=== PATIENT | female | born 1955 | race Caucasian/White ===

== ENCOUNTER 2018-05-30 07:00 | Outpatient (CLI) | payer BC, SELFPAY ==
--- NOTE | 2018-05-30 08:00 | DI.RAD_ITS ---
SYMPTOM/DIAGNOSIS: RT KNEE PAIN, M25.561 RIGHT KNEE: Three views. No priors. No acute fracture or dislocation is seen. The articular surfaces are well maintained. There are calcifications seen within the medullary portion of the distal right femoral metaphysis. Its appearance and location is most suggestive of a benign lesion such as an enchondroma or bone infarct. The soft tissues are unremarkable. IMPRESSION: No acute abnormality.
== END 2018-05-30 07:20 ==
PROVIDERS: PCP Physician Assistant Medical; Visit Provider Physician Assistant Medical
DX: M25.561 Pain in right knee (principal)
CPT/HCPCS: 73562

== ENCOUNTER 2019-09-08 18:48 | Emergency (ER) | payer BC, SELFPAY ==
[2019-09-08 18:54] VITALS: BP 120/78; PULSE 65; RESP 14; TEMP 36.6; O2SAT 96
[2019-09-08] MEDS: Lidocaine 5% Patch 1 PATCH TP (19:28)
[2019-09-08] MEDS: diazePAM 5 MG TAB PO (19:28)
--- NOTE | 2019-09-08 19:28 | ED.GENADUL_ITS ---
Discharge Plan Disposition Patient Disposition: HOME Condition: Improving Discharge Details Chief Complaint: Nk/Back Pain Clinical Impression: Spasm of back muscles Primary Care Provider: Leslie Puri ED Provider: Sergei Freeman Home Meds and New Rx's Prescriptions: New diazepam [Valium] 2 mg tablet 2 mg PO BID PRN (Reason: muscle spasm) Qty: 10 RF: 0 Continued calcium carbonate [Calcium 500] 500 MG tablet 500 mg PO DAILY RF: 0 ascorbic acid (vitamin C) [Vitamin C] 500 MG capsule, extended release 500 mg PO DAILY RF: 0 Estring 1 EACH ring 1 ea VG DIRECTED RF: 0 Complete B 1 tab DAILY RF: 0 Max antioxidant 1 tab DAILY RF: 0 Vitamin D 1 cap PO DAILY RF: 0 magnesium amino acid chelate 100 MG tablet 100 mg PO DAILY RF: 0 melatonin-pyridoxine (vit B6) 1 TAB tablet 1 tab PO HS RF: 0 Discharge Instructions Instructions: Muscle Spasm (ED) Additional Instructions: Please take ibuprofen over the counter. Take 600mg by mouth every 6 hours as needed for pain. Use of the counter lidocaine patches -dose according to label. Please contact your primary care physician to arrange follow-up. Return to the ER immediately for any worsening or new concerning symptoms. Referrals: Leslie Puri [Primary Care Provider] - Discharge Data Discharge Date/Time-TO BE ENTERED AT DEPARTURE: 09/08/19 20:17 Medical Decision Making 19:30 --63-year-old female here with left thoracolumbar paraspinal muscle spasm. Neurologically intact. No trauma. Patient took ibuprofen 600 mg just prior to arrival. Plan to treat with Valium 5 mg orally as well as lidocaine patch. Plan to reassess. -- Patient reassessed and pain improved. Plan for outpatient follow-up with PCP. Usual an customary discharge instructions were provided. HPI General Mode of arrival: ambulatory . Date/Time Provider Initiated Documentation: 09/08/19 19:00 . Limitations to Documentation: no limitations . Information obtained by: patient . HPI Narrative: 63-year-old female presents with chief complaint of back spasm. Patient notes that for the past 1 week she has had intermittent left-sided mid to low back spasm. Spasm is worse with bending and twisting. She has no associated bowel or bladder dysfunction. No numbness or tingling. She does note similar on the right side of her back approximately 2 weeks ago that is now resolved and also prior to this some sciatic pain in her back. She currently does not have any sciatic pain. Patient denies associated fever. Denies abdominal pain. No recent trauma. Patient was recently seen at urgent care and started on methocarbamol which initially was helping but then she developed loose stool and stopped taking this. Related Data Home Medications Medication Instructions Recorded Confirmed Complete B 1 tab DAILY 12/26/14 09/08/19 Estring 1 ea VG DIRECTED script 12/26/14 09/08/19 Max Antioxidant 1 tab DAILY 12/26/14 09/08/19 Vitamin D 1 cap PO DAILY 12/26/14 09/08/19 ascorbic acid (vitamin C) [Vitamin 500 mg PO DAILY 12/26/14 09/08/19 C] calcium carbonate [Calcium 500] 500 mg PO DAILY 12/26/14 09/08/19 melatonin-pyridoxine (vit B6) 1 tab PO HS 04/08/15 09/08/19 magnesium amino acid chelate 100 mg PO DAILY 02/11/17 09/08/19 diazepam [Valium] 2 mg PO BID PRN #10 tab 09/08/19 Previous Rx's Medication Instructions Recorded diazepam [Valium] 2 mg PO BID PRN #10 tab 09/08/19 Allergies Allergy/AdvReac Type Severity Reaction Status Date / Time latex Allergy Intermediate rash Unverified 09/08/19 19:00 codeine AdvReac Nausea Unverified 09/08/19 19:00 lactose AdvReac bloating, Unverified 09/08/19 19:00 diarrhea tetracycline AdvReac migraine Unverified 09/08/19 19:00 if on and out in sunlight dermabond AdvReac Intermediate severe rash Uncoded 09/08/19 19:00 surgical drapes AdvReac Intermediate severe rash Uncoded 09/08/19 19:00 surgical tape AdvReac Intermediate severe rash Uncoded 09/08/19 19:00 General Stated Complaint: Nk/Back Pain CHARITO: 3 Review of Systems Constitutional Constitutional: Denies fever(s) Gastrointestinal Gastrointestinal: Denies abdominal pain Musculoskeletal Musculoskeletal: Reports as per HPI Integumentary/Breasts Skin/Breast: Denies rash Neurologic Neurologic: Reports as per HPI [facility] Medical History AK (actinic keratosis) Elevated triglycerides with high cholesterol Low serum triiodothyronine (T3) Medina neuroma Postmenopausal atrophic vaginitis Surgical History Cholecystectomy (04/09/15) Dr. Nidhi Bowman Colonoscopy - IV Sedation (03/04/17) Excision, Neuroma Bilateral Medina's Neuroma Family History Mother No problems noted. Father Neoplasm Social History Smoking/Tobacco Use Status: Never Alcohol Intake: current Alcohol Intake frequency: holidays/special occasions only Alcohol type: wine Drug use: Never Substance use type: marijuana Do you feel safe at home: Yes Do you feel safe in your relationship?: Yes Exam Const General: cooperative and no acute distress HENMT Mouth: moist mucous membranes Eyes Conjunctivae: normal conjunctivae Sclera: normal sclerae Resp Auscultation: clear to auscultation bilaterally, no rales, no rhonchi and no wheezes Cardio Jugular venous pressure: no JVD Rate: regular rate and not tachycardic Rhythm: regular rhythm Back/Spine/Pelvis Thoracic/Lumbar Spine: paraspinal tenderness (Lower thoracic and upper lumbar left with spasm), No thoracic spinal tenderness and No lumbar spinal tenderness Neuro General: alert, awake and tone normal Motor: muscle tone normal throughout and other (Motor intact bilateral lower extremities) Sensory Exam: no sensory deficits noted (Bilateral lower extremities including no saddle anesthesia) DTR's: Rt Patellar: 1+ and Lt Patellar: 1+ Extrem General: no edema Psych Appearance: grossly normal Mental Status: mental status grossly normal Course Vital Signs Vital signs: Vital Signs Temperature 36.6 C 09/08/19 18:54 Pulse 65 09/08/19 18:54 Respiratory Rate 14 09/08/19 18:54 Blood Pressure 120/78 09/08/19 18:54 Pulse Oximetry 96 09/08/19 18:54 Temperature 36.6 C 09/08/19 18:54 Temperature Source Tympanic 09/08/19 18:54 Pulse 65 09/08/19 18:54 Respiratory Rate 14 09/08/19 18:54 Respiratory Effort Non-Labored 02/15/20 18:58 Blood Pressure 120/78 02/15/20 18:54 Blood Pressure Position Sitting 09/08/19 18:54 Pulse Oximetry 96 09/08/19 18:54 Pain Level 10 09/08/19 18:54 Comment 09/08/19 18:54
== END 2019-09-08 20:17 | disposition home or self-care (01) ==
PROVIDERS: Emergency Provider Student in an Organized Health Care Education/Training Program; PCP Physician Assistant Medical
DX: M62.830 Muscle spasm of back (principal)
CPT/HCPCS: 99283

== ENCOUNTER 2019-09-27 10:49 | Outpatient (CLI) | payer BC, SELFPAY ==
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
== END 2019-09-27 11:09 ==
PROVIDERS: PCP Physician Assistant Medical; Visit Provider Physician Assistant Medical
DX: R07.81 Pleurodynia (principal); R91.8 Other nonspecific abnormal finding of lung field; M85.88 Other specified disorders of bone density and structure, other site; M85.811 Other specified disorders of bone density and structure, right shoulder; M54.32 Sciatica, left side; M84.88 Other disorders of continuity of bone, other site; M53.84 Other specified dorsopathies, thoracic region; S32.040A Wedge compression fracture of fourth lumbar vertebra, initial encounter for closed fracture; Z91.81 History of falling
CPT/HCPCS: 71046; 71100; 72110

== ENCOUNTER 2019-09-28 06:51 | Outpatient (CLI) | payer BC, SELFPAY ==
--- NOTE | 2019-09-28 | DI.RAD_ITS ---
EXAM: XR BONE SURVEY INDICATION: LYTIC LESION BACK AND RIBS,M84.88, ?METASTATIC VS MULTIPLE MYELOMA. COMPARISON: ABD PELVIS WITH CONTRAST from 09/12/2015 XR LUMBAR SPINE COMPLETE from 09/27/2019 TECHNIQUE: 2D digital imaging was performed. FINDINGS: There is a moderate T8 compression fracture. There is a question of a lucency on the left side of th e vertebral body. The technical quality is not optimal. Lucencies of the T12 and L4 vertebral yimi s are again noted. There are innumerable small low-density lesions in the skull. Heart size is norm al. The lungs appear clear. There is deformity of the of the left 3rd rib which could represent an old fracture. There is a suggestion of multiple lucencies throughout the cervical spine. Numerous l ucencies are noted in the right humerus, greatest in the midportion of the humerus. The scapula also shows abnormal lucencies. The left humerus shows numerous small lytic lesions. There is a question of lytic lesions in the proximal portion of both femurs. IMPRESSION: Lytic lesions are seen throughout the axial and appendicular skeleton. The appearance favors multip le myeloma. DATA REPOSITORY: RADIATION DOSE DELIVERED:
== END 2019-09-28 07:11 ==
PROVIDERS: PCP Physician Assistant Medical; Visit Provider Physician Assistant Medical
DX: M84.88 Other disorders of continuity of bone, other site (principal); M48.54XA Collapsed vertebra, not elsewhere classified, thoracic region, initial encounter for fracture
CPT/HCPCS: 77075

== ENCOUNTER 2019-09-30 16:17 | Outpatient (REF) | payer BC, SELFPAY ==
[2019-10-02 15:29] LABS: Albumin, Urine % 2.1 % ((See Note)); Globulins, Urine % 97.9 %; Total Protein Urine 55 mg/dL (See Note); Total Protein, Urine 24hrs 1306 mg/24hrs (<150); Urine Volume 2375 mL
[2019-10-03 09:28] LABS: Immunotyping, Urine (See Note)
== END 2019-09-30 16:37 ==
LOC: LBN 16:17
PROVIDERS: PCP Physician Assistant Medical; Referring Provider Internal Medicine; Visit Provider Physician Assistant Medical
DX: R93.7 Abnormal findings on diagnostic imaging of other parts of musculoskeletal system (principal)
CPT/HCPCS: 84156; 84166; 86335; 81050

== ENCOUNTER 2019-10-21 09:31 | Outpatient (CLI) | payer BC, SELFPAY ==
[2019-10-21 09:45] LABS: Abs Immature Grans 0.02 k/cumm (0.0-0.09); Absolute Basophil Count 0.02 k/cumm (0.0-0.2); Absolute Eosinophil Count 0.01 k/cumm (0.0-0.7); Basophils % 0.2; Eosinophils % 0.1; HCT 34.2 % (36.0-46.0); HGB 11.5 g/dL (12.0-15.5); Immature Grans % 0.2 %; Lymphocytes % 42.7; Mean Corp. HGB Concentration 33.6 g/dL (32.0-36.0); Mean Corpuscular Hemoglobin 31.9 pg (27.0-33.0); Mean Platelet Volume 10.3 fL (8.0-11.0); Monocytes % 5.4; Neutrophils % 51.4; RBC Distribution Width 12.3 % (11.7-14.6); White Blood Cell Count 12.33 k/cumm (4.4-10.8)
[2019-10-21 09:58] LABS: ALT 103 U/L (14-59); AST 100 U/L (15-37); Albumin 3.1 g/dL (3.4-5.0); Alkaline Phosphatase 87 U/L (46-116); Anion Gap 9.8 mmol/L (3-11); BUN 21 mg/dL (7-18); Bilirubin, Total 0.4 mg/dL (0.2-1.0); CO2 24.2 mmol/L (21.0-32.0); Calcium 8.9 mg/dL (8.5-10.1); Chloride 102 mmol/L (98-107); Glucose 102 mg/dL (74-106); Potassium 3.6 mmol/L (3.5-5.1); Sodium 136 mmol/L (136-145); Total Protein 8.5 g/dL (6.4-8.2)
[2019-10-21 10:08] LABS: Absolute Lymphocyte Count 5.26 k/cumm (1.2-3.4); Absolute Monocyte Count 0.67 k/cumm (0.11-0.7); Absolute Neutrophil Count 6.34 k/cumm (1.2-6.7); Diff Comment Agrees w/ Instrument
[2019-10-21 10:09] LABS: Platelet Count 336 x1000/uL (130-400); Polychromasia Present
[2019-10-23 11:52] LABS: IgA 86 mg/dL (85-499); IgG 2643 mg/dL (610-1,616); IgM 43 mg/dL (35-242); Kappa Free Light Chain 54.91 mg/dL (0.33-1.94); Lambda Free Light Chain <0.44 mg/dL (0.57-2.63)
[2019-10-24 13:02] LABS: Albumin 47.6 % (55.8-66.1); Comment (See Note); Total Protein 7.9 g/dL (6.3-8.2)
[2019-10-24 15:20] LABS: Immunotyping, Serum (See Note)
== END 2019-10-21 09:51 ==
PROVIDERS: PCP Physician Assistant Medical; Visit Provider Internal Medicine Hematology & Oncology
DX: C90.00 Multiple myeloma not having achieved remission (principal)
CPT/HCPCS: 36415; 80053; 82784; 83883; 84165; 85025; 86320

== ENCOUNTER 2019-10-29 02:18 | Outpatient (CLI) | payer BC, SELFPAY ==
[2019-10-29 13:01] LABS: Abs Immature Grans 0.07 k/cumm (0.0-0.09); Absolute Basophil Count 0.04 k/cumm (0.0-0.2); Absolute Eosinophil Count 0.17 k/cumm (0.0-0.7); Absolute Lymphocyte Count 3.37 k/cumm (1.2-3.4); Absolute Monocyte Count 0.53 k/cumm (0.11-0.7); Absolute Neutrophil Count 4.19 k/cumm (1.2-6.7); Basophils % 0.5; HCT 34.7 % (36.0-46.0); HGB 11.7 g/dL (12.0-15.5); Immature Grans % 0.8 %; Lymphocytes % 40.3; Mean Corp. HGB Concentration 33.7 g/dL (32.0-36.0); Mean Corpuscular Hemoglobin 32.2 pg (27.0-33.0); Mean Corpuscular Volume 95.6 fL (80-95); Mean Platelet Volume 10.4 fL (8.0-11.0); Monocytes % 6.3; Neutrophils % 50.1; Platelet Count 301 x1000/uL (130-400); RBC 3.63 m/cumm (4.00-5.20); RBC Distribution Width 12.8 % (11.7-14.6); White Blood Cell Count 8.37 k/cumm (4.4-10.8)
[2019-10-29 13:15] LABS: ALT 295 U/L (14-59); AST 132 U/L (15-37); Albumin 3.1 g/dL (3.4-5.0); Alkaline Phosphatase 153 U/L (46-116); Anion Gap 7.2 mmol/L (3-11); BUN 9 mg/dL (7-18); Bilirubin, Total 0.2 mg/dL (0.2-1.0); CO2 27.8 mmol/L (21.0-32.0); CREATININE 0.72 mg/dL (0.55-1.02); Calcium 7.7 mg/dL (8.5-10.1); Chloride 103 mmol/L (98-107); Glucose 99 mg/dL (74-106); Potassium 3.6 mmol/L (3.5-5.1); Sodium 138 mmol/L (136-145); Total Protein 7.7 g/dL (6.4-8.2)
[2019-10-30 10:45] LABS: IgA 72 mg/dL (85-499); IgG 1830 mg/dL (610-1,616); IgM 41 mg/dL (35-242); Kappa Free Light Chain 41.13 mg/dL (0.33-1.94); Lambda Free Light Chain 0.72 mg/dL (0.57-2.63)
[2019-10-30 15:27] LABS: Beta-2-Microglobulin 2.22 mcg/mL
[2019-10-31 16:00] LABS: Comment (See Note); Monoclonal Spike 23.6 % (None Seen); Total Protein 7.2 g/dL (6.3-8.2)
[2019-10-31 22:29] LABS: Viscosity, S 1.1 cpoise (<=1.5)
== END 2019-10-29 02:38 ==
PROVIDERS: PCP Physician Assistant Medical; Visit Provider Internal Medicine Hematology & Oncology
DX: C90.00 Multiple myeloma not having achieved remission (principal)
CPT/HCPCS: 36415; 80053; 82784; 82232; 83883; 84165; 85025; 85810

== ENCOUNTER 2019-11-02 09:22 | Outpatient (CLI) | payer BC, SELFPAY ==
[2019-11-02 09:35] LABS: Abs Immature Grans 0.05 k/cumm (0.0-0.09); Absolute Basophil Count 0.04 k/cumm (0.0-0.2); Absolute Eosinophil Count 0.16 k/cumm (0.0-0.7); Absolute Lymphocyte Count 2.41 k/cumm (1.2-3.4); Absolute Neutrophil Count 4.71 k/cumm (1.2-6.7); Basophils % 0.5; HCT 33.1 % (36.0-46.0); HGB 11.2 g/dL (12.0-15.5); Immature Grans % 0.6 %; Lymphocytes % 29.5; Mean Corp. HGB Concentration 33.8 g/dL (32.0-36.0); Mean Corpuscular Hemoglobin 32.2 pg (27.0-33.0); Mean Corpuscular Volume 95.1 fL (80-95); Mean Platelet Volume 10.5 fL (8.0-11.0); Monocytes % 9.8; Neutrophils % 57.6; Platelet Count 321 x1000/uL (130-400); RBC 3.48 m/cumm (4.00-5.20); RBC Distribution Width 12.7 % (11.7-14.6); White Blood Cell Count 8.17 k/cumm (4.4-10.8)
[2019-11-02 09:50] LABS: ALT 191 U/L (14-59); AST 120 U/L (15-37); Albumin 2.9 g/dL (3.4-5.0); Alkaline Phosphatase 139 U/L (46-116); Anion Gap 10.1 mmol/L (3-11); BUN 12 mg/dL (7-18); Bilirubin, Total 0.4 mg/dL (0.2-1.0); CO2 23.9 mmol/L (21.0-32.0); Calcium 8.5 mg/dL (8.5-10.1); Chloride 106 mmol/L (98-107); Glucose 90 mg/dL (74-106); Potassium 3.9 mmol/L (3.5-5.1); Sodium 140 mmol/L (136-145); Total Protein 7.4 g/dL (6.4-8.2)
== END 2019-11-02 09:42 ==
PROVIDERS: PCP Physician Assistant Medical; Visit Provider Internal Medicine Hematology & Oncology
DX: C90.00 Multiple myeloma not having achieved remission (principal)
CPT/HCPCS: 36415; 80053; 85025

== ENCOUNTER 2019-11-06 01:53 | Outpatient (CLI) | payer BC, SELFPAY ==
[2019-11-06 10:24] LABS: Abs Immature Grans 0.02 k/cumm (0.0-0.09); Absolute Basophil Count 0.02 k/cumm (0.0-0.2); Absolute Eosinophil Count 0.11 k/cumm (0.0-0.7); Absolute Lymphocyte Count 0.99 k/cumm (1.2-3.4); Absolute Monocyte Count 0.25 k/cumm (0.11-0.7); Absolute Neutrophil Count 5.33 k/cumm (1.2-6.7); Basophils % 0.3; Eosinophils % 1.6; HCT 35.2 % (36.0-46.0); HGB 11.7 g/dL (12.0-15.5); Immature Grans % 0.3 %; Lymphocytes % 14.7; Mean Corp. HGB Concentration 33.2 g/dL (32.0-36.0); Mean Corpuscular Hemoglobin 31.9 pg (27.0-33.0); Mean Corpuscular Volume 95.9 fL (80-95); Mean Platelet Volume 10.7 fL (8.0-11.0); Monocytes % 3.7; Neutrophils % 79.4; Platelet Count 312 x1000/uL (130-400); RBC 3.67 m/cumm (4.00-5.20); RBC Distribution Width 12.9 % (11.7-14.6); White Blood Cell Count 6.72 k/cumm (4.4-10.8)
[2019-11-06 11:20] LABS: ALT 122 U/L (14-59); AST 89 U/L (15-37); Albumin 3.1 g/dL (3.4-5.0); Alkaline Phosphatase 137 U/L (46-116); Anion Gap 8.6 mmol/L (3-11); BUN 9 mg/dL (7-18); Bilirubin, Total 0.3 mg/dL (0.2-1.0); CO2 27.4 mmol/L (21.0-32.0); CREATININE 0.73 mg/dL (0.55-1.02); Calcium 7.9 mg/dL (8.5-10.1); Chloride 105 mmol/L (98-107); Glucose 90 mg/dL (74-106); Sodium 141 mmol/L (136-145); Total Protein 6.4 g/dL (6.4-8.2)
[2019-11-08 11:20] LABS: IgA 94 mg/dL (85-499); IgG 2409 mg/dL (610-1,616); IgM 30 mg/dL (35-242); Lambda Free Light Chain 1.91 mg/dL (0.57-2.63)
== END 2019-11-06 02:13 ==
PROVIDERS: PCP Physician Assistant Medical; Visit Provider Internal Medicine Hematology & Oncology
DX: C90.00 Multiple myeloma not having achieved remission (principal)
CPT/HCPCS: 36415; 80053; 82784; 83883; 85025

== ENCOUNTER 2019-11-16 14:44 | Outpatient (RCR) | payer BC, SELFPAY ==
[2019-11-16 14:57] LABS: Abs Immature Grans 0.02 k/cumm (0.0-0.09); Absolute Basophil Count 0.16 k/cumm (0.0-0.2); Absolute Eosinophil Count 0.18 k/cumm (0.0-0.7); Absolute Lymphocyte Count 2.59 k/cumm (1.2-3.4); Basophils % 2.6; Eosinophils % 2.9; HCT 37.5 % (36.0-46.0); HGB 12.5 g/dL (12.0-15.5); Immature Grans % 0.3 %; Lymphocytes % 42.1; Mean Corp. HGB Concentration 33.3 g/dL (32.0-36.0); Mean Corpuscular Hemoglobin 31.8 pg (27.0-33.0); Mean Corpuscular Volume 95.4 fL (80-95); Mean Platelet Volume 10.9 fL (8.0-11.0); Monocytes % 11.4; Neutrophils % 40.7; Platelet Count 312 x1000/uL (130-400); RBC 3.93 m/cumm (4.00-5.20); RBC Distribution Width 12.9 % (11.7-14.6); White Blood Cell Count 6.15 k/cumm (4.4-10.8)
[2019-11-16 15:12] LABS: ALT 93 U/L (14-59); AST 60 U/L (15-37); Albumin 3.5 g/dL (3.4-5.0); Alkaline Phosphatase 203 U/L (46-116); Anion Gap 6.6 mmol/L (3-11); BUN 11 mg/dL (7-18); Bilirubin, Total 0.4 mg/dL (0.2-1.0); CO2 28.4 mmol/L (21.0-32.0); CREATININE 0.68 mg/dL (0.55-1.02); Calcium 8.4 mg/dL (8.5-10.1); Chloride 104 mmol/L (98-107); Glucose 81 mg/dL (74-106); Potassium 3.3 mmol/L (3.5-5.1); Sodium 139 mmol/L (136-145); Total Protein 7.1 g/dL (6.4-8.2)
== END 2019-11-22 23:59 | disposition home or self-care (01) ==
LOC: INF 14:44
PROVIDERS: PCP Physician Assistant Medical; Visit Provider Internal Medicine Hematology & Oncology
DX: C90.00 Multiple myeloma not having achieved remission (principal)
CPT/HCPCS: 36415; 80053; 85025

== ENCOUNTER 2019-12-03 01:40 | Outpatient (CLI) | payer BC, SELFPAY ==
--- NOTE | 2019-12-03 | DI.RAD_ITS ---
EXAM: XR HUMERUS RT CLINICAL HISTORY: F/U RT HUMERUS LESION, M69.9, H/O MULTIPLE MYELOMA, ASSESS FOR CHANGE TECHNIQUE: COMPARISON: CR XR BONE SURVEY from 09/28/2019 FINDINGS: Two views of the humerus were obtained to re-evaluate multiple lytic lesions identified in the humeru s on prior films of 09/28/2019 on the skeletal survey series. Comparison of the current examination with the prior examination shows increasing number of visible l ytic lesions in the humeral shaft. There appears to be increasing confluence of the largest group of lytic lesions which lie in the mid humerus. Subtle lytic lesions of the scapula appear to be presen t as well. IMPRESSION: Interval worsening of multiple humeral lytic lesions as described above since examination of September 27.
== END 2019-12-03 02:00 ==
PROVIDERS: PCP Physician Assistant Medical; Visit Provider Orthopaedic Surgery
DX: C90.00 Multiple myeloma not having achieved remission (principal); M85.811 Other specified disorders of bone density and structure, right shoulder
CPT/HCPCS: 73060

== ENCOUNTER 2019-12-18 01:16 | Outpatient (RCR) | payer BC, SELFPAY ==
[2019-11-23] MEDS: Normal Saline Flush 10 ML SYR IVP (13:52)
[2019-11-23 13:56] LABS: Abs Immature Grans 0.05 k/cumm (0.0-0.09); Absolute Basophil Count 0.06 k/cumm (0.0-0.2); Absolute Eosinophil Count 0.25 k/cumm (0.0-0.7); Absolute Lymphocyte Count 2.29 k/cumm (1.2-3.4); Absolute Monocyte Count 0.48 k/cumm (0.11-0.7); Absolute Neutrophil Count 6.16 k/cumm (1.2-6.7); Basophils % 0.6; Eosinophils % 2.7; HCT 40.1 % (36.0-46.0); HGB 13.4 g/dL (12.0-15.5); Immature Grans % 0.5 %; Lymphocytes % 24.7; Mean Corp. HGB Concentration 33.4 g/dL (32.0-36.0); Mean Corpuscular Hemoglobin 31.6 pg (27.0-33.0); Mean Corpuscular Volume 94.6 fL (80-95); Mean Platelet Volume 12.9 fL (8.0-11.0); Monocytes % 5.2; Neutrophils % 66.3; Platelet Count 254 x1000/uL (130-400); RBC 4.24 m/cumm (4.00-5.20); RBC Distribution Width 13.1 % (11.7-14.6); White Blood Cell Count 9.29 k/cumm (4.4-10.8)
[2019-11-23 14:10] LABS: ALT 63 U/L (14-59); Albumin 3.6 g/dL (3.4-5.0); Alkaline Phosphatase 176 U/L (46-116); Anion Gap 7.4 mmol/L (3-11); BUN 10 mg/dL (7-18); Bilirubin, Total 0.7 mg/dL (0.2-1.0); CO2 27.6 mmol/L (21.0-32.0); CREATININE 0.66 mg/dL (0.55-1.02); Calcium 8.3 mg/dL (8.5-10.1); Chloride 102 mmol/L (98-107); Glucose 88 mg/dL (74-106); Potassium 4.5 mmol/L (3.5-5.1); Sodium 137 mmol/L (136-145); Total Protein 7.4 g/dL (6.4-8.2)
[2019-11-23 14:33] LABS: AST 66 U/L (15-37)
[2019-11-26 12:49] LABS: IgA 75 mg/dL (85-499); IgG 603 mg/dL (610-1,616); IgM 51 mg/dL (35-242); Kappa Free Light Chain 1.31 mg/dL (0.33-1.94); Lambda Free Light Chain 0.76 mg/dL (0.57-2.63)
[2019-11-26 14:49] LABS: Albumin 60.6 % (55.8-66.1); Comment (See Note); Total Protein 6.7 g/dL (6.3-8.2)
[2019-11-26 15:15] LABS: Immunotyping, Serum (See Note)
[2019-12-04] MEDS: Normal Saline Flush 10 ML SYR IVP (14:39)
[2019-12-04 14:49] LABS: Abs Immature Grans 0.01 k/cumm (0.0-0.09); Absolute Basophil Count 0.03 k/cumm (0.0-0.2); Absolute Lymphocyte Count 0.49 k/cumm (1.2-3.4); Absolute Monocyte Count 0.03 k/cumm (0.11-0.7); Absolute Neutrophil Count 4.68 k/cumm (1.2-6.7); Basophils % 0.6; HCT 36.8 % (36.0-46.0); HGB 12.3 g/dL (12.0-15.5); Immature Grans % 0.2 %; Lymphocytes % 9.4; Mean Corp. HGB Concentration 33.4 g/dL (32.0-36.0); Mean Corpuscular Hemoglobin 31.7 pg (27.0-33.0); Mean Corpuscular Volume 94.8 fL (80-95); Mean Platelet Volume 10.7 fL (8.0-11.0); Monocytes % 0.6; Neutrophils % 89.2; Platelet Count 273 x1000/uL (130-400); RBC 3.88 m/cumm (4.00-5.20); RBC Distribution Width 13.4 % (11.7-14.6); White Blood Cell Count 5.24 k/cumm (4.4-10.8)
[2019-12-04 14:58] LABS: ALT 44 U/L (14-59); AST 32 U/L (15-37); Albumin 3.7 g/dL (3.4-5.0); Alkaline Phosphatase 147 U/L (46-116); Anion Gap 12.8 mmol/L (3-11); BUN 11 mg/dL (7-18); Bilirubin, Total 0.4 mg/dL (0.2-1.0); CO2 22.2 mmol/L (21.0-32.0); CREATININE 0.86 mg/dL (0.55-1.02); Calcium 8.3 mg/dL (8.5-10.1); Chloride 105 mmol/L (98-107); Glucose 216 mg/dL (74-106); Potassium 3.9 mmol/L (3.5-5.1); Sodium 140 mmol/L (136-145); Total Protein 6.9 g/dL (6.4-8.2)
[2019-12-18 10:25] LABS: Abs Immature Grans 0.03 k/cumm (0.0-0.09); Absolute Basophil Count 0.03 k/cumm (0.0-0.2); Absolute Eosinophil Count 0.17 k/cumm (0.0-0.7); Absolute Lymphocyte Count 1.44 k/cumm (1.2-3.4); Absolute Neutrophil Count 6.73 k/cumm (1.2-6.7); Basophils % 0.3; Eosinophils % 1.8; HGB 11.8 g/dL (12.0-15.5); Immature Grans % 0.3 %; Lymphocytes % 15.7; Mean Corp. HGB Concentration 32.8 g/dL (32.0-36.0); Mean Corpuscular Hemoglobin 30.9 pg (27.0-33.0); Mean Corpuscular Volume 94.2 fL (80-95); Mean Platelet Volume 12.9 fL (8.0-11.0); Monocytes % 8.7; Neutrophils % 73.2; Platelet Count 220 x1000/uL (130-400); RBC 3.82 m/cumm (4.00-5.20); RBC Distribution Width 13.6 % (11.7-14.6)
[2019-12-18 10:43] LABS: ALT 55 U/L (14-59); AST 37 U/L (15-37); Albumin 3.3 g/dL (3.4-5.0); Alkaline Phosphatase 88 U/L (46-116); Anion Gap 7.2 mmol/L (3-11); BUN 15 mg/dL (7-18); Bilirubin, Total 0.6 mg/dL (0.2-1.0); CO2 24.8 mmol/L (21.0-32.0); CREATININE 0.59 mg/dL (0.55-1.02); Calcium 8.1 mg/dL (8.5-10.1); Chloride 103 mmol/L (98-107); Glucose 93 mg/dL (74-106); Potassium 4.4 mmol/L (3.5-5.1); Sodium 135 mmol/L (136-145); Total Protein 6.4 g/dL (6.4-8.2)
[2019-12-19 10:30] LABS: IgA 49 mg/dL (85-499); IgG 454 mg/dL (610-1,616); IgM 40 mg/dL (35-242); Kappa Free Light Chain 1.43 mg/dL (0.33-1.94); Lambda Free Light Chain 0.65 mg/dL (0.57-2.63)
[2019-12-19 12:58] LABS: Comment (See Note); Total Protein 5.8 g/dL (6.3-8.2)
[2019-12-19 16:22] LABS: Immunotyping, Serum (See Note)
== END 2019-12-23 23:59 | disposition home or self-care (01) ==
LOC: INF 01:16
PROVIDERS: Internal Medicine Hematology & Oncology; PCP Physician Assistant Medical; Visit Provider Internal Medicine Hematology & Oncology
DX: C90.00 Multiple myeloma not having achieved remission (principal)
CPT/HCPCS: 36415; 80053; 82784; 83883; 84165; 85025; 86320

== ENCOUNTER 2020-01-08 00:42 | Outpatient (RCR) | payer BC, SELFPAY ==
[2020-01-08 13:28] LABS: Abs Immature Grans 0.03 k/cumm (0.0-0.09); Absolute Basophil Count 0.03 k/cumm (0.0-0.2); Absolute Eosinophil Count 0.03 k/cumm (0.0-0.7); Absolute Lymphocyte Count 0.73 k/cumm (1.2-3.4); Absolute Monocyte Count 0.09 k/cumm (0.11-0.7); Basophils % 0.3; Eosinophils % 0.3; HCT 39.6 % (36.0-46.0); HGB 13.5 g/dL (12.0-15.5); Immature Grans % 0.3 %; Lymphocytes % 7.7; Mean Corp. HGB Concentration 34.1 g/dL (32.0-36.0); Mean Corpuscular Hemoglobin 31.1 pg (27.0-33.0); Mean Corpuscular Volume 91.2 fL (80-95); Mean Platelet Volume 10.9 fL (8.0-11.0); Monocytes % 0.9; Neutrophils % 90.5; Platelet Count 326 x1000/uL (130-400); RBC 4.34 m/cumm (4.00-5.20); RBC Distribution Width 12.9 % (11.7-14.6); White Blood Cell Count 9.51 k/cumm (4.4-10.8)
[2020-01-08 13:38] LABS: ALT 64 U/L (14-59); AST 28 U/L (15-37); Albumin 3.7 g/dL (3.4-5.0); Alkaline Phosphatase 83 U/L (46-116); Anion Gap 10.6 mmol/L (3-11); BUN 13 mg/dL (7-18); Bilirubin, Total 0.5 mg/dL (0.2-1.0); CO2 25.4 mmol/L (21.0-32.0); CREATININE 0.75 mg/dL (0.55-1.02); Calcium 8.5 mg/dL (8.5-10.1); Chloride 103 mmol/L (98-107); Glucose 125 mg/dL (74-106); Potassium 3.6 mmol/L (3.5-5.1); Sodium 139 mmol/L (136-145)
[2020-01-09 10:33] LABS: IgA 64 mg/dL (85-499); IgG 501 mg/dL (610-1,616); IgM 47 mg/dL (35-242); Kappa Free Light Chain 1.19 mg/dL (0.33-1.94); Lambda Free Light Chain 0.69 mg/dL (0.57-2.63)
[2020-01-09 13:53] LABS: Albumin 63.5 % (55.8-66.1); Comment (See Note); Total Protein 6.3 g/dL (6.3-8.2)
[2020-01-18 12:10] LABS: Immunotyping, Serum (See Note)
== END 2020-01-22 23:59 | disposition home or self-care (01) ==
LOC: INF 00:42
PROVIDERS: PCP Physician Assistant Medical; Visit Provider Internal Medicine Hematology & Oncology
DX: C90.00 Multiple myeloma not having achieved remission (principal)
CPT/HCPCS: 36415; 80053; 82784; 83883; 84165; 85025; 86320

== ENCOUNTER 2020-02-06 00:58 | Outpatient (RCR) | payer BC, SELFPAY ==
[2020-02-06 08:08] LABS: Abs Immature Grans 0.01 k/cumm (0.0-0.09); Absolute Basophil Count 0.12 k/cumm (0.0-0.2); Absolute Eosinophil Count 0.21 k/cumm (0.0-0.7); Absolute Lymphocyte Count 3.09 k/cumm (1.2-3.4); Absolute Monocyte Count 0.33 k/cumm (0.11-0.7); Absolute Neutrophil Count 2.43 k/cumm (1.2-6.7); Basophils % 1.9; Eosinophils % 3.4; HGB 13.5 g/dL (12.0-15.5); Immature Grans % 0.2 %; Lymphocytes % 49.9; Mean Corp. HGB Concentration 33.8 g/dL (32.0-36.0); Mean Corpuscular Hemoglobin 30.7 pg (27.0-33.0); Mean Corpuscular Volume 90.9 fL (80-95); Mean Platelet Volume 11.1 fL (8.0-11.0); Monocytes % 5.3; Neutrophils % 39.3; Platelet Count 250 x1000/uL (130-400); RBC Distribution Width 13.1 % (11.7-14.6); White Blood Cell Count 6.19 k/cumm (4.4-10.8)
[2020-02-06 08:11] LABS: ALT 55 U/L (14-59); AST 38 U/L (15-37); Albumin 3.7 g/dL (3.4-5.0); Alkaline Phosphatase 69 U/L (46-116); Anion Gap 9.8 mmol/L (3-11); BUN 12 mg/dL (7-18); Bilirubin, Total 0.5 mg/dL (0.2-1.0); CO2 25.2 mmol/L (21.0-32.0); CREATININE 0.74 mg/dL (0.55-1.02); Calcium 8.6 mg/dL (8.5-10.1); Chloride 105 mmol/L (98-107); Glucose 93 mg/dL (74-106); Potassium 4.2 mmol/L (3.5-5.1); Sodium 140 mmol/L (136-145); Total Protein 6.5 g/dL (6.4-8.2)
[2020-02-07 10:23] LABS: IgA 63 mg/dL (85-499); IgG 454 mg/dL (610-1,616); IgM 40 mg/dL (35-242); Kappa Free Light Chain 1.09 mg/dL (0.33-1.94); Lambda Free Light Chain <0.44 mg/dL (0.57-2.63)
[2020-02-07 15:11] LABS: Albumin 65.4 % (55.8-66.1); Comment (See Note); Total Protein 5.9 g/dL (6.3-8.2)
[2020-02-07 15:42] LABS: Immunotyping, Serum (See Note)
== END 2020-02-22 23:59 | disposition home or self-care (01) ==
LOC: INF 00:58
PROVIDERS: Internal Medicine Hematology & Oncology; PCP Physician Assistant Medical; Visit Provider Internal Medicine Hematology & Oncology
DX: C90.00 Multiple myeloma not having achieved remission (principal); Z45.2 Encounter for adjustment and management of vascular access device
CPT/HCPCS: 36415; 80053; 82784; 83883; 84165; 85025; 86320

== ENCOUNTER 2020-03-03 01:55 | Outpatient (CLI) | payer BC, SELFPAY ==
--- NOTE | 2020-03-03 08:30 | DI.RAD_ITS ---
EXAM: XR HUMERUS RT CLINICAL HISTORY: BONE LESION,M89.9,H/O MULTIPLE MYELOMA,ASSESS RESPONSE TO TREATMENT AND FOR. TECHNIQUE: 2D digital imaging was performed. COMPARISON: CR XR HUMERUS RT from 12/03/2019 FINDINGS: BONES: No acute fracture or dislocation. There are stable lytic lesions involving the right humerus in the visualized scapula and right ribs. These appears stable. Visualized portion of elbow and milton ulder joints are unremarkable. SOFT TISSUE: Normal. IMPRESSION: Stable osseous lytic lesions. No acute fracture or dislocation. DATA REPOSITORY: RADIATION DOSE DELIVERED:
== END 2020-03-03 02:15 ==
PROVIDERS: PCP Physician Assistant Medical; Visit Provider Orthopaedic Surgery
DX: C90.00 Multiple myeloma not having achieved remission (principal); M89.9 Disorder of bone, unspecified
CPT/HCPCS: 73060

== ENCOUNTER 2020-04-23 12:00 | Outpatient (RCR) | payer BC, SELFPAY ==
[2020-04-23] MEDS: Normal Saline Flush 10 ML SYR IVP (12:05)
[2020-04-23 12:11] LABS: Abs Immature Grans 0.02 10^3/uL (0.0-0.06); Absolute Basophil Count 0.02 10^3/uL (0.0-0.2); Absolute Eosinophil Count 0.02 10^3/uL (0.0-0.7); Absolute Lymphocyte Count 0.42 10^3/uL (1.2-3.4); Absolute Monocyte Count 0.04 10^3/uL (0.1-0.8); Absolute Neutrophil Count 6.15 10^3/uL (1.2-6.7); Basophils % 0.3; Eosinophils % 0.3; HGB 11.5 g/dL (11.2-15.7); Immature Grans % 0.3; Lymphocytes % 6.3; MCH 32.4 pg (27.0-33.0); MCHC 33.8 % (32.0-36.0); MCV 95.8 fL (80-95); MPV 10.7 fL (8.0-11.0); Monocytes % 0.6; Neutrophils % 92.2; Nucleated RBC 0 %; Platelet Count 283 10^3/uL (130-400); RBC 3.55 10^6/uL (3.93-5.22); RDW 13.2 % (11.7-14.6); RDW-SD 47.1 fL; WBC 6.67 10^3/uL (4.4-10.8)
[2020-04-23 12:42] LABS: ALT 57 U/L (14-59); AST 32 U/L (15-37); Albumin 3.7 g/dL (3.4-5.0); Alkaline Phosphatase 70 U/L (46-116); Anion Gap 10.1 mmol/L (3-11); BUN 14 mg/dL (7-18); Bilirubin, Total 0.8 mg/dL (0.2-1.0); CO2 24.9 mmol/L (21.0-32.0); CREATININE 0.68 mg/dL (0.55-1.02); Calcium 8.4 mg/dL (8.5-10.1); Chloride 103 mmol/L (98-107); Glucose 122 mg/dL (74-106); Potassium 3.8 mmol/L (3.5-5.1); Sodium 138 mmol/L (136-145); Total Protein 6.5 g/dL (6.4-8.2)
== END 2020-04-23 23:59 | disposition home or self-care (01) ==
LOC: INF 12:00
PROVIDERS: PCP Physician Assistant Medical; Visit Provider Internal Medicine Hematology & Oncology
DX: C90.00 Multiple myeloma not having achieved remission (principal); Z45.2 Encounter for adjustment and management of vascular access device
CPT/HCPCS: 36591; 80053; 85025

== ENCOUNTER 2020-05-06 12:18 | Emergency (ER) | payer BC, SELFPAY ==
[2020-05-06] VITALS (31 sets, daily range): BP systolic 95–116; BP diastolic 45–64; PULSE 54–69; RESP 8–21; TEMP 36.5–36.9; O2SAT 95–100
--- NOTE | 2020-05-06 12:30 | RT.EKG_ITS ---
APPROVED REPORT Exam: Resting ECG Patient Location: E HR:59 bpm ECG Measurements Heart Rate 59 AXIS AK 191 P 71 QRSd 80 QRS 58 QT 459 T 45 QTc 456 Conclusion Sinus bradycardia...rate< 60 Probable left atrial enlargement...P >50mS, <-0.10mV V1. I have reviewed and interpreted ECG and agree with software generated interpretation.
[2020-05-06] MEDS: Normal Saline 1,000 ML 1000 ML IV (12:56)
--- NOTE | 2020-05-06 13:03 | ED.GENADUL_ITS ---
Discharge Plan Disposition Patient Disposition: HOME Condition: Stable Discharge Details Clinical Impression: Nausea vomiting and diarrhea Primary Care Provider: Leslie Puri ED Provider: Mercedes Chew Home Meds and New Rx's Prescriptions: Continued calcium carbonate [Calcium 500] 500 MG tablet 500 mg PO DAILY RF: 0 ascorbic acid (vitamin C) [Vitamin C] 500 MG capsule, extended release 500 mg PO DAILY RF: 0 Estring 1 EACH ring 1 ea VG DIRECTED RF: 0 Complete B 1 tab DAILY RF: 0 Max antioxidant 1 tab DAILY RF: 0 Vitamin D 1 cap PO DAILY RF: 0 magnesium amino acid chelate 100 MG tablet 100 mg PO DAILY RF: 0 melatonin-pyridoxine (vit B6) 1 TAB tablet 1 tab PO HS RF: 0 loperamide 2 mg capsule 2 mg PO QID RF: 0 aspirin 325 mg Tablet 325 mg PO DAILY RF: 0 ondansetron HCl 4 mg tablet 4 mg PO Q6H PRN PRNRF: 0 acyclovir 400 mg Tablet 400 mg PO BID RF: 0 cephalexin 500 mg capsule 500 mg PO QID RF: 0 erythromycin 5 mg/gram (0.5 %) ointment 1 applic ophthalmic (eye) Q8H RF: 0 dexamethasone 4 mg tablet 4 mg PO .DAILY X 4 DAYS RF: 0 Revlimid 25 mg capsule 25 mg PO .DAILY X 21 DAYS RF: 0 Zarxio 300 mcg/0.5 mL syringe RF: 0 diazepam [Valium] 2 mg tablet 2 mg PO BID PRN (Reason: muscle spasm) Qty: 10 RF: 0 Discharge Instructions Instructions: Acute Nausea and Vomiting (ED) Additional Instructions: Follow up with primary care provider in 3-5 days. Return to ED sooner if any worsening or concerns. Increase oral fluids. Please take Tylenol or Ibuprofen with food every 4-6 hours as needed for pain and swelling. Please collect the stool sample as directed at home and bring to the lab at your convenience. We were able to add on your multiple myeloma markers to your lab work collected here today. You do not need to come in tomorrow to have your blood drawn. Referrals: Leslie Puri [Primary Care Provider] - Discharge Data Discharge Date/Time-TO BE ENTERED AT DEPARTURE: 05/06/20 15:45 Medical Decision Making Work-up ordered including CBC, CMP, troponin, urinalysis, stool PCR, ova and parasites and C. difficile. CBC shows no leukocytosis, white blood cell count of 6.54, hemoglobin 12.9, hematocrit 39.2, sodium 138, potassium 3.5, BUN 14, creatinine 0.70 with a GFR greater than 60. Calcium is 8.4, AST is 41 and ALT is 185. Discussed lab results with patient she is requesting to have some multiple myeloma markers added onto her lab work which she was due to have drawn tomorrow. Lab called and they verify that they are able to add on the pending tests to her already drawn blood. No imaging was ordered at this time due to patient not having any pain. At the time of this dictation Covid is negative, C. difficile stool is negative, no ova or parasites seen. Patient discharged home with follow-up with PCP. HPI General Mode of arrival: ambulatory . Date/Time Provider Initiated Documentation: 05/06/20 12:38 . Limitations to Documentation: no limitations . Information obtained by: patient . HPI Narrative: 64-year-old female presents to the ED with chief complaint of nausea and vomiting x3 days. Diarrhea began 1 week ago. Patient is currently on cephalexin for a cellulitis covering her Port -A-Cath. Patient does have a history of multiple myeloma which she is currently undergoing treatment for. She reports nausea vomiting, which causes her to cough after the episodes. She has 2 out of 10 chest pain on arrival. She denies any abdominal pain or any other concerns at this time. No fever. Related Data Home Medications Medication Instructions Recorded Confirmed Complete B 1 tab DAILY 12/26/14 05/06/20 Estring 1 ea VG DIRECTED script 12/26/14 05/06/20 Max Antioxidant 1 tab DAILY 12/26/14 05/06/20 Vitamin D 1 cap PO DAILY 12/26/14 05/06/20 ascorbic acid (vitamin C) [Vitamin 500 mg PO DAILY 12/26/14 05/06/20 C] calcium carbonate [Calcium 500] 500 mg PO DAILY 12/26/14 05/06/20 melatonin-pyridoxine (vit B6) 1 tab PO HS 04/08/15 05/06/20 magnesium amino acid chelate 100 mg PO DAILY 02/11/17 05/06/20 diazepam [Valium] 2 mg PO BID PRN #10 tab 09/08/19 05/06/20 Revlimid 25 mg PO .DAILY X 21 DAYS 05/06/20 05/06/20 Zarxio 05/06/20 05/06/20 acyclovir 400 mg PO BID 05/06/20 05/06/20 aspirin 325 mg PO DAILY 05/06/20 05/06/20 cephalexin 500 mg PO QID 05/06/20 05/06/20 dexamethasone 4 mg PO .DAILY X 4 DAYS 05/06/20 05/06/20 erythromycin 1 applic OPHTHALMIC (EYE) Q8H 05/06/20 05/06/20 loperamide 2 mg PO QID 05/06/20 05/06/20 ondansetron HCl 4 mg PO Q6H PRN PRN 05/06/20 05/06/20 Previous Rx's Medication Instructions Recorded diazepam [Valium] 2 mg PO BID PRN #10 tab 09/08/19 Allergies Allergy/AdvReac Type Severity Reaction Status Date / Time latex Allergy Intermediate rash Unverified 05/06/20 12:39 codeine AdvReac Nausea Unverified 05/06/20 12:39 lactose AdvReac bloating, Unverified 05/06/20 12:39 diarrhea tetracycline AdvReac migraine Unverified 05/06/20 12:39 if on and out in sunlight dermabond AdvReac Intermediate severe rash Uncoded 05/06/20 12:39 surgical drapes AdvReac Intermediate severe rash Uncoded 05/06/20 12:39 surgical tape AdvReac Intermediate severe rash Uncoded 05/06/20 12:39 General Stated Complaint: Nausea/Vomit/Diar CHARITO: 3 Review of Systems Narrative: Constitutional: Negative for weight loss, alert and oriented, well groomed, normal body habitus, appears comfortable. Has a Port-A-Cath in place and history of multiple myeloma. HEENT: Denies trauma, headaches, blurry vision, nasal discharge, tickle in my throat trouble swallowing. Chest: Denies palpitations, irregular rhythm, hypertension. Mild chest pain. She describes as tightness. Respiratory: Denies Shortness of breath, cough, hemoptysis. GI: Denies abdominal pain, constipation. Positive nausea vomiting diarrhea. : Denies dysuria, hematuria, flank pain, rectal bleeding. Neuro: Denies dizziness, blurry vision, weakness, syncope, headache or facial numbness. Hematologic: Denies easy bruising, intolerance to heat or cold, hair loss. [facility] Medical History (Updated 05/06/20 @ 15:08 by Mercedes Chew) [place] (actinic keratosis) Elevated triglycerides with high cholesterol Low serum triiodothyronine (T3) Medina neuroma Postmenopausal atrophic vaginitis Surgical History Cholecystectomy (04/09/15) Dr. Nidhi Bowman Colonoscopy - IV Sedation (03/04/17) Excision, Neuroma Bilateral Medina's Neuroma Family History Mother No problems noted. Father Neoplasm Social History Smoking/Tobacco Use Status: Never Alcohol Intake: current Alcohol Intake frequency: holidays/special occasions only Alcohol type: wine Drug use: Never Substance use type: marijuana Do you feel safe at home: Yes Do you feel safe in your relationship?: Yes Exam Narrative Exam Narrative: Constitutional: Alert and oriented x3. Appears stated age. Normal body habitus. Head: Normocephalic, no trauma. Eyes: Pupils PERRLA, Red reflex noted, EOM's intact. Eyelids symmetrical without lesions, discharge, or swelling. ENT: Bilateral TM's WNL, External ear normal to inspection, no mastoid TTP, swelling, or erythema, Nasal turbinates WNL, no nasal discharge. Normal dentition, Posterior pharynx WNL, no exudate. Chest: RRR, Normal S1, S2, distal pulses intact. She does have a Port-A-Cath noted over the right anterior chest, there is slight erythema noted over the site non-indurated non-warm. Resp: Lungs clear to auscultation bilaterally, no wheezes, rales, or rhonchi. Musculoskeletal: Normal gait, 5/5 strength to all four extremities. Skin: No suspicious rashes or lesions. Capillary refill less than 2 sec. Neurologic: Cranial nerves II-XII intact. Alert and oriented x 3. DTR's intact. Hematologic/Lymphatic: No ecchymosis, no lymphadenopathy. Course Vital Signs Vital signs: Vital Signs Temperature 36.9 C 05/06/20 12:30 Pulse 69 05/06/20 12:30 Respiratory Rate 20 05/06/20 12:30 Blood Pressure 116/53 L 05/06/20 12:30 Pulse Oximetry 99 05/06/20 12:30 Temperature 36.9 C 05/06/20 12:30 Temperature Source Skin 05/06/20 12:30 Pulse 69 05/06/20 12:30 Respiratory Rate 20 05/06/20 12:30 Respiratory Effort Non-Labored 05/06/20 12:38 Blood Pressure 116/53 L 05/06/20 12:30 Blood Pressure Position Supine 05/06/20 12:30 Pulse Oximetry 99 05/06/20 12:30 Oxygen Delivery Method Room Air 05/06/20 12:30 Oxygen Flow Rate 0 05/06/20 12:30 Pain Level 0 05/06/20 12:30
[2020-05-06 13:05] LABS: Abs Immature Grans 0.04 10^3/uL (0.0-0.06); Absolute Basophil Count 0.02 10^3/uL (0.0-0.2); Absolute Eosinophil Count 0.15 10^3/uL (0.0-0.7); Absolute Lymphocyte Count 0.76 10^3/uL (1.2-3.4); Absolute Monocyte Count 0.48 10^3/uL (0.1-0.8); Absolute Neutrophil Count 5.09 10^3/uL (1.2-6.7); Basophils % 0.3; Eosinophils % 2.3; HCT 39.2 % (36.0-46.0); HGB 12.9 g/dL (11.2-15.7); Immature Grans % 0.6; Lymphocytes % 11.6; MCH 31.5 pg (27.0-33.0); MCHC 32.9 % (32.0-36.0); MCV 95.8 fL (80-95); MPV 11.3 fL (8.0-11.0); Monocytes % 7.3; Neutrophils % 77.9; Nucleated RBC 0 %; Platelet Count 200 10^3/uL (130-400); RBC 4.09 10^6/uL (3.93-5.22); RDW 12.8 % (11.7-14.6); RDW-SD 44.5 fL; WBC 6.54 10^3/uL (4.4-10.8)
[2020-05-06] MEDS: Ondansetron 4 MG/2 ML VIAL IVP (13:20)
[2020-05-06 13:22] LABS: ALT 185 U/L (14-59); AST 41 U/L (15-37); Albumin 3.6 g/dL (3.4-5.0); Alkaline Phosphatase 110 U/L (46-116); Anion Gap 9.3 mmol/L (3-11); BUN 14 mg/dL (7-18); Bilirubin, Total 0.8 mg/dL (0.2-1.0); CO2 26.7 mmol/L (21.0-32.0); Calcium 8.4 mg/dL (8.5-10.1); Chloride 102 mmol/L (98-107); Glucose 97 mg/dL (74-106); Magnesium 2.4 mg/dL (1.8-2.4); Potassium 3.5 mmol/L (3.5-5.1); Sodium 138 mmol/L (136-145); Total Protein 6.7 g/dL (6.4-8.2); Troponin I < 0.05 ng/mL (<0.06)
[2020-05-08 03:32] LABS: Patient Race White; SARS-CoV-2 RNA Undetected (Undetected); SARS-CoV-2 Specimen Source Nasopharynx
== END 2020-05-06 15:45 | disposition home or self-care (01) ==
PROVIDERS: Emergency Provider Registered Nurse Emergency; PCP Physician Assistant Medical
DX: R11.2 Nausea with vomiting, unspecified (principal); R19.7 Diarrhea, unspecified; T80.212A Local infection due to central venous catheter, initial encounter; Z95.828 Presence of other vascular implants and grafts; Z03.818 Encounter for observation for suspected exposure to other biological agents ruled out; C90.00 Multiple myeloma not having achieved remission
CPT/HCPCS: 36415; 80053; 93005; 96361; 96374; 99284; U0003; 83735; 84484; 85025; 93010; J2405

== ENCOUNTER 2020-05-06 14:37 | Outpatient (CLI) | payer BC, SELFPAY ==
[2020-05-07 10:20] LABS: IgA 47 mg/dL (85-499); IgG 454 mg/dL (610-1,616); IgM 46 mg/dL (35-242); Kappa Free Light Chain 0.61 mg/dL (0.33-1.94); Lambda Free Light Chain <0.44 mg/dL (0.57-2.63)
== END 2020-05-06 14:57 ==
PROVIDERS: PCP Physician Assistant Medical; Visit Provider Internal Medicine Hematology & Oncology
DX: C90.00 Multiple myeloma not having achieved remission (principal)
CPT/HCPCS: 36415; 82784; 83883

== ENCOUNTER 2020-05-07 10:03 | Outpatient (REF) | payer BC, SELFPAY ==
[2020-05-07 11:51] LABS: C Diff PCR Negative (Negative)
[2020-05-12 11:07] LABS: Misc Referral (VDH) See Comments
== END 2020-05-07 10:23 ==
LOC: LBN 10:03
PROVIDERS: PCP Physician Assistant Medical; Visit Provider Registered Nurse Emergency
DX: R19.7 Diarrhea, unspecified (principal)
CPT/HCPCS: 87493; 83630; 87177

== ENCOUNTER 2020-05-21 02:58 | Outpatient (RCR) | payer BC, SELFPAY ==
[2020-04-30] MEDS: Normal Saline Flush 10 ML SYR IVP (12:37)
[2020-04-30 12:53] LABS: Abs Immature Grans 0.04 10^3/uL (0.0-0.06); Absolute Basophil Count 0.01 10^3/uL (0.0-0.2); Absolute Eosinophil Count 0.02 10^3/uL (0.0-0.7); Absolute Lymphocyte Count 0.36 10^3/uL (1.2-3.4); Absolute Monocyte Count 0.08 10^3/uL (0.1-0.8); Absolute Neutrophil Count 7.74 10^3/uL (1.2-6.7); Basophils % 0.1; Eosinophils % 0.2; Immature Grans % 0.5; Lymphocytes % 4.4; MCH 31.9 pg (27.0-33.0); MCHC 33.3 % (32.0-36.0); MCV 95.7 fL (80-95); MPV 11.4 fL (8.0-11.0); Neutrophils % 93.8; Nucleated RBC 0 %; Platelet Count 208 10^3/uL (130-400); RBC 3.76 10^6/uL (3.93-5.22); RDW 12.9 % (11.7-14.6); RDW-SD 45.1 fL; WBC 8.25 10^3/uL (4.4-10.8)
[2020-04-30 13:09] LABS: ALT 135 U/L (14-59); AST 56 U/L (15-37); Albumin 3.7 g/dL (3.4-5.0); Alkaline Phosphatase 98 U/L (46-116); Anion Gap 9.6 mmol/L (3-11); BUN 14 mg/dL (7-18); Bilirubin, Total 0.5 mg/dL (0.2-1.0); CO2 23.4 mmol/L (21.0-32.0); CREATININE 0.79 mg/dL (0.55-1.02); Calcium 8.3 mg/dL (8.5-10.1); Chloride 107 mmol/L (98-107); Glucose 134 mg/dL (74-106); Sodium 140 mmol/L (136-145); Total Protein 6.7 g/dL (6.4-8.2)
[2020-05-14] MEDS: Normal Saline Flush 10 ML SYR IVP (07:52)
[2020-05-14 08:00] LABS: Abs Immature Grans 0.01 10^3/uL (0.0-0.06); Absolute Basophil Count 0.18 10^3/uL (0.0-0.2); Absolute Eosinophil Count 0.06 10^3/uL (0.0-0.7); Absolute Lymphocyte Count 1.57 10^3/uL (1.2-3.4); Absolute Neutrophil Count 1.94 10^3/uL (1.2-6.7); Basophils % 4.3; Eosinophils % 1.4; Immature Grans % 0.2; Lymphocytes % 37.8; MCH 32.6 pg (27.0-33.0); MCHC 33.3 % (32.0-36.0); MCV 97.8 fL (80-95); MPV 10.3 fL (8.0-11.0); Monocytes % 9.6; Neutrophils % 46.7; Nucleated RBC 0 %; Platelet Count 408 10^3/uL (130-400); RBC 3.68 10^6/uL (3.93-5.22); RDW-SD 46.4 fL; WBC 4.15 10^3/uL (4.4-10.8)
[2020-05-14 08:16] LABS: ALT 51 U/L (14-59); AST 15 U/L (15-37); Albumin 3.5 g/dL (3.4-5.0); Alkaline Phosphatase 70 U/L (46-116); Anion Gap 5.4 mmol/L (3-11); BUN 12 mg/dL (7-18); Bilirubin, Total 0.5 mg/dL (0.2-1.0); CO2 26.6 mmol/L (21.0-32.0); CREATININE 0.64 mg/dL (0.55-1.02); Calcium 8.2 mg/dL (8.5-10.1); Chloride 107 mmol/L (98-107); Glucose 101 mg/dL (74-106); Potassium 4.3 mmol/L (3.5-5.1); Sodium 139 mmol/L (136-145); Total Protein 6.1 g/dL (6.4-8.2)
[2020-05-16 07:43] LABS: Viscosity, S 0.8 cpoise (<=1.5)
[2020-05-19 12:43] LABS: Albumin 65.9 % (55.8-66.1); Comment (See Note); Total Protein 5.8 g/dL (6.3-8.2)
[2020-05-19 13:02] LABS: Immunotyping, Serum (See Note)
[2020-05-21] MEDS: Normal Saline Flush 10 ML SYR IVP (11:41)
[2020-05-21 11:42] LABS: Abs Immature Grans 0.07 10^3/uL (0.0-0.06); Absolute Basophil Count 0.03 10^3/uL (0.0-0.2); Absolute Eosinophil Count 0.08 10^3/uL (0.0-0.7); Absolute Lymphocyte Count 0.58 10^3/uL (1.2-3.4); Absolute Neutrophil Count 7.22 10^3/uL (1.2-6.7); Basophils % 0.4; HCT 36.2 % (36.0-46.0); HGB 12.3 g/dL (11.2-15.7); Immature Grans % 0.9; Lymphocytes % 7.2; MCH 32.6 pg (27.0-33.0); MPV 11.3 fL (8.0-11.0); Monocytes % 1.2; Neutrophils % 89.3; Nucleated RBC 0 %; Platelet Count 155 10^3/uL (130-400); RBC 3.77 10^6/uL (3.93-5.22); RDW 12.5 % (11.7-14.6); RDW-SD 43.8 fL; WBC 8.08 10^3/uL (4.4-10.8)
[2020-05-21 11:56] LABS: ALT 48 U/L (14-59); AST 24 U/L (15-37); Albumin 3.6 g/dL (3.4-5.0); Alkaline Phosphatase 66 U/L (46-116); Anion Gap 6.8 mmol/L (3-11); BUN 13 mg/dL (7-18); Bilirubin, Total 0.7 mg/dL (0.2-1.0); CO2 26.2 mmol/L (21.0-32.0); CREATININE 0.65 mg/dL (0.55-1.02); Calcium 8.7 mg/dL (8.5-10.1); Chloride 103 mmol/L (98-107); Glucose 101 mg/dL (74-106); Potassium 3.8 mmol/L (3.5-5.1); Sodium 136 mmol/L (136-145); Total Protein 6.5 g/dL (6.4-8.2)
== END 2020-05-24 23:59 | disposition home or self-care (01) ==
LOC: INF 02:58
PROVIDERS: Internal Medicine Hematology & Oncology; PCP Physician Assistant Medical; Visit Provider Internal Medicine Hematology & Oncology
DX: C90.00 Multiple myeloma not having achieved remission (principal)
CPT/HCPCS: 36415; 36591; 80053; 84165; 85025; 85810; 86320

== ENCOUNTER 2020-06-04 10:12 | Outpatient (CLI) | payer BC, SELFPAY ==
[2020-06-04 11:09] LABS: ALT 111 U/L (14-59); AST 27 U/L (15-37); Albumin 3.8 g/dL (3.4-5.0); Alkaline Phosphatase 79 U/L (46-116); Anion Gap 9.3 mmol/L (3-11); BUN 11 mg/dL (7-18); Bilirubin, Total 0.7 mg/dL (0.2-1.0); CO2 25.7 mmol/L (21.0-32.0); CREATININE 0.81 mg/dL (0.55-1.02); Calcium 8.7 mg/dL (8.5-10.1); Chloride 105 mmol/L (98-107); Glucose 89 mg/dL (74-106); Potassium 3.8 mmol/L (3.5-5.1); Sodium 140 mmol/L (136-145); Total Protein 6.9 g/dL (6.4-8.2)
[2020-06-04 11:18] LABS: Abs Immature Grans 0.05 10^3/uL (0.0-0.06); Absolute Basophil Count 0.04 10^3/uL (0.0-0.2); Absolute Eosinophil Count 0.12 10^3/uL (0.0-0.7); Absolute Lymphocyte Count 0.64 10^3/uL (1.2-3.4); Absolute Monocyte Count 0.16 10^3/uL (0.1-0.8); Absolute Neutrophil Count 4.43 10^3/uL (1.2-6.7); Basophils % 0.7; Eosinophils % 2.2; HCT 38.5 % (36.0-46.0); HGB 13.1 g/dL (11.2-15.7); Immature Grans % 0.9; Lymphocytes % 11.8; MCH 32.5 pg (27.0-33.0); MCV 95.5 fL (80-95); MPV 11.3 fL (8.0-11.0); Monocytes % 2.9; Neutrophils % 81.5; Nucleated RBC 0 %; Platelet Count 229 10^3/uL (130-400); RBC 4.03 10^6/uL (3.93-5.22); RDW 12.4 % (11.7-14.6); WBC 5.44 10^3/uL (4.4-10.8)
[2020-06-13 17:36] LABS: IgA 34 mg/dL (61-356); IgG 399 mg/dL (767-1590)
[2020-06-13 17:37] LABS: Albumin 3.4 g/dL (3.4-4.7); IgM 33 mg/dL (37-286); Total Protein 6.1 g/dL (6.3-7.9)
[2020-06-13 17:40] LABS: Comment See Comments
== END 2020-06-04 10:32 ==
PROVIDERS: PCP Physician Assistant Medical; Visit Provider Internal Medicine Hematology & Oncology
DX: C90.00 Multiple myeloma not having achieved remission (principal)
CPT/HCPCS: 36415; 80053; 82784; 83883; 84165; 85025; 85810

== ENCOUNTER 2020-06-06 04:20 | Outpatient (CLI) | payer BC, SELFPAY ==
[2020-06-10 15:21] LABS: Patient Race White; SARS-CoV-2 RNA Undetected (Undetected); SARS-CoV-2 Specimen Source Nasal
== END 2020-06-06 04:40 ==
PROVIDERS: PCP Physician Assistant Medical; Visit Provider Physician Assistant Medical
DX: Z11.59 Encounter for screening for other viral diseases (principal)
CPT/HCPCS: U0003

== ENCOUNTER 2020-07-09 11:17 | Outpatient (REF) | payer BC, SELFPAY ==
[2020-07-09 11:30] LABS: Abs Immature Grans 0.03 10^3/uL (0.0-0.06); Absolute Basophil Count 0.13 10^3/uL (0.0-0.2); Absolute Eosinophil Count 0.04 10^3/uL (0.0-0.7); Absolute Lymphocyte Count 0.63 10^3/uL (1.2-3.4); Absolute Monocyte Count 0.13 10^3/uL (0.1-0.8); Absolute Neutrophil Count 5.72 10^3/uL (1.2-6.7); Basophils % 1.9; Eosinophils % 0.6; HCT 34.5 % (36.0-46.0); HGB 11.1 g/dL (11.2-15.7); Immature Grans % 0.4; Lymphocytes % 9.4; MCH 32.6 pg (27.0-33.0); MCHC 32.2 % (32.0-36.0); MCV 101.2 fL (80-95); MPV 10.2 fL (8.0-11.0); Monocytes % 1.9; Neutrophils % 85.8; Nucleated RBC 0 %; Platelet Count 280 10^3/uL (130-400); RBC 3.41 10^6/uL (3.93-5.22); RDW 13.3 % (11.7-14.6); RDW-SD 49.9 fL; WBC 6.68 10^3/uL (4.4-10.8)
== END 2020-07-09 11:37 ==
LOC: LBN 11:17
PROVIDERS: PCP Physician Assistant Medical; Visit Provider Internal Medicine Hematology & Oncology
DX: C90.00 Multiple myeloma not having achieved remission (principal)
CPT/HCPCS: 85025

== ENCOUNTER 2020-07-24 02:28 | Outpatient (RCR) | payer BC, SELFPAY ==
[2020-07-02] MEDS: Normal Saline Flush 10 ML SYR IVP (07:39)
[2020-07-02] MEDS: Heparin 500 UNITS/5 ML SYRINGE IV (07:40)
[2020-07-02 07:49] LABS: Abs Immature Grans 0.03 10^3/uL (0.0-0.06); Absolute Basophil Count 0.04 10^3/uL (0.0-0.2); Absolute Eosinophil Count 0.41 10^3/uL (0.0-0.7); Absolute Lymphocyte Count 1.07 10^3/uL (1.2-3.4); Absolute Monocyte Count 0.55 10^3/uL (0.1-0.8); Absolute Neutrophil Count 2.06 10^3/uL (1.2-6.7); Eosinophils % 9.9; HGB 10.8 g/dL (11.2-15.7); Immature Grans % 0.7; Lymphocytes % 25.7; MCH 32.5 pg (27.0-33.0); MCHC 32.7 % (32.0-36.0); MCV 99.4 fL (80-95); Monocytes % 13.2; Neutrophils % 49.5; Nucleated RBC 0 %; Platelet Count 147 10^3/uL (130-400); RBC 3.32 10^6/uL (3.93-5.22); RDW 13.1 % (11.7-14.6); RDW-SD 46.5 fL; WBC 4.16 10^3/uL (4.4-10.8)
[2020-07-02 08:02] LABS: ALT 56 U/L (14-59); AST 16 U/L (15-37); Albumin 3.2 g/dL (3.4-5.0); Alkaline Phosphatase 67 U/L (46-116); Anion Gap 6.8 mmol/L (3-11); BUN 10 mg/dL (7-18); Bilirubin, Total 0.9 mg/dL (0.2-1.0); CO2 26.2 mmol/L (21.0-32.0); CREATININE 0.75 mg/dL (0.55-1.02); Calcium 7.7 mg/dL (8.5-10.1); Chloride 105 mmol/L (98-107); Glucose 93 mg/dL (74-106); Sodium 138 mmol/L (136-145); Total Protein 5.8 g/dL (6.4-8.2)
[2020-07-03 11:04] LABS: IgA 31 mg/dL (85-499); IgG 257 mg/dL (610-1,616); IgM 22 mg/dL (35-242); Kappa Free Light Chain 0.59 mg/dL (0.33-1.94); Lambda Free Light Chain <0.44 mg/dL (0.57-2.63)
[2020-07-03 13:21] LABS: Albumin 64.2 % (55.8-66.1); Comment (See Note); Total Protein 5.4 g/dL (6.3-8.2)
[2020-07-03 21:57] LABS: Viscosity, S 0.9 cpoise (<=1.5)
[2020-07-04 14:03] LABS: Immunotyping, Serum (See Note)
[2020-07-24] MEDS: Normal Saline Flush 10 ML SYR IVP (09:12)
[2020-07-24] MEDS: Heparin 500 UNITS/5 ML SYRINGE IV (09:12)
[2020-07-24 09:27] LABS: Abs Immature Grans 0.04 10^3/uL (0.0-0.06); Absolute Basophil Count 0.11 10^3/uL (0.0-0.2); Absolute Eosinophil Count 0.02 10^3/uL (0.0-0.7); Absolute Lymphocyte Count 1.46 10^3/uL (1.2-3.4); Absolute Monocyte Count 1.13 10^3/uL (0.1-0.8); Absolute Neutrophil Count 6.67 10^3/uL (1.2-6.7); Basophils % 1.2; Eosinophils % 0.2; HCT 32.1 % (36.0-46.0); HGB 10.7 g/dL (11.2-15.7); Immature Grans % 0.4; Lymphocytes % 15.5; MCH 33.9 pg (27.0-33.0); MCHC 33.3 % (32.0-36.0); MCV 101.6 fL (80-95); MPV 10.1 fL (8.0-11.0); Neutrophils % 70.7; Nucleated RBC 0 %; Platelet Count 309 10^3/uL (130-400); RBC 3.16 10^6/uL (3.93-5.22); RDW 13.5 % (11.7-14.6); RDW-SD 50.9 fL; WBC 9.43 10^3/uL (4.4-10.8)
[2020-07-24 09:42] LABS: ALT 39 U/L (14-59); AST 20 U/L (15-37); Albumin 3.5 g/dL (3.4-5.0); Alkaline Phosphatase 53 U/L (46-116); Anion Gap 6.5 mmol/L (3-11); BUN 17 mg/dL (7-18); Bilirubin, Total 0.7 mg/dL (0.2-1.0); CO2 26.5 mmol/L (21.0-32.0); CREATININE 0.73 mg/dL (0.55-1.02); Calcium 8.5 mg/dL (8.5-10.1); Chloride 106 mmol/L (98-107); Glucose 81 mg/dL (74-106); Potassium 3.9 mmol/L (3.5-5.1); Sodium 139 mmol/L (136-145); Total Protein 6.1 g/dL (6.4-8.2)
[2020-07-25 09:19] LABS: IgA 25 mg/dL (85-499); IgG 252 mg/dL (610-1,616); IgM 17 mg/dL (35-242); Lambda Free Light Chain <0.44 mg/dL (0.57-2.63)
[2020-07-28 13:16] LABS: Albumin 67.1 % (55.8-66.1); Total Protein 5.9 g/dL (6.3-8.2)
== END 2020-07-24 23:59 | disposition home or self-care (01) ==
LOC: INF 02:28
PROVIDERS: PCP Physician Assistant Medical; Visit Provider Internal Medicine Hematology & Oncology
DX: C90.00 Multiple myeloma not having achieved remission (principal); Z45.2 Encounter for adjustment and management of vascular access device
CPT/HCPCS: 36591; 80053; 82784; 83883; 84165; 85025; 85810; 86320

== ENCOUNTER 2020-07-28 02:05 | Outpatient (CLI) | payer BC, SELFPAY ==
--- NOTE | 2020-07-28 | DI.MAMMO_ITS ---
EXAM: MG MAMMO SCREENING CLINICAL HISTORY: SCREENING,Z12.31. TECHNIQUE: Bilateral full field digital CC and MLO mammographic images were obtained with 3D tomosyn thesis and utilizing computer aided detection (CAD). COMPARISON: None. FINDINGS: There are no spiculated masses nor malignant appearing microcalcification groups. There is no signif icant architectural distortion nor skin thickening-retraction. IMPRESSION: No radiographic evidence of malignancy. BI-RADS Category 1 - Negative Breast Density - Category C - Heterogeneously dense Breast density Category C or D implies that the patient has dense breast tissue. Dense breast tissue can make it harder to find cancer on a mammogram. Dense breast tissue is also associated with an incr eased risk of breast cancer. This information about the result of the mammogram report was provided to the patient to raise their awareness. Use this report when you speak with the patient about their risks for breast cancer, which includes their family history. At that time, you may recommend additional screening tests (Ultrasoun d or MRI) as these tests may add significant information. A negative radiographic report should not delay biopsy if a dominant or clinically suspicious mass is present. Up to ten percent of cancers are not identified on mammography. A negative report may reinforce clinical impression. Adenosis and dense breasts may obscure an underlying neoplasm. False positive reports average 6 to 10%. Patient will receive a letter notifying them of these results.
== END 2020-07-28 02:25 ==
PROVIDERS: PCP Physician Assistant Medical; Visit Provider Physician Assistant Medical
DX: Z12.31 Encounter for screening mammogram for malignant neoplasm of breast (principal)
CPT/HCPCS: 77063; 77067

== ENCOUNTER 2020-08-22 04:51 | Outpatient (RCR) | payer BC, SELFPAY ==
[2020-08-22] MEDS: Heparin 500 UNITS/5 ML SYRINGE IV (10:07)
[2020-08-22] MEDS: Normal Saline Flush 10 ML SYR IVP (10:07)
[2020-08-22 10:10] LABS: Abs Immature Grans 0.06 10^3/uL (0.0-0.06); Absolute Basophil Count 0.07 10^3/uL (0.0-0.2); Absolute Eosinophil Count 0.02 10^3/uL (0.0-0.7); Absolute Lymphocyte Count 2.06 10^3/uL (1.2-3.4); Absolute Monocyte Count 0.94 10^3/uL (0.1-0.8); Absolute Neutrophil Count 4.02 10^3/uL (1.2-6.7); Eosinophils % 0.3; HCT 33.3 % (36.0-46.0); HGB 11.2 g/dL (11.2-15.7); Immature Grans % 0.8; Lymphocytes % 28.7; MCH 34.3 pg (27.0-33.0); MCHC 33.6 % (32.0-36.0); MCV 101.8 fL (80-95); MPV 10.5 fL (8.0-11.0); Monocytes % 13.1; Neutrophils % 56.1; Nucleated RBC 0 %; Platelet Count 267 10^3/uL (130-400); RBC 3.27 10^6/uL (3.93-5.22); RDW 12.9 % (11.7-14.6); RDW-SD 47.8 fL; WBC 7.17 10^3/uL (4.4-10.8)
[2020-08-22 10:27] LABS: ALT 54 U/L (14-59); AST 23 U/L (15-37); Albumin 3.7 g/dL (3.4-5.0); Alkaline Phosphatase 65 U/L (46-116); Anion Gap 6.2 mmol/L (3-11); BUN 21 mg/dL (7-18); Bilirubin, Total 0.5 mg/dL (0.2-1.0); CO2 27.8 mmol/L (21.0-32.0); CREATININE 0.9 mg/dL (0.55-1.02); Calcium 8.9 mg/dL (8.5-10.1); Chloride 104 mmol/L (98-107); Glucose 88 mg/dL (74-106); Potassium 3.6 mmol/L (3.5-5.1); Sodium 138 mmol/L (136-145); Total Protein 6.4 g/dL (6.4-8.2)
[2020-08-25 10:47] LABS: Kappa Free Light Chain 0.43 mg/dL (0.33-1.94); Lambda Free Light Chain <0.44 mg/dL (0.57-2.63)
[2020-08-25 13:27] LABS: Albumin 66.2 % (55.8-66.1); Total Protein 6.1 g/dL (6.3-8.2)
== END 2020-08-24 23:59 | disposition home or self-care (01) ==
LOC: INF 04:51
PROVIDERS: PCP Physician Assistant Medical; Visit Provider Internal Medicine Hematology & Oncology
DX: C90.00 Multiple myeloma not having achieved remission (principal)
CPT/HCPCS: 36591; 80053; 83883; 84165; 85025

== ENCOUNTER 2020-11-13 03:16 | Outpatient (RCR) | payer BC, SELFPAY ==
[2020-11-13] MEDS: Normal Saline Flush 10 ML SYR IVP (10:10)
[2020-11-13] MEDS: Heparin 500 UNITS/5 ML SYRINGE IV (10:10)
[2020-11-13 10:18] LABS: Abs Immature Grans 0.01 10^3/uL (0.0-0.06); Absolute Basophil Count 0.19 10^3/uL (0.0-0.2); Absolute Eosinophil Count 0.54 10^3/uL (0.0-0.7); Absolute Lymphocyte Count 1.24 10^3/uL (1.2-3.4); Absolute Monocyte Count 0.45 10^3/uL (0.1-0.8); Absolute Neutrophil Count 2.96 10^3/uL (1.2-6.7); Basophils % 3.5; HCT 39.8 % (36.0-46.0); HGB 13.3 g/dL (11.2-15.7); Immature Grans % 0.2; MCHC 33.4 % (32.0-36.0); MCV 95.7 fL (80-95); MPV 11.1 fL (8.0-11.0); Monocytes % 8.3; Nucleated RBC 0 %; Platelet Count 192 10^3/uL (130-400); RBC 4.16 10^6/uL (3.93-5.22); RDW 11.1 % (11.7-14.6); RDW-SD 39.2 fL; WBC 5.39 10^3/uL (4.4-10.8)
[2020-11-13 11:02] LABS: ALT 50 U/L (14-59); AST 40 U/L (15-37); Albumin 3.6 g/dL (3.4-5.0); Alkaline Phosphatase 72 U/L (46-116); Anion Gap 9.6 mmol/L (3-11); BUN 12 mg/dL (7-18); Bilirubin, Total 0.5 mg/dL (0.2-1.0); CO2 26.4 mmol/L (21.0-32.0); CREATININE 0.9 mg/dL (0.55-1.02); Calcium 8.6 mg/dL (8.5-10.1); Chloride 107 mmol/L (98-107); Glucose 105 mg/dL (74-106); Potassium 3.9 mmol/L (3.5-5.1); Sodium 143 mmol/L (136-145); Total Protein 6.4 g/dL (6.4-8.2)
[2020-11-14 11:00] LABS: IgA 50 mg/dL (85-499); IgG 366 mg/dL (610-1,616); IgM 28 mg/dL (35-242); Kappa Free Light Chain 0.79 mg/dL (0.33-1.94); Lambda Free Light Chain 0.63 mg/dL (0.57-2.63)
[2020-11-14 11:29] LABS: Albumin 68.3 % (55.8-66.1)
== END 2020-11-21 23:59 | disposition home or self-care (01) ==
LOC: INF 03:16
PROVIDERS: PCP Physician Assistant Medical; Visit Provider Internal Medicine Hematology & Oncology
DX: C90.00 Multiple myeloma not having achieved remission (principal); Z45.2 Encounter for adjustment and management of vascular access device
CPT/HCPCS: 36591; 80053; 82784; 83883; 84165; 85025

== ENCOUNTER 2021-01-15 03:27 | Outpatient (RCR) | payer BC, SELFPAY ==
[2021-01-15] MEDS: Heparin 500 UNITS/5 ML SYRINGE IV (10:20)
[2021-01-15] MEDS: Normal Saline Flush 10 ML SYR IVP (10:20)
[2021-01-15 10:35] LABS: Abs Immature Grans 0.04 10^3/uL (0.0-0.06); Absolute Basophil Count 0.05 10^3/uL (0.0-0.2); Absolute Eosinophil Count 0.17 10^3/uL (0.0-0.7); Absolute Lymphocyte Count 1.37 10^3/uL (1.2-3.4); Absolute Monocyte Count 0.57 10^3/uL (0.1-0.8); Absolute Neutrophil Count 2.02 10^3/uL (1.2-6.7); Basophils % 1.2; HCT 36.9 % (36.0-46.0); HGB 12.1 g/dL (11.2-15.7); Immature Grans % 0.9; Lymphocytes % 32.5; MCH 30.6 pg (27.0-33.0); MCHC 32.8 % (32.0-36.0); MCV 93.4 fL (80-95); MPV 11.3 fL (8.0-11.0); Monocytes % 13.5; Neutrophils % 47.9; Nucleated RBC 0 %; Platelet Count 183 10^3/uL (130-400); RBC 3.95 10^6/uL (3.93-5.22); RDW-SD 47.6 fL; WBC 4.22 10^3/uL (4.4-10.8)
[2021-01-15 10:43] LABS: ALT 64 U/L (14-59); AST 32 U/L (15-37); Albumin 3.4 g/dL (3.4-5.0); Alkaline Phosphatase 90 U/L (46-116); Anion Gap 7.8 mmol/L (3-11); BUN 12 mg/dL (7-18); Bilirubin, Total 0.6 mg/dL (0.2-1.0); CO2 26.2 mmol/L (21.0-32.0); CREATININE 0.8 mg/dL (0.55-1.02); Calcium 8.8 mg/dL (8.5-10.1); Chloride 106 mmol/L (98-107); Glucose 95 mg/dL (74-106); Potassium 4.8 mmol/L (3.5-5.1); Sodium 140 mmol/L (136-145); Total Protein 6.3 g/dL (6.4-8.2)
[2021-01-16 10:35] LABS: IgA 37 mg/dL (85-499); IgG 390 mg/dL (610-1,616); IgM 35 mg/dL (35-242); Kappa Free Light Chain 0.51 mg/dL (0.33-1.94); Lambda Free Light Chain <0.44 mg/dL (0.57-2.63)
[2021-01-16 12:38] LABS: Albumin 65.7 % (55.8-66.1); Total Protein 5.7 g/dL (6.3-8.2)
[2021-01-19 14:25] LABS: IgA 39 mg/dL (85-499); Interpretation (See Note); Tissue Transglutaminase IgA <1.2 U/mL (<4.0)
== END 2021-01-21 23:59 | disposition home or self-care (01) ==
LOC: INF 03:27
PROVIDERS: PCP Physician Assistant Medical; Visit Provider Internal Medicine Hematology & Oncology
DX: C90.00 Multiple myeloma not having achieved remission (principal); Z45.2 Encounter for adjustment and management of vascular access device; R19.7 Diarrhea, unspecified
CPT/HCPCS: 36591; 80053; 82784; 83516; 83883; 84165; 85025

== ENCOUNTER 2021-02-12 03:03 | Outpatient (RCR) | payer BC, SELFPAY ==
[2021-02-12] MEDS: Normal Saline Flush 10 ML SYR IVP (10:19)
[2021-02-12] MEDS: Heparin 500 UNITS/5 ML SYRINGE IV (10:19)
[2021-02-12 10:27] LABS: ALT 71 U/L (14-59); AST 23 U/L (15-37); Abs Immature Grans 0.02 10^3/uL (0.0-0.06); Absolute Basophil Count 0.08 10^3/uL (0.0-0.2); Absolute Eosinophil Count 0.31 10^3/uL (0.0-0.7); Absolute Lymphocyte Count 1.12 10^3/uL (1.2-3.4); Absolute Monocyte Count 0.65 10^3/uL (0.1-0.8); Absolute Neutrophil Count 2.67 10^3/uL (1.2-6.7); Albumin 3.6 g/dL (3.4-5.0); Alkaline Phosphatase 106 U/L (46-116); Anion Gap 8.5 mmol/L (3-11); BUN 12 mg/dL (7-18); Basophils % 1.6; Bilirubin, Total 0.8 mg/dL (0.2-1.0); CO2 26.5 mmol/L (21.0-32.0); CREATININE 0.8 mg/dL (0.55-1.02); Calcium 8.6 mg/dL (8.5-10.1); Chloride 108 mmol/L (98-107); Eosinophils % 6.4; Glucose 99 mg/dL (74-106); HCT 36.5 % (36.0-46.0); HGB 12.1 g/dL (11.2-15.7); Immature Grans % 0.4; Lymphocytes % 23.1; MCH 31.6 pg (27.0-33.0); MCHC 33.2 % (32.0-36.0); MCV 95.3 fL (80-95); MPV 11.3 fL (8.0-11.0); Monocytes % 13.4; Neutrophils % 55.1; Nucleated RBC 0 %; Platelet Count 193 10^3/uL (130-400); Potassium 4.2 mmol/L (3.5-5.1); RBC 3.83 10^6/uL (3.93-5.22); RDW 15.9 % (11.7-14.6); RDW-SD 54.7 fL; Sodium 143 mmol/L (136-145); Total Protein 6.4 g/dL (6.4-8.2); WBC 4.85 10^3/uL (4.4-10.8)
[2021-02-13 09:22] LABS: IgA 36 mg/dL (85-499); IgG 382 mg/dL (610-1,616); IgM 20 mg/dL (35-242); Lambda Free Light Chain <0.44 mg/dL (0.57-2.63)
[2021-02-13 14:16] LABS: Albumin 65.9 % (55.8-66.1); Total Protein 6.2 g/dL (6.3-8.2)
== END 2021-02-21 23:59 | disposition home or self-care (01) ==
LOC: INF 03:03
PROVIDERS: PCP Physician Assistant Medical; Visit Provider Internal Medicine Hematology & Oncology
DX: C90.00 Multiple myeloma not having achieved remission (principal); Z45.2 Encounter for adjustment and management of vascular access device
CPT/HCPCS: 36591; 80053; 82784; 83883; 84165; 85025

== ENCOUNTER 2021-04-10 04:18 | Outpatient (RCR) | payer MEDICARE, BC, SELFPAY ==
--- OUTSIDE RECORDS SUMMARY | 2021-03-26 10:01 | XMS_ITS | Continuity of Care Document ---
:1955 Author Organization [facility] Address [address] [place] [address]- Care Team Providers Name Role Phone Non-Staff, Physician Primary Care Physician Unavailable Encounter [facility] [id number] Date(s): 10/22/20 - 10/22/[address] [place], [place] [address] Discharge Disposition: Home Attending Physician: MAKI BLACK Admitting Physician: MAKI BLACK Results Most recent to oldest [Reference Range]: 1 Creatinine 0.7 mg/dL (10/22/20 12:00 PM) Vital Signs Most recent to oldest [Reference Range]: 1 Temperature Temporal [36.3-37.8 DegC] 36.7 DegC (10/22/20 2:17 PM) Peripheral Pulse Rate [60-100 bpm] 57 bpm *LOW* (10/22/20 2:17 PM) Respiratory Rate [14-20 br/min] 18 br/min (10/22/20 2:17 PM) Blood Pressure [90-140/60-90 mmHg] 114/62 mmHg (10/22/20 2:17 PM) SpO2 [92-100 %] 100 % (10/22/20 2:17 PM) Height/Length Dosing 172.72 cm (10/22/20 12:00 PM) Weight Dosing 64.545 kg (10/22/20 12:00 PM)
[2021-03-26 10:21] LABS: Abs Immature Grans 0.03 10^3/uL (0.0-0.06); HCT 28.8 % (36.0-46.0); HGB 9.3 g/dL (11.2-15.7); MCH 31.2 pg (27.0-33.0); MCHC 32.3 % (32.0-36.0); MCV 96.6 fL (80-95); Nucleated RBC 0 %; Platelet Count 106 10^3/uL (130-400); RBC 2.98 10^6/uL (3.93-5.22); RDW 13.7 % (11.7-14.6); RDW-SD 47.9 fL; WBC 4.57 10^3/uL (4.4-10.8)
[2021-03-26 10:39] LABS: ALT 42 U/L (14-59); AST 33 U/L (15-37); Albumin 2.5 g/dL (3.4-5.0); Alkaline Phosphatase 227 U/L (46-116); Anion Gap 9.8 mmol/L (3-11); BUN 9 mg/dL (7-18); Bilirubin, Total 0.5 mg/dL (0.2-1.0); CO2 27.2 mmol/L (21.0-32.0); CREATININE 0.9 mg/dL (0.55-1.02); Calcium 8.5 mg/dL (8.5-10.1); Chloride 107 mmol/L (98-107); Glucose 128 mg/dL (74-106); Potassium 3.4 mmol/L (3.5-5.1); Sodium 144 mmol/L (136-145)
[2021-03-26 10:41] LABS: Absolute Lymphocyte Count 1.28 10^3/uL (1.2-3.4); Absolute Monocyte Count 0.32 10^3/uL (0.1-0.8); Absolute Neutrophil Count 2.97 10^3/uL (1.2-6.7); Atypical Lymphocytes % 8; Bands % 0
[2021-03-26 10:42] LABS: Diff Comment Manual Differential; Polychromasia Present
[2021-03-26] MEDS: Heparin 500 UNITS/5 ML SYRINGE (12:16)
[2021-03-26] MEDS: Normal Saline Flush 10 ML SYR IVP (12:17)
[2021-03-27 09:08] LABS: IgA 160 mg/dL (85-499); IgG 648 mg/dL (610-1,616); IgM 248 mg/dL (35-242); Kappa Free Light Chain 2.02 mg/dL (0.33-1.94); Lambda Free Light Chain 3.03 mg/dL (0.57-2.63)
[2021-04-01 15:36] LABS: Albumin 50.4 % (55.8-66.1); Comment (See Note); Total Protein 5.3 g/dL (6.3-8.2)
[2021-04-10] MEDS: Normal Saline Flush 10 ML SYR IVP (10:13)
[2021-04-10] MEDS: Heparin 500 UNITS/5 ML SYRINGE IV (10:14)
[2021-04-10 10:23] LABS: Abs Immature Grans 0.01 10^3/uL (0.0-0.06); Absolute Basophil Count 0.09 10^3/uL (0.0-0.2); Absolute Eosinophil Count 0.12 10^3/uL (0.0-0.7); Absolute Lymphocyte Count 1.92 10^3/uL (1.2-3.4); Absolute Monocyte Count 0.31 10^3/uL (0.1-0.8); Absolute Neutrophil Count 2.44 10^3/uL (1.2-6.7); Basophils % 1.8; Eosinophils % 2.5; HCT 32.9 % (36.0-46.0); HGB 10.5 g/dL (11.2-15.7); Immature Grans % 0.2; Lymphocytes % 39.3; MCH 31.4 pg (27.0-33.0); MCHC 31.9 % (32.0-36.0); MCV 98.5 fL (80-95); MPV 10.2 fL (8.0-11.0); Monocytes % 6.3; Neutrophils % 49.9; Nucleated RBC 0 %; Platelet Count 241 10^3/uL (130-400); RBC 3.34 10^6/uL (3.93-5.22); RDW 15.2 % (11.7-14.6); RDW-SD 54.1 fL; WBC 4.89 10^3/uL (4.4-10.8)
[2021-04-10 10:48] LABS: ALT 23 U/L (14-59); AST 23 U/L (15-37); Albumin 3.1 g/dL (3.4-5.0); Alkaline Phosphatase 92 U/L (46-116); Anion Gap 4.4 mmol/L (3-11); BUN 13 mg/dL (7-18); Bilirubin, Total 0.5 mg/dL (0.2-1.0); CO2 28.6 mmol/L (21.0-32.0); CREATININE 0.7 mg/dL (0.55-1.02); Calcium 8.4 mg/dL (8.5-10.1); Chloride 108 mmol/L (98-107); Glucose 96 mg/dL (74-106); Potassium 3.9 mmol/L (3.5-5.1); Sodium 141 mmol/L (136-145); Total Protein 6.8 g/dL (6.4-8.2)
[2021-04-13 10:06] LABS: IgA 163 mg/dL (85-499); IgG 784 mg/dL (610-1,616); IgM 166 mg/dL (35-242); Kappa Free Light Chain 1.08 mg/dL (0.33-1.94); Lambda Free Light Chain 1.25 mg/dL (0.57-2.63)
[2021-04-14 15:49] LABS: Albumin 57.6 % (55.8-66.1); Comment (See Note); Total Protein 6.3 g/dL (6.3-8.2)
[2021-04-14 16:53] LABS: Immunotyping, Serum (See Note)
[2021-06-10 11:54] LABS: Immunotyping, Serum (See Note)
== END 2021-04-23 23:59 | disposition home or self-care (01) ==
LOC: INF 04:18
PROVIDERS: PCP Physician Assistant Medical; Visit Provider Internal Medicine Hematology & Oncology
DX: C90.00 Multiple myeloma not having achieved remission (principal); Z45.2 Encounter for adjustment and management of vascular access device
CPT/HCPCS: 36591; 80053; 82784; 83883; 84165; 85025; 86320

== ENCOUNTER 2021-05-07 02:17 | Outpatient (RCR) | payer MEDICARE, BC, SELFPAY ==
[2021-05-07] MEDS: Normal Saline Flush 10 ML SYR IVP (09:22)
[2021-05-07 09:35] LABS: Abs Immature Grans 0.02 10^3/uL (0.0-0.06); Absolute Basophil Count 0.06 10^3/uL (0.0-0.2); Absolute Monocyte Count 0.64 10^3/uL (0.1-0.8); Absolute Neutrophil Count 2.22 10^3/uL (1.2-6.7); Basophils % 1.3; Eosinophils % 6.5; HCT 33.8 % (36.0-46.0); Immature Grans % 0.4; Lymphocytes % 30.2; MCH 31.2 pg (27.0-33.0); MCHC 32.5 % (32.0-36.0); MCV 95.8 fL (80-95); MPV 11.5 fL (8.0-11.0); Monocytes % 13.8; Neutrophils % 47.8; Nucleated RBC 0 %; Platelet Count 192 10^3/uL (130-400); RBC 3.53 10^6/uL (3.93-5.22); RDW 14.8 % (11.7-14.6); RDW-SD 51.4 fL; WBC 4.64 10^3/uL (4.4-10.8)
[2021-05-07 09:48] LABS: ALT 56 U/L (14-59); AST 32 U/L (15-37); Albumin 3.1 g/dL (3.4-5.0); Alkaline Phosphatase 127 U/L (46-116); Anion Gap 7.3 mmol/L (3-11); BUN 13 mg/dL (7-18); Bilirubin, Total 0.4 mg/dL (0.2-1.0); CO2 27.7 mmol/L (21.0-32.0); CREATININE 0.8 mg/dL (0.55-1.02); Calcium 8.4 mg/dL (8.5-10.1); Chloride 107 mmol/L (98-107); Glucose 82 mg/dL (74-106); Potassium 4.1 mmol/L (3.5-5.1); Sodium 142 mmol/L (136-145); Total Protein 6.2 g/dL (6.4-8.2)
[2021-05-08 09:45] LABS: IgA 58 mg/dL (85-499); IgG 511 mg/dL (610-1,616); IgM 61 mg/dL (35-242); Kappa Free Light Chain 0.76 mg/dL (0.33-1.94); Lambda Free Light Chain 0.52 mg/dL (0.57-2.63)
[2021-05-11 15:02] LABS: Albumin 62.7 % (55.8-66.1); Comment (See Note)
[2021-06-12 14:44] LABS: Immunotyping, Serum (See Note)
== END 2021-05-24 23:59 | disposition home or self-care (01) ==
LOC: INF 02:17
PROVIDERS: PCP Physician Assistant Medical; Visit Provider Internal Medicine Hematology & Oncology
DX: C90.00 Multiple myeloma not having achieved remission (principal); Z45.2 Encounter for adjustment and management of vascular access device
CPT/HCPCS: 36591; 80053; 82784; 83883; 84165; 85025; 86320

== ENCOUNTER 2021-06-17 02:13 | Outpatient (RCR) | payer MEDICARE, BC, SELFPAY ==
[2021-06-17] MEDS: Normal Saline Flush 10 ML SYR IVP (09:11)
[2021-06-17] MEDS: Heparin 500 UNITS/5 ML SYRINGE IV (09:11)
[2021-06-17 09:13] LABS: Abs Immature Grans 0.02 10^3/uL (0.0-0.06); Absolute Basophil Count 0.12 10^3/uL (0.0-0.2); Absolute Eosinophil Count 0.23 10^3/uL (0.0-0.7); Absolute Lymphocyte Count 1.33 10^3/uL (1.2-3.4); Absolute Monocyte Count 0.48 10^3/uL (0.1-0.8); Absolute Neutrophil Count 2.65 10^3/uL (1.2-6.7); Basophils % 2.5; Eosinophils % 4.8; HCT 37.2 % (36.0-46.0); HGB 12.2 g/dL (11.2-15.7); Immature Grans % 0.4; Lymphocytes % 27.5; MCH 30.5 pg (27.0-33.0); MCHC 32.8 % (32.0-36.0); MPV 10.5 fL (8.0-11.0); Monocytes % 9.9; Neutrophils % 54.9; Nucleated RBC 0 %; Platelet Count 253 10^3/uL (130-400); RDW 14.4 % (11.7-14.6); RDW-SD 47.8 fL; WBC 4.83 10^3/uL (4.4-10.8)
[2021-06-17 09:29] LABS: ALT 70 U/L (14-59); AST 48 U/L (15-37); Albumin 3.5 g/dL (3.4-5.0); Alkaline Phosphatase 113 U/L (46-116); Anion Gap 8.7 mmol/L (3-11); BUN 12 mg/dL (7-18); Bilirubin, Total 0.7 mg/dL (0.2-1.0); CO2 28.3 mmol/L (21.0-32.0); CREATININE 0.8 mg/dL (0.55-1.02); Calcium 8.7 mg/dL (8.5-10.1); Chloride 102 mmol/L (98-107); Glucose 120 mg/dL (74-106); Potassium 3.6 mmol/L (3.5-5.1); Sodium 139 mmol/L (136-145); Total Protein 6.7 g/dL (6.4-8.2)
[2021-06-19 10:08] LABS: IgA 87 mg/dL (85-499); IgG 551 mg/dL (610-1,616); IgM 39 mg/dL (35-242); Kappa Free Light Chain 1.34 mg/dL (0.33-1.94); Lambda Free Light Chain 1.14 mg/dL (0.57-2.63)
[2021-06-19 10:52] LABS: Albumin 64.6 % (55.8-66.1); Total Protein 6.4 g/dL (6.3-8.2)
== END 2021-06-23 23:59 | disposition home or self-care (01) ==
LOC: INF 02:13
PROVIDERS: PCP Physician Assistant Medical; Visit Provider Internal Medicine Hematology & Oncology
DX: C90.00 Multiple myeloma not having achieved remission (principal); Z45.2 Encounter for adjustment and management of vascular access device
CPT/HCPCS: 36591; 80053; 82784; 83883; 84165; 85025

== ENCOUNTER 2021-06-23 16:26 | Outpatient (REF) | payer MEDICARE, BC, SELFPAY ==
[2021-06-23 16:56] LABS: C Diff PCR Negative (Negative)
[2021-06-24 10:35] LABS: Campylobacter PCR Negative (Negative); Salmonella PCR Negative (Negative); Shiga Toxin PCR Negative (Negative); Shigella/Enteroinvasive Ecoli Negative (Negative)
[2021-06-25 18:26] LABS: Pancreatic Elastase, F >500 mcg/g
== END 2021-06-23 16:27 | disposition home or self-care (01) ==
LOC: LBN 16:26
PROVIDERS: PCP Physician Assistant Medical; Visit Provider Nurse Practitioner
DX: R63.4 Abnormal weight loss (principal); D64.9 Anemia, unspecified; R74.8 Abnormal levels of other serum enzymes; R19.7 Diarrhea, unspecified; R15.2 Fecal urgency
CPT/HCPCS: 87329; 87493; 87505; 82656

== ENCOUNTER 2021-06-26 11:00 | Outpatient (REF) | payer MEDICARE, BC, SELFPAY | END 2021-06-26 11:01 | disposition home or self-care (01) | LOC: LBN 11:00 | PROVIDERS: PCP Physician Assistant Medical; Visit Provider Nurse Practitioner | DX: R63.4 Abnormal weight loss (principal); D64.9 Anemia, unspecified; R74.8 Abnormal levels of other serum enzymes; R15.2 Fecal urgency | CPT/HCPCS: 87329 ==

== ENCOUNTER 2021-07-16 02:59 | Outpatient (RCR) | payer MEDICARE, BC, SELFPAY ==
[2021-07-16] MEDS: Heparin 500 UNITS/5 ML SYRINGE IV (10:24)
[2021-07-16] MEDS: Normal Saline Flush 10 ML SYR IVP (10:24)
[2021-07-16 10:34] LABS: Abs Immature Grans 0.02 10^3/uL (0.0-0.06); Absolute Eosinophil Count 0.34 10^3/uL (0.0-0.7); Absolute Lymphocyte Count 1.46 10^3/uL (1.2-3.4); Absolute Monocyte Count 0.52 10^3/uL (0.1-0.8); Absolute Neutrophil Count 2.11 10^3/uL (1.2-6.7); Basophils % 2.2; Eosinophils % 7.5; HCT 35.4 % (36.0-46.0); HGB 11.6 g/dL (11.2-15.7); Immature Grans % 0.4; Lymphocytes % 32.1; MCH 31.2 pg (27.0-33.0); MCHC 32.8 % (32.0-36.0); MCV 95.2 fL (80-95); MPV 11.1 fL (8.0-11.0); Monocytes % 11.4; Neutrophils % 46.4; Nucleated RBC 0 %; Platelet Count 197 10^3/uL (130-400); RBC 3.72 10^6/uL (3.93-5.22); RDW 13.1 % (11.7-14.6); RDW-SD 46.1 fL; WBC 4.55 10^3/uL (4.4-10.8)
[2021-07-16 10:50] LABS: ALT 54 U/L (14-59); AST 30 U/L (15-37); Albumin 3.4 g/dL (3.4-5.0); Alkaline Phosphatase 105 U/L (46-116); Anion Gap 7.1 mmol/L (3-11); BUN 14 mg/dL (7-18); Bilirubin, Total 0.8 mg/dL (0.2-1.0); CO2 26.9 mmol/L (21.0-32.0); CREATININE 0.7 mg/dL (0.55-1.02); Calcium 8.4 mg/dL (8.5-10.1); Chloride 107 mmol/L (98-107); Glucose 88 mg/dL (74-106); Potassium 3.9 mmol/L (3.5-5.1); Sodium 141 mmol/L (136-145); Total Protein 6.4 g/dL (6.4-8.2)
[2021-07-17 09:35] LABS: IgA 60 mg/dL (85-499); IgG 465 mg/dL (610-1,616); IgM 28 mg/dL (35-242); Kappa Free Light Chain 0.92 mg/dL (0.33-1.94); Lambda Free Light Chain 0.64 mg/dL (0.57-2.63)
[2021-07-20 11:10] LABS: Albumin 66.9 % (55.8-66.1); Total Protein 6.3 g/dL (6.3-8.2)
== END 2021-07-24 23:59 | disposition home or self-care (01) ==
LOC: INF 02:59
PROVIDERS: PCP Physician Assistant Medical; Visit Provider Internal Medicine Hematology & Oncology
DX: C90.00 Multiple myeloma not having achieved remission (principal); Z45.2 Encounter for adjustment and management of vascular access device
CPT/HCPCS: 36591; 80053; 82784; 83883; 84165; 85025

== ENCOUNTER 2021-08-13 10:00 | Outpatient (RCR) | payer MEDICARE, BC, SELFPAY ==
[2021-08-13] MEDS: Heparin 500 UNITS/5 ML SYRINGE IV (10:05)
[2021-08-13] MEDS: Normal Saline Flush 10 ML SYR IVP (10:05)
[2021-08-13 10:16] LABS: Abs Immature Grans 0.01 10^3/uL (0.0-0.06); Absolute Basophil Count 0.06 10^3/uL (0.0-0.2); Absolute Eosinophil Count 0.28 10^3/uL (0.0-0.7); Absolute Lymphocyte Count 1.35 10^3/uL (1.2-3.4); Absolute Monocyte Count 0.61 10^3/uL (0.1-0.8); Absolute Neutrophil Count 2.09 10^3/uL (1.2-6.7); Basophils % 1.4; Eosinophils % 6.4; HCT 37.9 % (36.0-46.0); HGB 12.4 g/dL (11.2-15.7); Immature Grans % 0.2; Lymphocytes % 30.7; MCH 31.5 pg (27.0-33.0); MCHC 32.7 % (32.0-36.0); MCV 96.2 fL (80-95); MPV 10.7 fL (8.0-11.0); Monocytes % 13.9; Neutrophils % 47.4; Nucleated RBC 0 %; Platelet Count 204 10^3/uL (130-400); RBC 3.94 10^6/uL (3.93-5.22); RDW 12.7 % (11.7-14.6); RDW-SD 45.4 fL
[2021-08-13 10:28] LABS: ALT 54 U/L (14-59); AST 21 U/L (15-37); Albumin 3.5 g/dL (3.4-5.0); Alkaline Phosphatase 81 U/L (46-116); BUN 15 mg/dL (7-18); Bilirubin, Total 0.7 mg/dL (0.2-1.0); CREATININE 0.8 mg/dL (0.55-1.02); Calcium 8.7 mg/dL (8.5-10.1); Chloride 105 mmol/L (98-107); Glucose 84 mg/dL (74-106); Potassium 4.1 mmol/L (3.5-5.1); Sodium 138 mmol/L (136-145); Total Protein 6.7 g/dL (6.4-8.2)
[2021-08-14 11:52] LABS: IgA 56 mg/dL (85-499); IgG 473 mg/dL (610-1,616); IgM 23 mg/dL (35-242); Kappa Free Light Chain 0.85 mg/dL (0.33-1.94); Lambda Free Light Chain 0.44 mg/dL (0.57-2.63)
[2021-08-14 12:47] LABS: Albumin 66.5 % (55.8-66.1); Total Protein 6.3 g/dL (6.3-8.2)
== END 2021-08-24 23:59 | disposition home or self-care (01) ==
LOC: INF 10:00
PROVIDERS: PCP Physician Assistant Medical; Visit Provider Internal Medicine Hematology & Oncology
DX: C90.00 Multiple myeloma not having achieved remission (principal); Z45.2 Encounter for adjustment and management of vascular access device
CPT/HCPCS: 36591; 80053; 82784; 83883; 84165; 85025

== ENCOUNTER 2021-09-09 02:09 | Outpatient (RCR) | payer MEDICARE, BC, SELFPAY ==
[2021-09-09] MEDS: Normal Saline Flush 10 ML SYR IVP (10:11)
[2021-09-09] MEDS: Heparin 500 UNITS/5 ML SYRINGE IV (10:11)
[2021-09-09 10:23] LABS: Abs Immature Grans 0.01 10^3/uL (0.0-0.06); Absolute Basophil Count 0.08 10^3/uL (0.0-0.2); Absolute Eosinophil Count 0.29 10^3/uL (0.0-0.7); Absolute Lymphocyte Count 1.32 10^3/uL (1.2-3.4); Absolute Monocyte Count 0.57 10^3/uL (0.1-0.8); Absolute Neutrophil Count 2.01 10^3/uL (1.2-6.7); Basophils % 1.9; Eosinophils % 6.8; HCT 37.5 % (36.0-46.0); HGB 12.3 g/dL (11.2-15.7); Immature Grans % 0.2; Lymphocytes % 30.8; MCH 31.2 pg (27.0-33.0); MCHC 32.8 % (32.0-36.0); MCV 95.2 fL (80-95); MPV 11.1 fL (8.0-11.0); Monocytes % 13.3; Nucleated RBC 0 %; Platelet Count 193 10^3/uL (130-400); RBC 3.94 10^6/uL (3.93-5.22); RDW 12.6 % (11.7-14.6); RDW-SD 43.7 fL; WBC 4.28 10^3/uL (4.4-10.8)
[2021-09-09 10:47] LABS: ALT 71 U/L (14-59); AST 18 U/L (15-37); Albumin 3.6 g/dL (3.4-5.0); Alkaline Phosphatase 84 U/L (46-116); BUN 14 mg/dL (7-18); Bilirubin, Total 0.7 mg/dL (0.2-1.0); CREATININE 0.8 mg/dL (0.55-1.02); Calcium 8.8 mg/dL (8.5-10.1); Chloride 104 mmol/L (98-107); Glucose 118 mg/dL (74-106); Potassium 4.2 mmol/L (3.5-5.1); Sodium 139 mmol/L (136-145); Total Protein 6.5 g/dL (6.4-8.2)
[2021-09-10 10:40] LABS: IgA 47 mg/dL (85-499); IgG 454 mg/dL (610-1,616); IgM 20 mg/dL (35-242); Kappa Free Light Chain 0.75 mg/dL (0.33-1.94); Lambda Free Light Chain <0.44 mg/dL (0.57-2.63)
[2021-09-10 14:46] LABS: Albumin 63.7 % (55.8-66.1); Total Protein 6.1 g/dL (6.3-8.2)
== END 2021-09-21 23:59 | disposition home or self-care (01) ==
LOC: INF 02:09
PROVIDERS: PCP Physician Assistant Medical; Visit Provider Internal Medicine Hematology & Oncology
DX: C90.00 Multiple myeloma not having achieved remission (principal); Z45.2 Encounter for adjustment and management of vascular access device
CPT/HCPCS: 36591; 80053; 82784; 83883; 84165; 85025

== ENCOUNTER 2021-11-11 02:03 | Outpatient (RCR) | payer MEDICARE, BC, SELFPAY ==
[2021-11-11] MEDS: Normal Saline Flush 10 ML SYR IVP (09:57)
[2021-11-11 10:02] LABS: Abs Immature Grans 0.01 10^3/uL (0.0-0.06); Absolute Basophil Count 0.22 10^3/uL (0.0-0.2); Absolute Eosinophil Count 0.11 10^3/uL (0.0-0.7); Absolute Monocyte Count 0.47 10^3/uL (0.1-0.8); Absolute Neutrophil Count 3.07 10^3/uL (1.2-6.7); Basophils % 3.9; HCT 38.8 % (36.0-46.0); HGB 12.8 g/dL (11.2-15.7); Immature Grans % 0.2; Lymphocytes % 30.5; MCH 31.3 pg (27.0-33.0); MCV 94.9 fL (80-95); MPV 10.7 fL (8.0-11.0); Monocytes % 8.4; Platelet Count 249 10^3/uL (130-400); RBC 4.09 10^6/uL (3.93-5.22); RDW 13.1 % (11.7-14.6); RDW-SD 45.1 fL; WBC 5.58 10^3/uL (4.4-10.8)
[2021-11-11 10:13] LABS: ALT 33 U/L (14-59); AST 22 U/L (15-37); Albumin 3.6 g/dL (3.4-5.0); Alkaline Phosphatase 76 U/L (46-116); BUN 10 mg/dL (7-18); Bilirubin, Total 0.7 mg/dL (0.2-1.0); CREATININE 0.9 mg/dL (0.55-1.02); Calcium 8.4 mg/dL (8.5-10.1); Chloride 106 mmol/L (98-107); Glucose 142 mg/dL (74-106); Potassium 3.8 mmol/L (3.5-5.1); Sodium 138 mmol/L (136-145); Total Protein 6.5 g/dL (6.4-8.2)
[2021-11-12 09:28] LABS: IgA 53 mg/dL (85-499); IgG 486 mg/dL (610-1,616); IgM 21 mg/dL (35-242); Kappa Free Light Chain 0.77 mg/dL (0.33-1.94); Lambda Free Light Chain 0.59 mg/dL (0.57-2.63)
[2021-11-12 14:20] LABS: Albumin 65.3 % (55.8-66.1); Total Protein 6.2 g/dL (6.3-8.2)
== END 2021-11-21 23:59 | disposition home or self-care (01) ==
LOC: INF 02:03
PROVIDERS: PCP Physician Assistant Medical; Visit Provider Internal Medicine Hematology & Oncology
DX: C90.00 Multiple myeloma not having achieved remission (principal); Z45.2 Encounter for adjustment and management of vascular access device
CPT/HCPCS: 36591; 80053; 82784; 83883; 84165; 85025

== ENCOUNTER 2022-01-01 01:03 | Outpatient (RCR) | payer MEDICARE, BC, SELFPAY ==
[2022-01-01 11:13] LABS: Abs Immature Grans 0.01 10^3/uL (0.0-0.06); Absolute Basophil Count 0.07 10^3/uL (0.0-0.2); Absolute Eosinophil Count 0.09 10^3/uL (0.0-0.7); Absolute Lymphocyte Count 1.98 10^3/uL (1.2-3.4); Absolute Monocyte Count 0.33 10^3/uL (0.1-0.8); Absolute Neutrophil Count 3.27 10^3/uL (1.2-6.7); Basophils % 1.2; Eosinophils % 1.6; HCT 37.2 % (36.0-46.0); HGB 12.5 g/dL (11.2-15.7); Immature Grans % 0.2; Lymphocytes % 34.4; MCH 31.4 pg (27.0-33.0); MCHC 33.6 % (32.0-36.0); MCV 94 fL (80-95); MPV 10.3 fL (8.0-11.0); Monocytes % 5.7; Neutrophils % 56.9; Platelet Count 231 10^3/uL (130-400); RBC 3.98 10^6/uL (3.93-5.22); RDW-SD 44.8 fL; WBC 5.75 10^3/uL (4.4-10.8)
[2022-01-01] MEDS: Heparin 500 UNITS/5 ML SYRINGE IV (11:15)
[2022-01-01] MEDS: Normal Saline Flush 10 ML SYR IVP (11:16)
[2022-01-01 11:48] LABS: ALT 41 U/L (14-59); AST 27 U/L (15-37); Albumin 3.8 g/dL (3.4-5.0); Alkaline Phosphatase 67 U/L (46-116); Anion Gap 11.1 mmol/L (3-11); BUN 16 mg/dL (7-18); Bilirubin, Total 0.6 mg/dL (0.2-1.0); CO2 24.9 mmol/L (21.0-32.0); CREATININE 0.8 mg/dL (0.55-1.02); Calcium 8.5 mg/dL (8.5-10.1); Chloride 104 mmol/L (98-107); Glucose 96 mg/dL (74-106); Potassium 3.9 mmol/L (3.5-5.1); Sodium 140 mmol/L (136-145); Total Protein 6.7 g/dL (6.4-8.2)
[2022-01-04 09:34] LABS: IgA 66 mg/dL (85-499); IgG 509 mg/dL (610-1,616); IgM 20 mg/dL (35-242); Kappa Free Light Chain 0.63 mg/dL (0.33-1.94); Lambda Free Light Chain <0.44 mg/dL (0.57-2.63)
[2022-01-04 12:40] LABS: Albumin g/dL 4.2 g/dL (3.6-5.2); Total Protein 6.4 g/dL (6.3-8.2)
== END 2022-01-21 23:59 | disposition home or self-care (01) ==
LOC: INF 01:03
PROVIDERS: PCP Physician Assistant Medical; Visit Provider Internal Medicine Hematology & Oncology
DX: C90.00 Multiple myeloma not having achieved remission (principal); Z45.2 Encounter for adjustment and management of vascular access device
CPT/HCPCS: 36591; 80053; 82784; 83883; 84165; 85025

== ENCOUNTER → 2022-01-20 07:57 | Outpatient (CLI) | payer MEDICARE, BC, SELFPAY ==
--- NOTE | 2022-01-20 | DI.RAD_ITS ---
Exam(s) XR THORACIC SPINE COMPLETE EXAM: XR THORACIC SPINE COMPLETE CLINICAL HISTORY: BACK PAIN, MULTIPLE MYELOMA, M54.9,C90.00 TECHNIQUE: COMPARISON: CR XR BONE SURVEY from 09/28/2019 FINDINGS: Three views were obtained. The patient reportedly has a diagnosis of multiple myeloma. The bones ap pear somewhat demineralized. There is a slight biconvex thoracolumbar scoliosis. There is mildly in creased loss of height of T8 vertebral body in comparison with prior examination of September 28, 2019. N ote is also made of a chronic vertebral compression fracture at T12, grossly unchanged from prior exa mination. No new lesions identified. IMPRESSION: Old compression fractures as described above, slight increase in degree of compression of T8 vertebra l body since 2020. RADIATION DOSE DELIVERED: Total DLP
--- NOTE | 2022-01-20 | DI.RAD_ITS ---
Exam(s) XR CERVICAL SPINE COMP 4-5V EXAM: XR CERVICAL SPINE COMP 4-5V CLINICAL HISTORY: PAIN, MULTIPLE MYELOMA, C90.00, TECHNIQUE: COMPARISON: CR XR BONE SURVEY from 09/28/2019 FINDINGS: Five views were obtained. There is a mild cervical kyphosis. There is disc space loss of height at the C5-6 and C6-7 levels. Mild endplate and facet hypertrophic changes are noted throughout the cerv ical region. Neural foramina appear well maintained on oblique views. No gross erosive or destructi ve lesion. IMPRESSION: Moderate degenerative changes of the cervical spine. RADIATION DOSE DELIVERED: Total DLP
--- NOTE | 2022-01-20 | DI.RAD_ITS ---
Exam(s) XR LUMBAR SPINE COMPLETE EXAM: XR LUMBAR SPINE COMPLETE CLINICAL HISTORY: BACK PAIN, M54.9,MULTIPLE MYELOMA,C90.00 TECHNIQUE: COMPARISON: CR XR BONE SURVEY from 09/28/2019 FINDINGS: Five views were obtained. The patient reportedly has a history of multiple myeloma. Bones appear mildly demineralized. Comparison with prior examination of September 2019 again shows verte bral compression fractures of T12 and L4. There appears to be mildly increased degree of compression of the L4 vertebral body. No other new lesion identified. IMPRESSION: Mildly increased degree of vertebral compression of L4 vertebral body since September 2019. no other sign ificant new lesion. RADIATION DOSE DELIVERED: Total DLP
== END ==
PROVIDERS: PCP Physician Assistant Medical; Visit Provider Physician Assistant Medical
DX: M47.812 Spondylosis without myelopathy or radiculopathy, cervical region (principal); C90.00 Multiple myeloma not having achieved remission; M84.48XA Pathological fracture, other site, initial encounter for fracture
CPT/HCPCS: 72050; 72072; 72110

== ENCOUNTER 2022-02-05 12:30 | Outpatient (RCR) | payer MEDICARE, BC, SELFPAY ==
[2022-02-05] MEDS: Normal Saline Flush 10 ML SYR IVP (12:41)
[2022-02-05] MEDS: Heparin 500 UNITS/5 ML SYRINGE (12:41)
[2022-02-05 12:53] LABS: Abs Immature Grans 0.01 10^3/uL (0.0-0.06); Absolute Basophil Count 0.21 10^3/uL (0.0-0.2); Absolute Eosinophil Count 0.05 10^3/uL (0.0-0.7); Absolute Lymphocyte Count 2.28 10^3/uL (1.2-3.4); Absolute Monocyte Count 0.48 10^3/uL (0.1-0.8); Basophils % 3.5; Eosinophils % 0.8; HCT 37.2 % (36.0-46.0); HGB 12.8 g/dL (11.2-15.7); Immature Grans % 0.2; Lymphocytes % 38.4; MCH 32.6 pg (27.0-33.0); MCHC 34.4 % (32.0-36.0); MCV 95 fL (80-95); MPV 10.5 fL (8.0-11.0); Monocytes % 8.1; Platelet Count 293 10^3/uL (130-400); RBC 3.93 10^6/uL (3.93-5.22); RDW 13.6 % (11.7-14.6); WBC 5.93 10^3/uL (4.4-10.8)
[2022-02-05 13:07] LABS: ALT 68 U/L (14-59); AST 33 U/L (15-37); Albumin 3.9 g/dL (3.4-5.0); Alkaline Phosphatase 91 U/L (46-116); Anion Gap 10.4 mmol/L (3-11); BUN 15 mg/dL (7-18); CO2 26.6 mmol/L (21.0-32.0); CREATININE 0.8 mg/dL (0.55-1.02); Calcium 9.3 mg/dL (8.5-10.1); Chloride 103 mmol/L (98-107); Glucose 90 mg/dL (74-106); Potassium 3.5 mmol/L (3.5-5.1); Sodium 140 mmol/L (136-145); Total Protein 6.9 g/dL (6.4-8.2)
[2022-02-08 10:12] LABS: IgA 73 mg/dL (85-499); IgG 531 mg/dL (610-1,616); IgM 22 mg/dL (35-242); Lambda Free Light Chain <0.44 mg/dL (0.57-2.63)
[2022-02-08 13:46] LABS: Albumin g/dL 4.2 g/dL (3.6-5.2); Total Protein 6.4 g/dL (6.3-8.2)
== END 2022-02-21 23:59 | disposition home or self-care (01) ==
LOC: INF 12:30
PROVIDERS: PCP Physician Assistant Medical; Visit Provider Internal Medicine Hematology & Oncology
DX: C90.00 Multiple myeloma not having achieved remission (principal); Z45.2 Encounter for adjustment and management of vascular access device
CPT/HCPCS: 36591; 80053; 82784; 83883; 84165; 85025

== ENCOUNTER 2022-03-10 02:07 | Outpatient (RCR) | payer MEDICARE, BC, SELFPAY ==
[2022-03-10] MEDS: Normal Saline Flush 10 ML SYR IVP (08:34)
[2022-03-10 09:08] LABS: Abs Immature Grans 0.01 10^3/uL (0.0-0.06); Absolute Eosinophil Count 0.08 10^3/uL (0.0-0.7); Absolute Lymphocyte Count 1.75 10^3/uL (1.2-3.4); Absolute Monocyte Count 0.45 10^3/uL (0.1-0.8); Absolute Neutrophil Count 2.59 10^3/uL (1.2-6.7); Basophils % 3.9; Eosinophils % 1.6; HCT 37.2 % (36.0-46.0); HGB 12.5 g/dL (11.2-15.7); Immature Grans % 0.2; Lymphocytes % 34.4; MCH 32.7 pg (27.0-33.0); MCHC 33.6 % (32.0-36.0); MCV 97 fL (80-95); MPV 10.4 fL (8.0-11.0); Monocytes % 8.9; Platelet Count 304 10^3/uL (130-400); RBC 3.82 10^6/uL (3.93-5.22); RDW 12.5 % (11.7-14.6); RDW-SD 44.4 fL; WBC 5.08 10^3/uL (4.4-10.8)
[2022-03-10 09:29] LABS: ALT 38 U/L (14-59); AST 24 U/L (15-37); Albumin 3.5 g/dL (3.4-5.0); Alkaline Phosphatase 74 U/L (46-116); Anion Gap 7.8 mmol/L (3-11); BUN 12 mg/dL (7-18); Bilirubin, Total 0.8 mg/dL (0.2-1.0); CO2 28.2 mmol/L (21.0-32.0); CREATININE 0.9 mg/dL (0.55-1.02); Calcium 8.4 mg/dL (8.5-10.1); Chloride 106 mmol/L (98-107); Glucose 126 mg/dL (74-106); Potassium 3.8 mmol/L (3.5-5.1); Sodium 142 mmol/L (136-145); Total Protein 6.7 g/dL (6.4-8.2)
[2022-03-11 10:11] LABS: IgA 75 mg/dL (85-499); IgG 491 mg/dL (610-1,616); IgM 24 mg/dL (35-242); Kappa Free Light Chain 0.78 mg/dL (0.33-1.94); Lambda Free Light Chain 0.45 mg/dL (0.57-2.63)
[2022-03-11 13:41] LABS: Albumin 63.9 % (55.8-66.1); Total Protein 6.2 g/dL (6.3-8.2)
== END 2022-03-24 23:59 | disposition home or self-care (01) ==
LOC: INF 02:07
PROVIDERS: PCP Physician Assistant Medical; Visit Provider Internal Medicine Hematology & Oncology
DX: C90.00 Multiple myeloma not having achieved remission (principal); Z45.2 Encounter for adjustment and management of vascular access device
CPT/HCPCS: 36591; 80053; 82784; 83883; 84165; 85025

== ENCOUNTER 2022-04-01 02:40 | Outpatient (RCR) | payer MEDICARE, BC, SELFPAY ==
[2022-04-01] MEDS: Heparin 500 UNITS/5 ML SYRINGE IV (09:39)
[2022-04-01] MEDS: Normal Saline Flush 10 ML SYR IVP (09:39)
[2022-04-01 10:01] LABS: Abs Immature Grans 0.02 10^3/uL (0.0-0.06); Absolute Basophil Count 0.08 10^3/uL (0.0-0.2); Absolute Eosinophil Count 0.19 10^3/uL (0.0-0.7); Absolute Lymphocyte Count 1.14 10^3/uL (1.2-3.4); Absolute Monocyte Count 0.83 10^3/uL (0.1-0.8); Absolute Neutrophil Count 1.89 10^3/uL (1.2-6.7); Basophils % 1.9; Eosinophils % 4.6; HCT 35.5 % (36.0-46.0); Immature Grans % 0.5; Lymphocytes % 27.5; MCH 32.9 pg (27.0-33.0); MCHC 33.8 % (32.0-36.0); MCV 97 fL (80-95); MPV 11.3 fL (8.0-11.0); Neutrophils % 45.5; Platelet Count 158 10^3/uL (130-400); RBC 3.65 10^6/uL (3.93-5.22); RDW-SD 42.6 fL; WBC 4.15 10^3/uL (4.4-10.8)
[2022-04-01 10:22] LABS: ALT 34 U/L (14-59); AST 21 U/L (15-37); Albumin 3.3 g/dL (3.4-5.0); Alkaline Phosphatase 68 U/L (46-116); BUN 12 mg/dL (7-18); Bilirubin, Total 0.8 mg/dL (0.2-1.0); CREATININE 0.8 mg/dL (0.55-1.02); Calcium 8.4 mg/dL (8.5-10.1); Chloride 106 mmol/L (98-107); Estimated GFR 80.71 (mL/min/1.73m2); Glucose 89 mg/dL (74-106); Potassium 3.8 mmol/L (3.5-5.1); Sodium 141 mmol/L (136-145); Total Protein 6.5 g/dL (6.4-8.2)
[2022-04-02 09:18] LABS: IgA 63 mg/dL (85-499); IgG 469 mg/dL (610-1,616); IgM 22 mg/dL (35-242); Kappa Free Light Chain 0.97 mg/dL (0.33-1.94)
[2022-04-02 13:12] LABS: Albumin 63.8 % (55.8-66.1); Albumin g/dL 3.8 g/dL (3.6-5.2); Total Protein 5.9 g/dL (6.3-8.2)
== END 2022-04-23 23:59 | disposition home or self-care (01) ==
LOC: INF 02:40
PROVIDERS: PCP Physician Assistant Medical; Visit Provider Internal Medicine Hematology & Oncology
DX: C90.00 Multiple myeloma not having achieved remission (principal); Z45.2 Encounter for adjustment and management of vascular access device
CPT/HCPCS: 36591; 80053; 82784; 83883; 84165; 85025

== ENCOUNTER 2022-04-30 01:05 | Outpatient (RCR) | payer MEDICARE, BC, SELFPAY ==
[2022-04-30] MEDS: Normal Saline Flush 10 ML SYR IVP (08:18)
[2022-04-30] MEDS: Heparin 500 UNITS/5 ML SYRINGE IV (08:18)
[2022-04-30 08:21] LABS: Abs Immature Grans 0.01 10^3/uL (0.0-0.06); Absolute Basophil Count 0.17 10^3/uL (0.0-0.2); Absolute Eosinophil Count 0.17 10^3/uL (0.0-0.7); Absolute Lymphocyte Count 1.75 10^3/uL (1.2-3.4); Absolute Neutrophil Count 2.14 10^3/uL (1.2-6.7); Basophils % 3.7; Eosinophils % 3.7; HCT 38.3 % (36.0-46.0); HGB 13.2 g/dL (11.2-15.7); Immature Grans % 0.2; Lymphocytes % 37.7; MCH 32.4 pg (27.0-33.0); MCHC 34.5 % (32.0-36.0); MCV 94 fL (80-95); MPV 10.7 fL (8.0-11.0); Monocytes % 8.6; Neutrophils % 46.1; Platelet Count 220 10^3/uL (130-400); RBC 4.08 10^6/uL (3.93-5.22); RDW-SD 41.9 fL; WBC 4.64 10^3/uL (4.4-10.8)
[2022-04-30 08:43] LABS: ALT 31 U/L (14-59); AST 23 U/L (15-37); Albumin 3.5 g/dL (3.4-5.0); Alkaline Phosphatase 68 U/L (46-116); Anion Gap 7.3 mmol/L (3-11); BUN 15 mg/dL (7-18); Bilirubin, Total 0.6 mg/dL (0.2-1.0); CO2 27.7 mmol/L (21.0-32.0); CREATININE 0.9 mg/dL (0.55-1.02); Calcium 8.3 mg/dL (8.5-10.1); Chloride 107 mmol/L (98-107); Estimated GFR 70.07 (mL/min/1.73m2); Glucose 130 mg/dL (74-106); Potassium 3.3 mmol/L (3.5-5.1); Sodium 142 mmol/L (136-145); Total Protein 6.5 g/dL (6.4-8.2)
[2022-05-03 09:50] LABS: IgA 90 mg/dL (85-499); IgG 516 mg/dL (610-1,616); IgM 28 mg/dL (35-242); Kappa Free Light Chain 1.03 mg/dL (0.33-1.94); Lambda Free Light Chain 0.83 mg/dL (0.57-2.63)
[2022-05-03 13:12] LABS: Albumin 63.6 % (55.8-66.1); Albumin g/dL 3.8 g/dL (3.6-5.2); Total Protein 5.9 g/dL (6.3-8.2)
== END 2022-05-24 23:59 | disposition home or self-care (01) ==
LOC: INF 01:05
PROVIDERS: PCP Physician Assistant Medical; Visit Provider Internal Medicine Hematology & Oncology
DX: C90.00 Multiple myeloma not having achieved remission (principal); Z45.2 Encounter for adjustment and management of vascular access device
CPT/HCPCS: 36591; 80053; 82784; 83883; 84165; 85025

== ENCOUNTER 2022-05-27 02:45 | Outpatient (RCR) | payer MEDICARE, BC, SELFPAY ==
[2022-05-27] MEDS: Normal Saline Flush 10 ML SYR IVP (08:57)
[2022-05-27 08:58] LABS: Abs Immature Grans 0.02 10^3/uL (0.0-0.06); Absolute Basophil Count 0.08 10^3/uL (0.0-0.2); Absolute Eosinophil Count 0.22 10^3/uL (0.0-0.7); Absolute Monocyte Count 0.53 10^3/uL (0.1-0.8); Absolute Neutrophil Count 2.02 10^3/uL (1.2-6.7); Basophils % 1.8; Eosinophils % 4.9; HGB 11.9 g/dL (11.2-15.7); Immature Grans % 0.4; Lymphocytes % 35.8; MCH 31.3 pg (27.0-33.0); MCHC 33.1 % (32.0-36.0); MCV 95 fL (80-95); Monocytes % 11.9; Neutrophils % 45.2; Platelet Count 162 10^3/uL (130-400); RDW 12.3 % (11.7-14.6); RDW-SD 42.4 fL; WBC 4.47 10^3/uL (4.4-10.8)
[2022-05-27] MEDS: Heparin 500 UNITS/5 ML SYRINGE (08:58)
[2022-05-27 10:00] LABS: ALT 44 U/L (14-59); AST 29 U/L (15-37); Albumin 3.4 g/dL (3.4-5.0); Alkaline Phosphatase 88 U/L (46-116); Anion Gap 7.5 mmol/L (3-11); BUN 13 mg/dL (7-18); Bilirubin, Total 0.8 mg/dL (0.2-1.0); CO2 27.5 mmol/L (21.0-32.0); CREATININE 0.7 mg/dL (0.55-1.02); Calcium 8.2 mg/dL (8.5-10.1); Chloride 107 mmol/L (98-107); Estimated GFR 94.73 (mL/min/1.73m2); Glucose 121 mg/dL (74-106); Potassium 4.1 mmol/L (3.5-5.1); Sodium 142 mmol/L (136-145); Total Protein 6.5 g/dL (6.4-8.2)
[2022-05-28 10:17] LABS: IgA 78 mg/dL (85-499); IgG 500 mg/dL (610-1,616); IgM 25 mg/dL (35-242); Kappa Free Light Chain 1.01 mg/dL (0.33-1.94); Lambda Free Light Chain 0.78 mg/dL (0.57-2.63)
[2022-05-28 13:52] LABS: Albumin 63.8 % (55.8-66.1); Albumin g/dL 3.8 g/dL (3.6-5.2); Total Protein 5.9 g/dL (6.3-8.2)
== END 2022-06-23 23:59 | disposition home or self-care (01) ==
LOC: INF 02:45
PROVIDERS: PCP Physician Assistant Medical; Visit Provider Internal Medicine Hematology & Oncology
DX: C90.00 Multiple myeloma not having achieved remission (principal); Z45.2 Encounter for adjustment and management of vascular access device
CPT/HCPCS: 36591; 80053; 82784; 83883; 84165; 85025

== ENCOUNTER 2022-07-22 01:53 | Outpatient (RCR) | payer MEDICARE, BC, SELFPAY ==
[2022-06-25] MEDS: Normal Saline Flush 10 ML SYR IVP (08:39)
[2022-06-25] MEDS: Heparin 500 UNITS/5 ML SYRINGE IV (08:40)
[2022-06-25 08:49] LABS: Abs Immature Grans 0.01 10^3/uL (0.0-0.06); Absolute Basophil Count 0.11 10^3/uL (0.0-0.2); Absolute Eosinophil Count 0.24 10^3/uL (0.0-0.7); Absolute Lymphocyte Count 1.77 10^3/uL (1.2-3.4); Absolute Monocyte Count 0.61 10^3/uL (0.1-0.8); Absolute Neutrophil Count 2.14 10^3/uL (1.2-6.7); Basophils % 2.3; Eosinophils % 4.9; HCT 37.7 % (36.0-46.0); HGB 12.7 g/dL (11.2-15.7); Immature Grans % 0.2; Lymphocytes % 36.3; MCHC 33.7 % (32.0-36.0); MCV 95 fL (80-95); MPV 10.7 fL (8.0-11.0); Monocytes % 12.5; Neutrophils % 43.8; Platelet Count 190 10^3/uL (130-400); RBC 3.97 10^6/uL (3.93-5.22); RDW-SD 45.8 fL; WBC 4.88 10^3/uL (4.4-10.8)
[2022-06-25 09:07] LABS: ALT 70 U/L (14-59); AST 59 U/L (15-37); Albumin 3.6 g/dL (3.4-5.0); Alkaline Phosphatase 99 U/L (46-116); Anion Gap 6.1 mmol/L (3-11); BUN 10 mg/dL (7-18); Bilirubin, Total 0.8 mg/dL (0.2-1.0); CO2 27.9 mmol/L (21.0-32.0); CREATININE 0.8 mg/dL (0.55-1.02); Calcium 8.2 mg/dL (8.5-10.1); Chloride 104 mmol/L (98-107); Estimated GFR 80.71 (mL/min/1.73m2); Glucose 99 mg/dL (74-106); Sodium 138 mmol/L (136-145); Total Protein 6.6 g/dL (6.4-8.2)
[2022-06-28 11:03] LABS: IgA 70 mg/dL (85-499); IgG 471 mg/dL (610-1616); IgM 26 mg/dL (35-242); Kappa Free Light Chain 1.04 mg/dL (0.33-1.94); Lambda Free Light Chain 0.73 mg/dL (0.57-2.63)
[2022-06-28 14:41] LABS: Albumin 65.2 % (55.8-66.1); Total Protein 6.2 g/dL (6.3-8.2)
[2022-07-22] MEDS: Heparin 500 UNITS/5 ML SYRINGE IV (10:03)
[2022-07-22] MEDS: Normal Saline Flush 10 ML SYR IVP (10:03)
[2022-07-22 10:16] LABS: Abs Immature Grans 0.02 10^3/uL (0.0-0.06); Absolute Basophil Count 0.11 10^3/uL (0.0-0.2); Absolute Eosinophil Count 0.21 10^3/uL (0.0-0.7); Absolute Lymphocyte Count 1.77 10^3/uL (1.2-3.4); Absolute Monocyte Count 0.41 10^3/uL (0.1-0.8); Absolute Neutrophil Count 2.57 10^3/uL (1.2-6.7); Basophils % 2.2; Eosinophils % 4.1; HCT 38.6 % (36.0-46.0); HGB 12.9 g/dL (11.2-15.7); Immature Grans % 0.4; Lymphocytes % 34.8; MCHC 33.4 % (32.0-36.0); MCV 96 fL (80-95); MPV 10.9 fL (8.0-11.0); Monocytes % 8.1; Neutrophils % 50.4; Platelet Count 200 10^3/uL (130-400); RBC 4.03 10^6/uL (3.93-5.22); RDW 12.9 % (11.7-14.6); RDW-SD 46.4 fL; WBC 5.09 10^3/uL (4.4-10.8)
[2022-07-22 10:28] LABS: ALT 51 U/L (14-59); AST 33 U/L (15-37); Albumin 3.6 g/dL (3.4-5.0); Alkaline Phosphatase 91 U/L (46-116); Anion Gap 5.9 mmol/L (3-11); BUN 12 mg/dL (7-18); Bilirubin, Total 0.9 mg/dL (0.2-1.0); CO2 29.1 mmol/L (21.0-32.0); CREATININE 0.8 mg/dL (0.55-1.02); Calcium 8.6 mg/dL (8.5-10.1); Chloride 104 mmol/L (98-107); Estimated GFR 80.71 (mL/min/1.73m2); Glucose 138 mg/dL (74-106); Potassium 3.5 mmol/L (3.5-5.1); Sodium 139 mmol/L (136-145); Total Protein 6.9 g/dL (6.4-8.2)
[2022-07-23 09:14] LABS: IgA 115 mg/dL (85-499); IgG 576 mg/dL (610-1616); IgM 30 mg/dL (35-242); Kappa Free Light Chain 1.48 mg/dL (0.33-1.94); Lambda Free Light Chain 1.02 mg/dL (0.57-2.63)
[2022-07-23 13:13] LABS: Albumin 61.6 % (55.8-66.1); Albumin g/dL 3.8 g/dL (3.6-5.2); Total Protein 6.2 g/dL (6.3-8.2)
== END 2022-07-24 23:59 | disposition home or self-care (01) ==
LOC: INF 01:53
PROVIDERS: PCP Physician Assistant Medical; Visit Provider Internal Medicine Hematology & Oncology
DX: C90.00 Multiple myeloma not having achieved remission (principal); Z45.2 Encounter for adjustment and management of vascular access device
CPT/HCPCS: 36591; 80053; 82784; 83883; 84165; 85025

== ENCOUNTER 2022-08-19 02:12 | Outpatient (RCR) | payer MEDICARE, BC, SELFPAY ==
[2022-08-19] MEDS: Heparin 500 UNITS/5 ML SYRINGE IV (08:03)
[2022-08-19] MEDS: Normal Saline Flush 10 ML SYR IVP (08:03)
[2022-08-19 08:12] LABS: Abs Immature Grans 0.01 10^3/uL (0.0-0.06); Absolute Basophil Count 0.14 10^3/uL (0.0-0.2); Absolute Eosinophil Count 0.26 10^3/uL (0.0-0.7); Absolute Lymphocyte Count 1.57 10^3/uL (1.2-3.4); Absolute Monocyte Count 0.41 10^3/uL (0.1-0.8); Absolute Neutrophil Count 1.44 10^3/uL (1.2-6.7); Basophils % 3.7; Eosinophils % 6.8; HCT 37.6 % (36.0-46.0); HGB 12.7 g/dL (11.2-15.7); Immature Grans % 0.3; MCH 31.9 pg (27.0-33.0); MCHC 33.8 % (32.0-36.0); MCV 95 fL (80-95); MPV 10.6 fL (8.0-11.0); Monocytes % 10.7; Neutrophils % 37.5; Platelet Count 182 10^3/uL (130-400); RBC 3.98 10^6/uL (3.93-5.22); RDW 12.4 % (11.7-14.6); RDW-SD 43.3 fL; WBC 3.83 10^3/uL (4.4-10.8)
[2022-08-19 08:35] LABS: ALT 59 U/L (14-59); AST 45 U/L (15-37); Albumin 3.7 g/dL (3.4-5.0); Alkaline Phosphatase 85 U/L (46-116); Anion Gap 6.3 mmol/L (3-11); BUN 13 mg/dL (7-18); Bilirubin, Total 0.9 mg/dL (0.2-1.0); CO2 29.7 mmol/L (21.0-32.0); CREATININE 0.9 mg/dL (0.55-1.02); Calcium 8.4 mg/dL (8.5-10.1); Chloride 105 mmol/L (98-107); Estimated GFR 70.07 (mL/min/1.73m2); Glucose 98 mg/dL (74-106); Potassium 3.8 mmol/L (3.5-5.1); Sodium 141 mmol/L (136-145); Total Protein 6.8 g/dL (6.4-8.2)
[2022-08-20 10:25] LABS: IgA 109 mg/dL (85-499); IgG 634 mg/dL (610-1616); IgM 39 mg/dL (35-242); Kappa Free Light Chain 1.23 mg/dL (0.33-1.94); Lambda Free Light Chain 0.89 mg/dL (0.57-2.63)
[2022-08-23 16:36] LABS: Albumin 63.9 % (55.8-66.1); Albumin g/dL 4.1 g/dL (3.6-5.2); Total Protein 6.4 g/dL (6.3-8.2)
== END 2022-08-24 23:59 | disposition home or self-care (01) ==
LOC: INF 02:12
PROVIDERS: PCP Physician Assistant Medical; Visit Provider Internal Medicine Hematology & Oncology
DX: C90.00 Multiple myeloma not having achieved remission (principal); Z45.2 Encounter for adjustment and management of vascular access device
CPT/HCPCS: 36591; 80053; 82784; 83883; 84165; 85025

== ENCOUNTER 2022-11-18 15:16 | Outpatient (CLI) | payer MEDICARE, BC, SELFPAY ==
[2022-11-18 14:51] LABS: Abs Immature Grans 0.02 10^3/uL (0.0-0.06); Absolute Eosinophil Count 0.15 10^3/uL (0.0-0.7); Absolute Lymphocyte Count 1.97 10^3/uL (1.2-3.4); Absolute Monocyte Count 0.59 10^3/uL (0.1-0.8); Absolute Neutrophil Count 2.86 10^3/uL (1.2-6.7); Basophils % 3.5; Eosinophils % 2.6; HCT 40.1 % (36.0-46.0); HGB 13.7 g/dL (11.2-15.7); Immature Grans % 0.3; MCH 30.9 pg (27.0-33.0); MCHC 34.2 % (32.0-36.0); MCV 91 fL (80-95); Monocytes % 10.2; Neutrophils % 49.4; Platelet Count 259 10^3/uL (130-400); RBC 4.43 10^6/uL (3.93-5.22); RDW 13.2 % (11.7-14.6); RDW-SD 43.2 fL; WBC 5.79 10^3/uL (4.4-10.8)
[2022-11-18 15:09] LABS: ALT 52 U/L (14-59); AST 32 U/L (15-37); Albumin 3.6 g/dL (3.4-5.0); Alkaline Phosphatase 80 U/L (46-116); BUN 17 mg/dL (7-18); Bilirubin, Total 0.5 mg/dL (0.2-1.0); CREATININE 1.1 mg/dL (0.55-1.02); Calcium 8.9 mg/dL (8.5-10.1); Chloride 105 mmol/L (98-107); Estimated GFR 54.73 (mL/min/1.73m2); Glucose 118 mg/dL (74-106); Potassium 3.5 mmol/L (3.5-5.1); Sodium 139 mmol/L (136-145); Total Protein 6.9 g/dL (6.4-8.2)
[2022-11-22 10:46] LABS: IgA 126 mg/dL (85-499); IgG 683 mg/dL (610-1616); IgM 40 mg/dL (35-242); Kappa Free Light Chain 1.06 mg/dL (0.33-1.94); Lambda Free Light Chain 0.77 mg/dL (0.57-2.63)
[2022-11-22 12:42] LABS: Albumin 62.4 % (55.8-66.1); Total Protein 6.4 g/dL (6.3-8.2)
== END 2022-11-18 15:17 | disposition home or self-care (01) ==
LOC: LBO 15:18
PROVIDERS: PCP Physician Assistant Medical; Visit Provider Nurse Practitioner Adult Health
DX: C90.00 Multiple myeloma not having achieved remission (principal)
CPT/HCPCS: 36415; 80053; 82784; 83883; 84165; 85025

== ENCOUNTER 2022-12-08 01:34 | Outpatient (CLI) | payer MEDICARE, BC, SELFPAY ==
--- NOTE | 2022-12-08 08:30 | DI.MAMMO_ITS ---
Exam(s) MAMMO SCREENING EXAM: MAMMO SCREENING CLINICAL HISTORY: SCREENING, Z12.31 TECHNIQUE: Mammograms were interpreted according to the usual protocol including computer analysis w [employer] CAD system, tomosynthesis and C-view imaging. COMPARISON: 2013 through 2020 FINDINGS: The breasts are composed of heterogeneously dense fibroglandular densities, Breast Density category C . No suspicious masses or suspicious microcalcifications are seen. No skin thickening or abnormal axillary lymph nodes are seen. There has been no significant change from prior exams. IMPRESSION: BI-RADS Category 1, Negative mammogram. Yearly screening mammography is recommended. Breast Density Category C, heterogeneously Dense. The mammogram demonstrates the patient's breast tissue is dense. Dense breast tissue is very common a nd is not abnormal but dense breast tissue can make it harder to find cancer on a mammogram. Also, de nse breast tissue may increase breast cancer risk. This information about the result of the mammogram report was provided to the patient to raise their awareness. Use this report when you speak with the patient about their risks for breast cancer, which includes their family history. At that time, you may recommend additional screening tests (Ultrasound or MRI) as they might be useful based on their r isk. A negative radiographic report should not delay biopsy if a dominant or clinically suspicious mass is present. Up to ten percent of cancers are not identified on mammography. A negative report may reinforce clinical impression. Adenosis and dense breasts may obscure an underlying neoplasm. False positive reports average 6 to 10%.
== END 2022-12-08 01:54 ==
LOC: DI 01:41
PROVIDERS: PCP Physician Assistant Medical; Visit Provider Physician Assistant Medical
DX: Z12.31 Encounter for screening mammogram for malignant neoplasm of breast (principal)
CPT/HCPCS: 77063; 77067

== ENCOUNTER 2022-12-10 02:27 | Outpatient (CLI) | payer MEDICARE, BC, SELFPAY ==
[2022-12-10 09:54] LABS: Abs Immature Grans 0.01 10^3/uL (0.0-0.06); Absolute Basophil Count 0.12 10^3/uL (0.0-0.2); Absolute Eosinophil Count 0.18 10^3/uL (0.0-0.7); Absolute Lymphocyte Count 1.61 10^3/uL (1.2-3.4); Absolute Monocyte Count 0.41 10^3/uL (0.1-0.8); Absolute Neutrophil Count 2.24 10^3/uL (1.2-6.7); Basophils % 2.6; Eosinophils % 3.9; HCT 40.2 % (36.0-46.0); HGB 13.6 g/dL (11.2-15.7); Immature Grans % 0.2; Lymphocytes % 35.2; MCH 31.2 pg (27.0-33.0); MCHC 33.8 % (32.0-36.0); MCV 92 fL (80-95); MPV 10.4 fL (8.0-11.0); Neutrophils % 49.1; Platelet Count 206 10^3/uL (130-400); RBC 4.36 10^6/uL (3.93-5.22); RDW 13.6 % (11.7-14.6); RDW-SD 46.5 fL; WBC 4.57 10^3/uL (4.4-10.8)
[2022-12-10 10:25] LABS: ALT 85 U/L (14-59); AST 53 U/L (15-37); Albumin 3.6 g/dL (3.4-5.0); Alkaline Phosphatase 100 U/L (46-116); BUN 18 mg/dL (7-18); Bilirubin, Total 0.8 mg/dL (0.2-1.0); CREATININE 0.9 mg/dL (0.55-1.02); Chloride 103 mmol/L (98-107); Estimated GFR 69.64 (mL/min/1.73m2); Glucose 98 mg/dL (74-106); Potassium 3.8 mmol/L (3.5-5.1); Sodium 142 mmol/L (136-145); Total Protein 7.2 g/dL (6.4-8.2)
[2022-12-13 11:18] LABS: IgA 136 mg/dL (85-499); IgG 683 mg/dL (610-1616); IgM 29 mg/dL (35-242); Kappa Free Light Chain 1.15 mg/dL (0.33-1.94); Lambda Free Light Chain 0.84 mg/dL (0.57-2.63)
[2022-12-13 12:58] LABS: Albumin 62.5 % (55.8-66.1); Albumin g/dL 4.1 g/dL (3.6-5.2); Total Protein 6.5 g/dL (6.3-8.2)
== END 2022-12-10 02:28 | disposition home or self-care (01) ==
LOC: LBO 02:27
PROVIDERS: PCP Physician Assistant Medical; Visit Provider Nurse Practitioner Adult Health
DX: C90.00 Multiple myeloma not having achieved remission (principal)
CPT/HCPCS: 36415; 80053; 82784; 83883; 84165; 85025

== ENCOUNTER 2023-01-06 01:32 | Outpatient (CLI) | payer MEDICARE, BC, SELFPAY ==
[2023-01-06 16:55] LABS: Abs Immature Grans 0.01 10^3/uL (0.0-0.06); Absolute Eosinophil Count 0.18 10^3/uL (0.0-0.7); Absolute Lymphocyte Count 1.85 10^3/uL (1.2-3.4); Absolute Monocyte Count 0.39 10^3/uL (0.1-0.8); Absolute Neutrophil Count 1.41 10^3/uL (1.2-6.7); Basophils % 2.5; Eosinophils % 4.6; HCT 36.5 % (36.0-46.0); HGB 12.4 g/dL (11.2-15.7); Immature Grans % 0.3; MCH 31.7 pg (27.0-33.0); MCV 93 fL (80-95); MPV 10.3 fL (8.0-11.0); Monocytes % 9.9; Neutrophils % 35.7; Platelet Count 164 10^3/uL (130-400); RBC 3.91 10^6/uL (3.93-5.22); RDW 13.3 % (11.7-14.6); RDW-SD 45.6 fL; WBC 3.94 10^3/uL (4.4-10.8)
[2023-01-06 17:28] LABS: ALT 66 U/L (14-59); AST 38 U/L (15-37); Albumin 3.3 g/dL (3.4-5.0); Alkaline Phosphatase 76 U/L (46-116); Anion Gap 7.7 mmol/L (3-11); BUN 9 mg/dL (7-18); Bilirubin, Total 0.5 mg/dL (0.2-1.0); CO2 30.3 mmol/L (21.0-32.0); CREATININE 0.8 mg/dL (0.55-1.02); Calcium 8.5 mg/dL (8.5-10.1); Chloride 106 mmol/L (98-107); Estimated GFR 80.21 (mL/min/1.73m2); Glucose 93 mg/dL (74-106); Potassium 3.4 mmol/L (3.5-5.1); Sodium 144 mmol/L (136-145); Total Protein 6.5 g/dL (6.4-8.2)
[2023-01-10 11:09] LABS: IgA 130 mg/dL (85-499); IgG 645 mg/dL (610-1616); IgM 29 mg/dL (35-242); Kappa Free Light Chain 1.15 mg/dL (0.33-1.94); Lambda Free Light Chain 0.75 mg/dL (0.57-2.63)
[2023-01-10 13:13] LABS: Albumin 62.9 % (55.8-66.1); Albumin g/dL 3.7 g/dL (3.6-5.2); Total Protein 5.9 g/dL (6.3-8.2)
== END 2023-01-06 01:33 | disposition home or self-care (01) ==
PROVIDERS: PCP Physician Assistant Medical; Visit Provider Nurse Practitioner Adult Health
DX: C90.00 Multiple myeloma not having achieved remission (principal)
CPT/HCPCS: 36415; 80053; 82784; 83883; 84165; 85025

== ENCOUNTER 2023-02-07 04:25 | Outpatient (CLI) | payer MEDICARE, BC, SELFPAY ==
[2023-02-07 12:12] LABS: Abs Immature Grans 0.01 10^3/uL (0.0-0.06); Absolute Basophil Count 0.12 10^3/uL (0.0-0.2); Absolute Eosinophil Count 0.08 10^3/uL (0.0-0.7); Absolute Lymphocyte Count 1.83 10^3/uL (1.2-3.4); Absolute Monocyte Count 0.43 10^3/uL (0.1-0.8); Absolute Neutrophil Count 2.53 10^3/uL (1.2-6.7); Basophils % 2.4; Eosinophils % 1.6; HCT 39.5 % (36.0-46.0); HGB 13.2 g/dL (11.2-15.7); Immature Grans % 0.2; Lymphocytes % 36.6; MCH 31.2 pg (27.0-33.0); MCHC 33.4 % (32.0-36.0); MCV 93 fL (80-95); MPV 10.5 fL (8.0-11.0); Monocytes % 8.6; Neutrophils % 50.6; Platelet Count 216 10^3/uL (130-400); RBC 4.23 10^6/uL (3.93-5.22); RDW 12.7 % (11.7-14.6); RDW-SD 43.7 fL
[2023-02-07 12:32] LABS: ALT 48 U/L (14-59); AST 36 U/L (15-37); Albumin 3.7 g/dL (3.4-5.0); Alkaline Phosphatase 81 U/L (46-116); Anion Gap 9.2 mmol/L (3-11); BUN 13 mg/dL (7-18); Bilirubin, Total 0.8 mg/dL (0.2-1.0); CO2 28.8 mmol/L (21.0-32.0); CREATININE 0.8 mg/dL (0.55-1.02); Calcium 8.9 mg/dL (8.5-10.1); Chloride 103 mmol/L (98-107); Estimated GFR 80.21 (mL/min/1.73m2); Glucose 91 mg/dL (74-106); Potassium 3.9 mmol/L (3.5-5.1); Sodium 141 mmol/L (136-145); Total Protein 6.9 g/dL (6.4-8.2)
[2023-02-08 09:32] LABS: IgA 152 mg/dL (85-499); IgG 672 mg/dL (610-1616); IgM 33 mg/dL (35-242); Kappa Free Light Chain 0.94 mg/dL (0.33-1.94); Lambda Free Light Chain 0.75 mg/dL (0.57-2.63)
[2023-02-08 14:35] LABS: Albumin 60.6 % (55.8-66.1); Albumin g/dL 3.9 g/dL (3.6-5.2); Alpha 1 g/dL 0.28 g/dL (0.15-0.40); Alpha 2 g/dL 0.63 g/dL (0.50-1.00); Beta g/dL 0.91 g/dL (0.60-1.20); Total Protein 6.4 g/dL (6.3-8.2)
== END 2023-02-07 04:26 | disposition home or self-care (01) ==
PROVIDERS: PCP Physician Assistant Medical; Visit Provider Nurse Practitioner Adult Health
DX: C90.00 Multiple myeloma not having achieved remission (principal)
CPT/HCPCS: 36415; 80053; 82784; 83883; 84165; 85025

== ENCOUNTER 2023-03-02 02:46 | Outpatient (CLI) | payer MEDICARE, BC, SELFPAY ==
[2023-03-02 08:39] LABS: Abs Immature Grans 0.01 10^3/uL (0.0-0.06); Absolute Basophil Count 0.08 10^3/uL (0.0-0.2); Absolute Eosinophil Count 0.27 10^3/uL (0.0-0.7); Absolute Lymphocyte Count 1.37 10^3/uL (1.2-3.4); Absolute Monocyte Count 0.41 10^3/uL (0.1-0.8); Absolute Neutrophil Count 2.04 10^3/uL (1.2-6.7); Basophils % 1.9; Eosinophils % 6.5; HCT 39.5 % (36.0-46.0); HGB 13.1 g/dL (11.2-15.7); Immature Grans % 0.2; Lymphocytes % 32.8; MCH 30.5 pg (27.0-33.0); MCHC 33.2 % (32.0-36.0); MCV 92 fL (80-95); MPV 10.4 fL (8.0-11.0); Monocytes % 9.8; Neutrophils % 48.8; Platelet Count 161 10^3/uL (130-400); RBC 4.29 10^6/uL (3.93-5.22); RDW 12.6 % (11.7-14.6); RDW-SD 42.9 fL; WBC 4.18 10^3/uL (4.4-10.8)
[2023-03-02 09:16] LABS: ALT 95 U/L (14-59); AST 83 U/L (15-37); Albumin 3.4 g/dL (3.4-5.0); Alkaline Phosphatase 90 U/L (46-116); Anion Gap 7.9 mmol/L (3-11); BUN 13 mg/dL (7-18); Bilirubin, Total 0.6 mg/dL (0.2-1.0); CO2 28.1 mmol/L (21.0-32.0); CREATININE 0.9 mg/dL (0.55-1.02); Calcium 8.5 mg/dL (8.5-10.1); Chloride 108 mmol/L (98-107); Estimated GFR 69.64 (mL/min/1.73m2); Glucose 100 mg/dL (74-106); Sodium 144 mmol/L (136-145); Total Protein 6.6 g/dL (6.4-8.2)
[2023-03-03 09:02] LABS: IgA 139 mg/dL (85-499); IgG 654 mg/dL (610-1616); IgM 34 mg/dL (35-242); Kappa Free Light Chain 1.52 mg/dL (0.33-1.94); Lambda Free Light Chain 1.01 mg/dL (0.57-2.63)
[2023-03-03 13:24] LABS: Albumin g/dL 3.8 g/dL (3.6-5.2); Total Protein 6.2 g/dL (6.3-8.2)
== END 2023-03-02 02:47 | disposition home or self-care (01) ==
PROVIDERS: Referring Provider Nurse Practitioner Adult Health; Visit Provider Nurse Practitioner Adult Health
DX: C90.00 Multiple myeloma not having achieved remission (principal)
CPT/HCPCS: 36415; 80053; 82784; 83883; 84165; 85025

== ENCOUNTER 2023-03-30 04:00 | Outpatient (CLI) | payer MEDICARE, BC, SELFPAY ==
[2023-03-30 08:16] LABS: Absolute Basophil Count 0.13 10^3/uL (0.0-0.2); Absolute Eosinophil Count 0.31 10^3/uL (0.0-0.7); Absolute Lymphocyte Count 1.58 10^3/uL (1.2-3.4); Absolute Monocyte Count 0.39 10^3/uL (0.1-0.8); Absolute Neutrophil Count 1.77 10^3/uL (1.2-6.7); Basophils % 3.1; Eosinophils % 7.4; HCT 39.4 % (36.0-46.0); HGB 13.3 g/dL (11.2-15.7); Lymphocytes % 37.8; MCH 31.1 pg (27.0-33.0); MCHC 33.8 % (32.0-36.0); MCV 92 fL (80-95); MPV 10.4 fL (8.0-11.0); Monocytes % 9.3; Neutrophils % 42.4; Platelet Count 167 10^3/uL (130-400); RBC 4.27 10^6/uL (3.93-5.22); RDW 12.8 % (11.7-14.6); RDW-SD 43.1 fL; WBC 4.18 10^3/uL (4.4-10.8)
[2023-03-30 08:30] LABS: ALT 48 U/L (14-59); AST 37 U/L (15-37); Albumin 3.4 g/dL (3.4-5.0); Alkaline Phosphatase 83 U/L (46-116); Anion Gap 8.3 mmol/L (3-11); BUN 12 mg/dL (7-18); Bilirubin, Total 0.7 mg/dL (0.2-1.0); CO2 27.7 mmol/L (21.0-32.0); CREATININE 0.9 mg/dL (0.55-1.02); Calcium 8.4 mg/dL (8.5-10.1); Chloride 103 mmol/L (98-107); Estimated GFR 69.64 (mL/min/1.73m2); Glucose 93 mg/dL (74-106); Potassium 4.2 mmol/L (3.5-5.1); Sodium 139 mmol/L (136-145); Total Protein 6.6 g/dL (6.4-8.2)
[2023-03-31 08:43] LABS: IgA 149 mg/dL (85-499); IgG 695 mg/dL (610-1616); IgM 30 mg/dL (35-242); Kappa Free Light Chain 1.52 mg/dL (0.33-1.94); Lambda Free Light Chain 1.01 mg/dL (0.57-2.63)
[2023-03-31 14:12] LABS: Total Protein 6.4 g/dL (6.3-8.2)
== END 2023-03-30 04:01 | disposition home or self-care (01) ==
PROVIDERS: Visit Provider Internal Medicine Hematology & Oncology
DX: C90.00 Multiple myeloma not having achieved remission (principal)
CPT/HCPCS: 80053; 82784; 83883; 84165; 85025

== ENCOUNTER 2023-06-22 03:06 | Outpatient (CLI) | payer MEDICARE, BC, SELFPAY ==
[2023-06-22 08:42] LABS: Abs Immature Grans 0.02 10^3/uL (0.0-0.06); Absolute Basophil Count 0.13 10^3/uL (0.0-0.2); Absolute Eosinophil Count 0.27 10^3/uL (0.0-0.7); Absolute Lymphocyte Count 1.76 10^3/uL (1.2-3.4); Absolute Monocyte Count 0.47 10^3/uL (0.1-0.8); Absolute Neutrophil Count 3.01 10^3/uL (1.2-6.7); Basophils % 2.3; Eosinophils % 4.8; HGB 13.6 g/dL (11.2-15.7); Immature Grans % 0.4; Lymphocytes % 31.1; MCH 30.4 pg (27.0-33.0); MCHC 33.2 % (32.0-36.0); MCV 92 fL (80-95); MPV 10.6 fL (8.0-11.0); Monocytes % 8.3; Neutrophils % 53.1; Platelet Count 183 10^3/uL (130-400); RBC 4.47 10^6/uL (3.93-5.22); RDW 13.2 % (11.7-14.6); WBC 5.66 10^3/uL (4.4-10.8)
[2023-06-22 09:17] LABS: ALT 51 U/L (14-59); AST 33 U/L (15-37); Albumin 3.6 g/dL (3.4-5.0); Alkaline Phosphatase 81 U/L (46-116); Anion Gap 8.3 mmol/L (3-11); BUN 10 mg/dL (7-18); Bilirubin, Total 0.8 mg/dL (0.2-1.0); CO2 29.7 mmol/L (21.0-32.0); CREATININE 0.8 mg/dL (0.55-1.02); Chloride 101 mmol/L (98-107); Estimated GFR 80.21 (mL/min/1.73m2); Glucose 93 mg/dL (74-106); Potassium 3.5 mmol/L (3.5-5.1); Sodium 139 mmol/L (136-145); Total Protein 7.2 g/dL (6.4-8.2)
[2023-06-23 13:30] LABS: Albumin g/dL 4.1 g/dL (3.6-5.2); Total Protein 6.8 g/dL (6.3-8.2)
[2023-06-24 09:07] LABS: IgA 169 mg/dL (85-499); IgG 796 mg/dL (610-1616); IgM 36 mg/dL (35-242); Kappa Free Light Chain 1.56 mg/dL (0.33-1.94); Lambda Free Light Chain 1.18 mg/dL (0.57-2.63)
== END 2023-06-22 03:07 | disposition home or self-care (01) ==
PROVIDERS: Visit Provider Nurse Practitioner Adult Health
DX: C90.00 Multiple myeloma not having achieved remission (principal)
CPT/HCPCS: 36415; 80053; 82784; 83883; 84165; 85025

== ENCOUNTER 2023-07-20 01:25 | Outpatient (CLI) | payer MEDICARE, BC, SELFPAY ==
[2023-07-20 08:14] LABS: Abs Immature Grans 0.01 10^3/uL (0.0-0.06); Absolute Basophil Count 0.12 10^3/uL (0.0-0.2); Absolute Eosinophil Count 0.27 10^3/uL (0.0-0.7); Absolute Lymphocyte Count 1.97 10^3/uL (1.2-3.4); Absolute Monocyte Count 0.52 10^3/uL (0.1-0.8); Basophils % 2.4; Eosinophils % 5.3; HCT 39.2 % (36.0-46.0); HGB 12.9 g/dL (11.2-15.7); Immature Grans % 0.2; Lymphocytes % 38.7; MCH 30.6 pg (27.0-33.0); MCHC 32.9 % (32.0-36.0); MCV 93 fL (80-95); MPV 10.3 fL (8.0-11.0); Monocytes % 10.2; Neutrophils % 43.2; Platelet Count 175 10^3/uL (130-400); RBC 4.22 10^6/uL (3.93-5.22); RDW 13.4 % (11.7-14.6); RDW-SD 45.4 fL; WBC 5.09 10^3/uL (4.4-10.8)
[2023-07-20 08:30] LABS: ALT 78 U/L (14-59); AST 42 U/L (15-37); Albumin 3.3 g/dL (3.4-5.0); Alkaline Phosphatase 75 U/L (46-116); Anion Gap 6.3 mmol/L (3-11); BUN 10 mg/dL (7-18); Bilirubin, Total 0.8 mg/dL (0.2-1.0); CO2 30.7 mmol/L (21.0-32.0); CREATININE 0.9 mg/dL (0.55-1.02); Calcium 8.6 mg/dL (8.5-10.1); Chloride 104 mmol/L (98-107); Estimated GFR 69.64 (mL/min/1.73m2); Glucose 93 mg/dL (74-106); Potassium 3.6 mmol/L (3.5-5.1); Sodium 141 mmol/L (136-145); Total Protein 6.7 g/dL (6.4-8.2)
[2023-07-21 08:30] LABS: IgA 151 mg/dL (85-499); IgG 696 mg/dL (610-1616); IgM 25 mg/dL (35-242); Kappa Free Light Chain 1.58 mg/dL (0.33-1.94); Lambda Free Light Chain 1.13 mg/dL (0.57-2.63)
[2023-07-21 14:05] LABS: Albumin 62.4 % (55.8-66.1); Albumin g/dL 3.9 g/dL (3.6-5.2); Total Protein 6.2 g/dL (6.3-8.2)
== END 2023-07-20 01:26 | disposition home or self-care (01) ==
PROVIDERS: Visit Provider Nurse Practitioner Adult Health
DX: C90.00 Multiple myeloma not having achieved remission (principal)
CPT/HCPCS: 36415; 80053; 82784; 83883; 84165; 85025

== ENCOUNTER 2023-08-17 02:47 | Outpatient (CLI) | payer MEDICARE, BC, SELFPAY ==
[2023-08-17 08:52] LABS: Abs Immature Grans 0.03 10^3/uL (0.0-0.06); Absolute Basophil Count 0.13 10^3/uL (0.0-0.2); Absolute Eosinophil Count 0.25 10^3/uL (0.0-0.7); Absolute Lymphocyte Count 1.88 10^3/uL (1.2-3.4); Absolute Monocyte Count 0.54 10^3/uL (0.1-0.8); Absolute Neutrophil Count 2.38 10^3/uL (1.2-6.7); Basophils % 2.5; Eosinophils % 4.8; HCT 38.5 % (36.0-46.0); HGB 12.8 g/dL (11.2-15.7); Immature Grans % 0.6; Lymphocytes % 36.1; MCH 30.1 pg (27.0-33.0); MCHC 33.2 % (32.0-36.0); MCV 91 fL (80-95); MPV 10.2 fL (8.0-11.0); Monocytes % 10.4; Neutrophils % 45.6; Platelet Count 214 10^3/uL (130-400); RBC 4.25 10^6/uL (3.93-5.22); RDW 12.9 % (11.7-14.6); RDW-SD 42.7 fL; WBC 5.21 10^3/uL (4.4-10.8)
[2023-08-17 09:49] LABS: ALT 48 U/L (14-59); AST 24 U/L (15-37); Albumin 3.2 g/dL (3.4-5.0); Alkaline Phosphatase 100 U/L (46-116); Anion Gap 8.7 mmol/L (3-11); BUN 12 mg/dL (7-18); Bilirubin, Total 0.6 mg/dL (0.2-1.0); CO2 28.3 mmol/L (21.0-32.0); CREATININE 0.8 mg/dL (0.55-1.02); Calcium 8.8 mg/dL (8.5-10.1); Chloride 104 mmol/L (98-107); Estimated GFR 80.21 (mL/min/1.73m2); Glucose 97 mg/dL (74-106); Potassium 3.7 mmol/L (3.5-5.1); Sodium 141 mmol/L (136-145); Total Protein 6.8 g/dL (6.4-8.2)
[2023-08-18 09:51] LABS: IgA 182 mg/dL (85-499); IgG 725 mg/dL (610-1616); IgM 37 mg/dL (35-242); Kappa Free Light Chain 1.78 mg/dL (0.33-1.94)
[2023-08-18 13:36] LABS: Albumin 57.3 % (55.8-66.1); Albumin g/dL 3.6 g/dL (3.6-5.2); Total Protein 6.3 g/dL (6.3-8.2)
== END 2023-08-17 02:48 | disposition home or self-care (01) ==
PROVIDERS: Visit Provider Nurse Practitioner Adult Health
DX: C90.00 Multiple myeloma not having achieved remission (principal)
CPT/HCPCS: 36415; 80053; 82784; 83883; 84165; 85025

== ENCOUNTER 2023-09-14 01:38 | Outpatient (CLI) | payer MEDICARE, BC, SELFPAY ==
[2023-09-14 08:38] LABS: Abs Immature Grans 0.02 10^3/uL (0.0-0.06); Absolute Basophil Count 0.18 10^3/uL (0.0-0.2); Absolute Eosinophil Count 0.29 10^3/uL (0.0-0.7); Absolute Lymphocyte Count 2.17 10^3/uL (1.2-3.4); Absolute Monocyte Count 0.52 10^3/uL (0.1-0.8); Absolute Neutrophil Count 2.04 10^3/uL (1.2-6.7); Basophils % 3.4; Eosinophils % 5.6; HCT 40.7 % (36.0-46.0); HGB 13.2 g/dL (11.2-15.7); Immature Grans % 0.4; Lymphocytes % 41.6; MCH 30.1 pg (27.0-33.0); MCHC 32.4 % (32.0-36.0); MCV 93 fL (80-95); MPV 10.7 fL (8.0-11.0); Platelet Count 209 10^3/uL (130-400); RBC 4.38 10^6/uL (3.93-5.22); RDW 13.6 % (11.7-14.6); RDW-SD 46.7 fL; WBC 5.22 10^3/uL (4.4-10.8)
[2023-09-14 09:22] LABS: ALT 54 U/L (14-59); AST 33 U/L (15-37); Albumin 3.7 g/dL (3.4-5.0); Alkaline Phosphatase 76 U/L (46-116); Anion Gap 9.2 mmol/L (3-11); BUN 13 mg/dL (7-18); Bilirubin, Total 1.1 mg/dL (0.2-1.0); CO2 28.8 mmol/L (21.0-32.0); Calcium 8.8 mg/dL (8.5-10.1); Chloride 102 mmol/L (98-107); Estimated GFR 61.36 (mL/min/1.73m2); Glucose 98 mg/dL (74-106); Potassium 3.2 mmol/L (3.5-5.1); Sodium 140 mmol/L (136-145); Total Protein 7.1 g/dL (6.4-8.2)
[2023-09-15 10:03] LABS: IgA 181 mg/dL (85-499); IgG 697 mg/dL (610-1616); IgM 29 mg/dL (35-242); Kappa Free Light Chain 1.65 mg/dL (0.33-1.94); Lambda Free Light Chain 1.66 mg/dL (0.57-2.63)
[2023-09-15 15:12] LABS: Albumin 61.5 % (55.8-66.1); Albumin g/dL 4.1 g/dL (3.6-5.2); Total Protein 6.7 g/dL (6.3-8.2)
== END 2023-09-14 01:39 | disposition home or self-care (01) ==
PROVIDERS: Visit Provider Nurse Practitioner Adult Health
DX: C90.00 Multiple myeloma not having achieved remission (principal)
CPT/HCPCS: 36415; 80053; 82784; 83883; 84165; 85025

== ENCOUNTER 2023-10-14 01:54 | Outpatient (CLI) | payer MEDICARE, BC, SELFPAY ==
[2023-10-14 07:59] LABS: Abs Immature Grans 0.01 10^3/uL (0.0-0.06); Absolute Basophil Count 0.09 10^3/uL (0.0-0.2); Absolute Eosinophil Count 0.18 10^3/uL (0.0-0.7); Absolute Lymphocyte Count 2.18 10^3/uL (1.2-3.4); Absolute Monocyte Count 0.49 10^3/uL (0.1-0.8); Absolute Neutrophil Count 1.97 10^3/uL (1.2-6.7); Basophils % 1.8; Eosinophils % 3.7; HCT 41.4 % (36.0-46.0); HGB 13.9 g/dL (11.2-15.7); Immature Grans % 0.2; Lymphocytes % 44.3; MCHC 33.6 % (32.0-36.0); MCV 92 fL (80-95); MPV 10.5 fL (8.0-11.0); Platelet Count 177 10^3/uL (130-400); RBC 4.49 10^6/uL (3.93-5.22); RDW 13.1 % (11.7-14.6); RDW-SD 44.6 fL; WBC 4.92 10^3/uL (4.4-10.8)
[2023-10-14 08:50] LABS: ALT 38 U/L (14-59); AST 27 U/L (15-37); Albumin 3.5 g/dL (3.4-5.0); Alkaline Phosphatase 61 U/L (46-116); Anion Gap 7.3 mmol/L (3-11); BUN 13 mg/dL (7-18); Bilirubin, Total 0.8 mg/dL (0.2-1.0); CO2 28.7 mmol/L (21.0-32.0); CREATININE 0.9 mg/dL (0.55-1.02); Chloride 106 mmol/L (98-107); Estimated GFR 69.64 (mL/min/1.73m2); Glucose 95 mg/dL (74-106); Sodium 142 mmol/L (136-145); Total Protein 6.9 g/dL (6.4-8.2)
[2023-10-17 09:56] LABS: IgA 169 mg/dL (85-499); IgG 738 mg/dL (610-1616); IgM 24 mg/dL (35-242); Kappa Free Light Chain 1.41 mg/dL (0.33-1.94); Lambda Free Light Chain 1.38 mg/dL (0.57-2.63)
[2023-10-17 13:19] LABS: Albumin 60.6 % (55.8-66.1); Albumin g/dL 3.9 g/dL (3.6-5.2); Total Protein 6.4 g/dL (6.3-8.2)
== END 2023-10-14 01:55 | disposition home or self-care (01) ==
PROVIDERS: Visit Provider Nurse Practitioner Adult Health
DX: C90.00 Multiple myeloma not having achieved remission (principal)
CPT/HCPCS: 36415; 80053; 82784; 83883; 84165; 85025

== ENCOUNTER 2023-12-14 05:21 | Outpatient (CLI) | payer MEDICARE, BC, SELFPAY ==
[2023-12-14 13:16] LABS: Abs Immature Grans 0.01 10^3/uL (0.0-0.06); Absolute Basophil Count 0.14 10^3/uL (0.0-0.2); Absolute Eosinophil Count 0.29 10^3/uL (0.0-0.7); Absolute Lymphocyte Count 1.69 10^3/uL (1.2-3.4); Absolute Monocyte Count 0.38 10^3/uL (0.1-0.8); Absolute Neutrophil Count 2.12 10^3/uL (1.2-6.7); Eosinophils % 6.3 %; HCT 38.7 % (36.0-46.0); HGB 13.1 g/dL (11.2-15.7); Immature Grans % 0.2 %; Lymphocytes % 36.5 %; MCHC 33.9 % (32.0-36.0); MCV 92 fL (80-95); MPV 11.1 fL (8.0-11.0); Monocytes % 8.2 %; Neutrophils % 45.8 %; Platelet Count 180 10^3/uL (130-400); RBC 4.22 10^6/uL (3.93-5.22); RDW 13.5 % (11.7-14.6); RDW-SD 45.3 fL; WBC 4.63 10^3/uL (4.4-10.8)
[2023-12-14 13:49] LABS: ALT 40 U/L (14-59); AST 24 U/L (15-37); Albumin 3.6 g/dL (3.4-5.0); Alkaline Phosphatase 60 U/L (46-116); Anion Gap 7.4 mmol/L (3-11); BUN 9 mg/dL (7-18); Bilirubin, Total 0.7 mg/dL (0.2-1.0); CO2 29.6 mmol/L (21.0-32.0); CREATININE 0.8 mg/dL (0.55-1.02); Calcium 8.8 mg/dL (8.5-10.1); Chloride 103 mmol/L (98-107); Estimated GFR 79.71 (mL/min/1.73m2); Glucose 74 mg/dL (74-106); Potassium 3.5 mmol/L (3.5-5.1); Sodium 140 mmol/L (136-145); Total Protein 6.9 g/dL (6.4-8.2)
[2023-12-15 09:29] LABS: IgA 179 mg/dL (85-499); IgG 724 mg/dL (610-1616); IgM 27 mg/dL (35-242); Kappa Free Light Chain 1.31 mg/dL (0.33-1.94); Lambda Free Light Chain 1.29 mg/dL (0.57-2.63)
[2023-12-15 14:01] LABS: Albumin 61.9 % (55.8-66.1); Total Protein 6.4 g/dL (6.3-8.2)
== END 2023-12-14 05:22 | disposition home or self-care (01) ==
PROVIDERS: Visit Provider Nurse Practitioner Adult Health
DX: C90.00 Multiple myeloma not having achieved remission (principal)
CPT/HCPCS: 36415; 80053; 82784; 83883; 84165; 85025

== ENCOUNTER 2024-01-13 01:45 | Outpatient (CLI) | payer MEDICARE, BC, SELFPAY ==
[2024-01-13 10:31] LABS: Abs Immature Grans 0.02 10^3/uL (0.0-0.06); Absolute Basophil Count 0.11 10^3/uL (0.0-0.2); Absolute Eosinophil Count 0.15 10^3/uL (0.0-0.7); Absolute Lymphocyte Count 1.73 10^3/uL (1.2-3.4); Absolute Monocyte Count 0.36 10^3/uL (0.1-0.8); Absolute Neutrophil Count 2.25 10^3/uL (1.2-6.7); Basophils % 2.4 %; Eosinophils % 3.2 %; HCT 39.6 % (36.0-46.0); HGB 13.2 g/dL (11.2-15.7); Immature Grans % 0.4 %; Lymphocytes % 37.4 %; MCH 31.2 pg (27.0-33.0); MCHC 33.3 % (32.0-36.0); MCV 94 fL (80-95); MPV 10.8 fL (8.0-11.0); Monocytes % 7.8 %; Neutrophils % 48.8 %; Platelet Count 178 10^3/uL (130-400); RBC 4.23 10^6/uL (3.93-5.22); RDW 13.2 % (11.7-14.6); RDW-SD 45.1 fL; WBC 4.62 10^3/uL (4.4-10.8)
[2024-01-13 11:23] LABS: ALT 37 U/L (14-59); AST 28 U/L (15-37); Albumin 3.5 g/dL (3.4-5.0); Alkaline Phosphatase 58 U/L (46-116); Anion Gap 10.4 mmol/L (3-11); BUN 15 mg/dL (7-18); Bilirubin, Total 0.78 mg/dL (0.2-1.0); CO2 24.6 mmol/L (21.0-32.0); CREATININE 0.9 mg/dL (0.55-1.02); Calcium 8.7 mg/dL (8.5-10.1); Chloride 107 mmol/L (98-107); Glucose 100 mg/dL (74-106); Potassium 3.7 mmol/L (3.5-5.1); Sodium 142 mmol/L (136-145); Total Protein 6.8 g/dL (6.4-8.2)
[2024-01-16 10:55] LABS: IgA 175 mg/dL (85-499); IgG 682 mg/dL (610-1616); IgM 27 mg/dL (35-242); Kappa Free Light Chain 1.33 mg/dL (0.33-1.94); Lambda Free Light Chain 1.23 mg/dL (0.57-2.63)
[2024-01-16 12:29] LABS: Albumin 61.6 % (55.8-66.1); Albumin g/dL 3.9 g/dL (3.6-5.2); Total Protein 6.4 g/dL (6.3-8.2)
== END 2024-01-13 01:46 | disposition home or self-care (01) ==
LOC: LBO 01:46
PROVIDERS: Visit Provider Nurse Practitioner Adult Health
DX: C90.00 Multiple myeloma not having achieved remission (principal)
CPT/HCPCS: 36415; 80053; 82784; 83883; 84165; 85025

== ENCOUNTER 2024-02-08 03:16 | Outpatient (CLI) | payer MEDICARE, BC, SELFPAY ==
[2024-02-08 10:34] LABS: Abs Immature Grans 0.02 10^3/uL (0.0-0.06); Absolute Basophil Count 0.12 10^3/uL (0.0-0.2); Absolute Eosinophil Count 0.36 10^3/uL (0.0-0.7); Absolute Lymphocyte Count 1.49 10^3/uL (1.2-3.4); Absolute Monocyte Count 0.43 10^3/uL (0.1-0.8); Absolute Neutrophil Count 2.36 10^3/uL (1.2-6.7); Basophils % 2.5 %; Eosinophils % 7.5 %; HCT 39.4 % (36.0-46.0); HGB 13.4 g/dL (11.2-15.7); Immature Grans % 0.4 %; Lymphocytes % 31.2 %; MCH 31.5 pg (27.0-33.0); MCV 93 fL (80-95); Neutrophils % 49.4 %; Platelet Count 178 10^3/uL (130-400); RBC 4.25 10^6/uL (3.93-5.22); RDW 13.1 % (11.7-14.6); RDW-SD 44.6 fL; WBC 4.78 10^3/uL (4.4-10.8)
[2024-02-08 10:56] LABS: ALT 34 U/L (14-59); AST 26 U/L (15-37); Albumin 3.7 g/dL (3.4-5.0); Alkaline Phosphatase 61 U/L (46-116); Anion Gap 12.7 mmol/L (3-11); BUN 10 mg/dL (7-18); Bilirubin, Total 0.98 mg/dL (0.2-1.0); CO2 24.3 mmol/L (21.0-32.0); Calcium 8.8 mg/dL (8.5-10.1); Chloride 105 mmol/L (98-107); Estimated GFR 60.98 (mL/min/1.73m2); Glucose 111 mg/dL (74-106); Potassium 3.9 mmol/L (3.5-5.1); Sodium 142 mmol/L (136-145); Total Protein 7.2 g/dL (6.4-8.2)
[2024-02-09 10:14] LABS: IgA 178 mg/dL (85-499); IgG 707 mg/dL (610-1616); IgM 30 mg/dL (35-242); Kappa Free Light Chain 1.36 mg/dL (0.33-1.94); Lambda Free Light Chain 1.31 mg/dL (0.57-2.63)
[2024-02-09 14:12] LABS: Albumin 62.4 % (55.8-66.1); Albumin g/dL 4.1 g/dL (3.6-5.2); Total Protein 6.6 g/dL (6.3-8.2)
== END 2024-02-08 03:17 | disposition home or self-care (01) ==
PROVIDERS: Visit Provider Nurse Practitioner Adult Health
DX: C90.00 Multiple myeloma not having achieved remission (principal)
CPT/HCPCS: 80053; 82784; 83883; 84165; 85025

== ENCOUNTER 2024-03-07 03:17 | Outpatient (CLI) | payer MEDICARE, BC, SELFPAY ==
[2024-03-07 07:54] LABS: Abs Immature Grans 0.02 10^3/uL (0.0-0.06); Absolute Basophil Count 0.12 10^3/uL (0.0-0.2); Absolute Eosinophil Count 0.36 10^3/uL (0.0-0.7); Absolute Lymphocyte Count 1.86 10^3/uL (1.2-3.4); Absolute Monocyte Count 0.47 10^3/uL (0.1-0.8); Absolute Neutrophil Count 1.74 10^3/uL (1.2-6.7); Basophils % 2.6 %; Eosinophils % 7.9 %; Immature Grans % 0.4 %; Lymphocytes % 40.7 %; MCH 31.4 pg (27.0-33.0); MCHC 33.3 % (32.0-36.0); MCV 94 fL (80-95); MPV 10.3 fL (8.0-11.0); Monocytes % 10.3 %; Neutrophils % 38.1 %; Platelet Count 174 10^3/uL (130-400); RBC 4.14 10^6/uL (3.93-5.22); RDW-SD 45.2 fL; WBC 4.57 10^3/uL (4.4-10.8)
[2024-03-07 08:28] LABS: ALT 33 U/L (14-59); AST 25 U/L (15-37); Albumin 3.3 g/dL (3.4-5.0); Alkaline Phosphatase 61 U/L (46-116); BUN 13 mg/dL (7-18); Bilirubin, Total 0.69 mg/dL (0.2-1.0); CREATININE 0.9 mg/dL (0.55-1.02); Calcium 8.9 mg/dL (8.5-10.1); Chloride 104 mmol/L (98-107); Glucose 89 mg/dL (74-106); Sodium 141 mmol/L (136-145); Total Protein 6.6 g/dL (6.4-8.2)
[2024-03-08 09:26] LABS: IgA 162 mg/dL (85-499); IgG 662 mg/dL (610-1616); IgM 28 mg/dL (35-242); Kappa Free Light Chain 1.53 mg/dL (0.33-1.94); Lambda Free Light Chain 1.25 mg/dL (0.57-2.63)
[2024-03-08 15:11] LABS: Albumin g/dL 3.8 g/dL (3.6-5.2); Total Protein 6.2 g/dL (6.3-8.2)
== END 2024-03-07 03:18 | disposition home or self-care (01) ==
PROVIDERS: Visit Provider Nurse Practitioner Adult Health
DX: C90.00 Multiple myeloma not having achieved remission (principal)
CPT/HCPCS: 36415; 80053; 82784; 83883; 84165; 85025

== ENCOUNTER 2024-04-06 01:24 | Outpatient (CLI) | payer MEDICARE, BC, SELFPAY ==
[2024-04-06 08:05] LABS: Abs Immature Grans 0.01 10^3/uL (0.0-0.06); Absolute Eosinophil Count 0.21 10^3/uL (0.0-0.7); Absolute Lymphocyte Count 1.87 10^3/uL (1.2-3.4); Absolute Monocyte Count 0.43 10^3/uL (0.1-0.8); Absolute Neutrophil Count 1.87 10^3/uL (1.2-6.7); Basophils % 2.2 %; Eosinophils % 4.7 %; HCT 37.6 % (36.0-46.0); HGB 12.7 g/dL (11.2-15.7); Immature Grans % 0.2 %; Lymphocytes % 41.6 %; MCH 31.1 pg (27.0-33.0); MCHC 33.8 % (32.0-36.0); MCV 92 fL (80-95); MPV 10.5 fL (8.0-11.0); Monocytes % 9.6 %; Neutrophils % 41.7 %; Platelet Count 179 10^3/uL (130-400); RBC 4.09 10^6/uL (3.93-5.22); RDW 13.1 % (11.7-14.6); RDW-SD 44.2 fL; WBC 4.49 10^3/uL (4.4-10.8)
[2024-04-06 08:15] LABS: ALT 47 U/L (14-59); AST 43 U/L (15-37); Albumin 3.4 g/dL (3.4-5.0); Alkaline Phosphatase 66 U/L (46-116); Anion Gap 6.8 mmol/L (3-11); BUN 11 mg/dL (7-18); Bilirubin, Total 0.67 mg/dL (0.2-1.0); CO2 27.2 mmol/L (21.0-32.0); CREATININE 0.9 mg/dL (0.55-1.02); Calcium 8.6 mg/dL (8.5-10.1); Chloride 107 mmol/L (98-107); Glucose 86 mg/dL (74-106); Potassium 3.8 mmol/L (3.5-5.1); Sodium 141 mmol/L (136-145); Total Protein 6.7 g/dL (6.4-8.2)
[2024-04-09 10:53] LABS: IgA 169 mg/dL (85-499); IgG 672 mg/dL (610-1616); IgM 22 mg/dL (35-242); Lambda Free Light Chain 1.12 mg/dL (0.57-2.63)
[2024-04-09 14:30] LABS: Albumin 61.9 % (55.8-66.1); Albumin g/dL 3.8 g/dL (3.6-5.2); Total Protein 6.2 g/dL (6.3-8.2)
== END 2024-04-06 01:25 | disposition home or self-care (01) ==
PROVIDERS: Visit Provider Nurse Practitioner Adult Health
DX: C90.00 Multiple myeloma not having achieved remission (principal)
CPT/HCPCS: 36415; 80053; 82784; 83883; 84165; 85025

== ENCOUNTER 2024-05-04 02:58 | Outpatient (CLI) | payer MEDICARE, BC, SELFPAY ==
[2024-05-04 08:09] LABS: Abs Immature Grans 0.02 10^3/uL (0.0-0.06); Absolute Basophil Count 0.11 10^3/uL (0.0-0.2); Absolute Eosinophil Count 0.19 10^3/uL (0.0-0.7); Absolute Lymphocyte Count 1.91 10^3/uL (1.2-3.4); Absolute Monocyte Count 0.45 10^3/uL (0.1-0.8); Basophils % 2.4 %; Eosinophils % 4.1 %; HCT 39.3 % (36.0-46.0); HGB 13.1 g/dL (11.2-15.7); Immature Grans % 0.4 %; Lymphocytes % 41.7 %; MCH 31.2 pg (27.0-33.0); MCHC 33.3 % (32.0-36.0); MCV 94 fL (80-95); MPV 10.7 fL (8.0-11.0); Monocytes % 9.8 %; Neutrophils % 41.6 %; Platelet Count 174 10^3/uL (130-400); RDW 13.3 % (11.7-14.6); RDW-SD 45.4 fL; WBC 4.58 10^3/uL (4.4-10.8)
[2024-05-04 08:28] LABS: ALT 34 U/L (14-59); AST 22 U/L (15-37); Albumin 3.4 g/dL (3.4-5.0); Alkaline Phosphatase 67 U/L (46-116); Anion Gap 11.8 mmol/L (3-11); BUN 14 mg/dL (7-18); Bilirubin, Total 0.85 mg/dL (0.2-1.0); CO2 24.2 mmol/L (21.0-32.0); CREATININE 0.9 mg/dL (0.55-1.02); Calcium 8.6 mg/dL (8.5-10.1); Chloride 107 mmol/L (98-107); Glucose 94 mg/dL (74-106); Potassium 4.1 mmol/L (3.5-5.1); Sodium 143 mmol/L (136-145); Total Protein 6.8 g/dL (6.4-8.2)
[2024-05-07 10:03] LABS: IgA 167 mg/dL (85-499); IgG 718 mg/dL (610-1616); IgM 27 mg/dL (35-242); Lambda Free Light Chain 1.35 mg/dL (0.57-2.63)
[2024-05-07 13:34] LABS: Albumin 61.8 % (55.8-66.1); Total Protein 6.4 g/dL (6.3-8.2)
== END 2024-05-04 02:59 | disposition home or self-care (01) ==
LOC: LBO 02:59
PROVIDERS: Visit Provider Nurse Practitioner Adult Health
DX: C90.00 Multiple myeloma not having achieved remission (principal)
CPT/HCPCS: 36415; 80053; 82784; 83883; 84165; 85025

== ENCOUNTER 2024-05-29 02:20 | Outpatient (CLI) | payer MEDICARE, BC, SELFPAY ==
[2024-05-29 07:53] LABS: Abs Immature Grans 0.01 10^3/uL (0.0-0.06); Absolute Basophil Count 0.14 10^3/uL (0.0-0.2); Absolute Eosinophil Count 0.32 10^3/uL (0.0-0.7); Absolute Lymphocyte Count 1.91 10^3/uL (1.2-3.4); Absolute Monocyte Count 0.46 10^3/uL (0.1-0.8); Absolute Neutrophil Count 2.96 10^3/uL (1.2-6.7); Basophils % 2.4 %; Eosinophils % 5.5 %; HCT 40.8 % (36.0-46.0); HGB 13.7 g/dL (11.2-15.7); Immature Grans % 0.2 %; Lymphocytes % 32.9 %; MCH 31.2 pg (27.0-33.0); MCHC 33.6 % (32.0-36.0); MCV 93 fL (80-95); MPV 10.4 fL (8.0-11.0); Monocytes % 7.9 %; Neutrophils % 51.1 %; Platelet Count 185 10^3/uL (130-400); RBC 4.39 10^6/uL (3.93-5.22); RDW 13.4 % (11.7-14.6); RDW-SD 45.6 fL
[2024-05-29 08:14] LABS: ALT 46 U/L (14-59); AST 27 U/L (15-37); Albumin 3.6 g/dL (3.4-5.0); Alkaline Phosphatase 68 U/L (46-116); Anion Gap 7.1 mmol/L (3-11); BUN 12 mg/dL (7-18); Bilirubin, Total 0.84 mg/dL (0.2-1.0); CO2 29.9 mmol/L (21.0-32.0); CREATININE 0.9 mg/dL (0.55-1.02); Calcium 9.2 mg/dL (8.5-10.1); Chloride 106 mmol/L (98-107); Glucose 106 mg/dL (74-106); Potassium 3.7 mmol/L (3.5-5.1); Sodium 143 mmol/L (136-145); Total Protein 7.3 g/dL (6.4-8.2)
[2024-05-30 09:12] LABS: IgA 181 mg/dL (85-499); IgG 745 mg/dL (610-1616); IgM 30 mg/dL (35-242); Kappa Free Light Chain 1.54 mg/dL (0.33-1.94); Lambda Free Light Chain 1.54 mg/dL (0.57-2.63)
[2024-05-30 13:18] LABS: Albumin 62.2 % (55.8-66.1); Albumin g/dL 4.2 g/dL (3.6-5.2); Total Protein 6.8 g/dL (6.3-8.2)
== END 2024-05-29 02:21 | disposition home or self-care (01) ==
PROVIDERS: Visit Provider Nurse Practitioner Adult Health
DX: C90.00 Multiple myeloma not having achieved remission (principal)
CPT/HCPCS: 36415; 80053; 82784; 83883; 84165; 85025

== ENCOUNTER 2024-08-01 04:12 | Outpatient (CLI) | payer MEDICARE, BC, SELFPAY ==
[2024-08-01 12:02] LABS: Abs Immature Grans 0.01 10^3/uL (0.0-0.06); Absolute Basophil Count 0.14 10^3/uL (0.0-0.2); Absolute Eosinophil Count 0.07 10^3/uL (0.0-0.7); Absolute Lymphocyte Count 2.04 10^3/uL (1.2-3.4); Absolute Monocyte Count 0.56 10^3/uL (0.1-0.8); Basophils % 2.2 %; Eosinophils % 1.1 %; HCT 42.8 % (36.0-46.0); HGB 14.3 g/dL (11.2-15.7); Immature Grans % 0.2 %; Lymphocytes % 31.8 %; MCH 31.2 pg (27.0-33.0); MCHC 33.4 % (32.0-36.0); MCV 93 fL (80-95); Monocytes % 8.7 %; Platelet Count 295 10^3/uL (130-400); RBC 4.59 10^6/uL (3.93-5.22); RDW 13.6 % (11.7-14.6); WBC 6.42 10^3/uL (4.4-10.8)
[2024-08-01 12:22] LABS: ALT 54 U/L (14-59); AST 24 U/L (15-37); Albumin 3.7 g/dL (3.4-5.0); Alkaline Phosphatase 77 U/L (46-116); Anion Gap 8.4 mmol/L (3-11); BUN 13 mg/dL (7-18); Bilirubin, Total 0.72 mg/dL (0.2-1.0); CO2 28.6 mmol/L (21.0-32.0); CREATININE 0.9 mg/dL (0.55-1.02); Calcium 8.9 mg/dL (8.5-10.1); Chloride 103 mmol/L (98-107); Glucose 79 mg/dL (74-106); Potassium 3.6 mmol/L (3.5-5.1); Sodium 140 mmol/L (136-145); Total Protein 7.6 g/dL (6.4-8.2)
[2024-08-02 11:14] LABS: IgA 200 mg/dL (85-499); IgG 764 mg/dL (610-1616); IgM 27 mg/dL (35-242); Lambda Free Light Chain 1.31 mg/dL (0.57-2.63)
[2024-08-02 13:11] LABS: Albumin 61.7 % (55.8-66.1); Albumin g/dL 4.4 g/dL (3.6-5.2); Total Protein 7.1 g/dL (6.3-8.2)
== END 2024-08-01 04:13 | disposition home or self-care (01) ==
PROVIDERS: Internal Medicine Hematology & Oncology; Visit Provider Nurse Practitioner Adult Health
DX: C90.00 Multiple myeloma not having achieved remission (principal)
CPT/HCPCS: 36415; 80053; 82784; 83883; 84165; 85025

== ENCOUNTER 2024-10-17 02:17 | Outpatient (CLI) | payer MEDICARE, BC, SELFPAY ==
[2024-10-17 07:53] LABS: Abs Immature Grans 0.01 10^3/uL (0.0-0.06); Absolute Basophil Count 0.12 10^3/uL (0.0-0.2); Absolute Eosinophil Count 0.37 10^3/uL (0.0-0.7); Absolute Lymphocyte Count 1.85 10^3/uL (1.2-3.4); Absolute Monocyte Count 0.49 10^3/uL (0.1-0.8); Absolute Neutrophil Count 2.56 10^3/uL (1.2-6.7); Basophils % 2.2 %; Eosinophils % 6.9 %; HCT 42.5 % (36.0-46.0); HGB 13.9 g/dL (11.2-15.7); Immature Grans % 0.2 %; Lymphocytes % 34.3 %; MCH 30.5 pg (27.0-33.0); MCHC 32.7 % (32.0-36.0); MCV 93 fL (80-95); MPV 10.2 fL (8.0-11.0); Monocytes % 9.1 %; Neutrophils % 47.3 %; Platelet Count 175 10^3/uL (130-400); RBC 4.55 10^6/uL (3.93-5.22); RDW 13.3 % (11.7-14.6); RDW-SD 45.5 fL
[2024-10-17 08:11] LABS: ALT 52 U/L (14-59); AST 29 U/L (15-37); Albumin 3.7 g/dL (3.4-5.0); Alkaline Phosphatase 65 U/L (46-116); Anion Gap 9.6 mmol/L (3-11); BUN 13 mg/dL (7-18); Bilirubin, Total 0.8 mg/dL (0.2-1.0); CO2 30.4 mmol/L (21.0-32.0); CREATININE 0.9 mg/dL (0.55-1.02); Chloride 104 mmol/L (98-107); Glucose 91 mg/dL (74-106); PHOSPHORUS 4.5 mg/dL (2.6-4.7); Potassium 3.8 mmol/L (3.5-5.1); Sodium 144 mmol/L (136-145); Total Protein 7.2 g/dL (6.4-8.2)
[2024-10-18 11:34] LABS: IgA 191 mg/dL (85-499); IgG 728 mg/dL (610-1616); IgM 25 mg/dL (35-242); Kappa Free Light Chain 1.58 mg/dL (0.33-1.94); Lambda Free Light Chain 1.45 mg/dL (0.57-2.63)
[2024-10-18 13:12] LABS: Albumin 61.5 % (55.8-66.1); Albumin g/dL 4.1 g/dL (3.6-5.2); Total Protein 6.7 g/dL (6.3-8.2)
== END 2024-10-17 02:18 | disposition home or self-care (01) ==
PROVIDERS: Visit Provider Nurse Practitioner Adult Health
DX: C90.01 Multiple myeloma in remission
CPT/HCPCS: 36415; 80053; 82784; 83883; 84100; 84165; 85025

== ENCOUNTER 2024-12-11 02:29 | Outpatient (CLI) | payer MEDICARE, BC, SELFPAY ==
[2024-12-11 08:12] LABS: Abs Immature Grans 0.02 10^3/uL (0.0-0.06); Absolute Basophil Count 0.13 10^3/uL (0.0-0.2); Absolute Eosinophil Count 0.29 10^3/uL (0.0-0.7); Absolute Lymphocyte Count 1.89 10^3/uL (1.2-3.4); Absolute Monocyte Count 0.57 10^3/uL (0.1-0.8); Absolute Neutrophil Count 2.59 10^3/uL (1.2-6.7); Basophils % 2.4 %; Eosinophils % 5.3 %; HCT 42.9 % (36.0-46.0); HGB 14.2 g/dL (11.2-15.7); Immature Grans % 0.4 %; Lymphocytes % 34.4 %; MCH 30.6 pg (27.0-33.0); MCHC 33.1 % (32.0-36.0); MCV 93 fL (80-95); MPV 10.8 fL (8.0-11.0); Monocytes % 10.4 %; Neutrophils % 47.1 %; Platelet Count 194 10^3/uL (130-400); RBC 4.64 10^6/uL (3.93-5.22); RDW 13.3 % (11.7-14.6); RDW-SD 45.4 fL; WBC 5.49 10^3/uL (4.4-10.8)
[2024-12-11 08:33] LABS: ALT 56 U/L (14-59); AST 34 U/L (15-37); Albumin 3.8 g/dL (3.4-5.0); Alkaline Phosphatase 66 U/L (46-116); Anion Gap 7.8 mmol/L (3-11); BUN 13 mg/dL (7-18); Bilirubin, Total 0.9 mg/dL (0.2-1.0); CO2 29.2 mmol/L (21.0-32.0); CREATININE 0.9 mg/dL (0.55-1.02); Calcium 9.1 mg/dL (8.5-10.1); Chloride 104 mmol/L (98-107); Estimated GFR 68.77 (mL/min/1.73m2); Glucose 94 mg/dL (74-106); Potassium 3.8 mmol/L (3.5-5.1); Sodium 141 mmol/L (136-145); Total Protein 7.5 g/dL (6.4-8.2)
[2024-12-12 09:06] LABS: IgA 184 mg/dL (85-499); IgG 745 mg/dL (610-1616); IgM 23 mg/dL (35-242); Lambda Free Light Chain 1.36 mg/dL (0.57-2.63)
[2024-12-12 13:33] LABS: Albumin 61.8 % (55.8-66.1); Albumin g/dL 4.2 g/dL (3.6-5.2); Total Protein 6.8 g/dL (6.3-8.2)
== END 2024-12-11 02:30 | disposition home or self-care (01) ==
PROVIDERS: Visit Provider Nurse Practitioner Adult Health
DX: C90.00 Multiple myeloma not having achieved remission (principal)
CPT/HCPCS: 36415; 80053; 82784; 83883; 84165; 85025

== ENCOUNTER 2025-02-05 03:44 | Outpatient (CLI) | payer MEDICARE, BC, SELFPAY ==
[2025-02-05 08:12] LABS: Abs Immature Grans 0.01 10^3/uL (0.0-0.06); HCT 37.9 % (36.0-46.0); HGB 12.8 g/dL (11.2-15.7); Immature Grans % 0.2 %; MCH 31.1 pg (27.0-33.0); MCHC 33.8 % (32.0-36.0); MCV 92 fL (80-95); MPV 10.6 fL (8.0-11.0); Platelet Count 179 10^3/uL (130-400); RBC 4.11 10^6/uL (3.93-5.22); RDW 13.4 % (11.7-14.6); RDW-SD 45.7 fL; WBC 5.15 10^3/uL (4.4-10.8)
[2025-02-05 09:14] LABS: ALT 58 U/L (14-59); AST 33 U/L (15-37); Albumin 3.5 g/dL (3.4-5.0); Alkaline Phosphatase 66 U/L (46-116); Anion Gap 11.1 mmol/L (3-11); BUN 11 mg/dL (7-18); Bilirubin, Total 0.7 mg/dL (0.2-1.0); CO2 26.9 mmol/L (21.0-32.0); Calcium 8.7 mg/dL (8.5-10.1); Chloride 104 mmol/L (98-107); Estimated GFR 79.22 (mL/min/1.73m2); Glucose 90 mg/dL (74-106); Potassium 4.0 mmol/L (3.5-5.1); Sodium 142 mmol/L (136-145); Total Protein 6.9 g/dL (6.4-8.2)
[2025-02-05 17:49] LABS: Total Protein 6.3 g/dL (6.3-8.2)
[2025-02-06 09:24] LABS: Kappa Free Light Chain 1.43 mg/dL (0.33-1.94); Lambda Free Light Chain 1.45 mg/dL (0.57-2.63)
[2025-02-06 14:02] LABS: Albumin 62.4 % (55.8-66.1); Albumin g/dL 3.9 g/dL (3.6-5.2); Alpha 1 g/dL 0.20 g/dL (0.15-0.40); Alpha 2 g/dL 0.60 g/dL (0.50-1.00); Beta g/dL 0.90 g/dL (0.60-1.20); Gamma g/dL 0.70 g/dL (0.60-1.60)
== END 2025-02-05 03:45 | disposition home or self-care (01) ==
PROVIDERS: Visit Provider Nurse Practitioner Adult Health
DX: C90.00 Multiple myeloma not having achieved remission (principal)
CPT/HCPCS: 36415; 80053; 82784; 83883; 84165; 85025

== ENCOUNTER 2025-04-10 13:24 | Outpatient (CLI) | payer MEDICARE, BC, SELFPAY ==
--- NOTE | 2025-04-10 | DI.RAD_ITS ---
Exam(s) XR HIP RT COMPLETE AP PELVIS EXAM: XR HIP RT COMPLETE AP PELVIS CLINICAL HISTORY: MULTIPLE MYELOMA NOT HAVING REMISSION, C90.00, NEG PET, RT HIP PAIN. TECHNIQUE: 2D digital imaging was performed of the right hip. Three images were obtained. AP pelvis and lateral right hip views were obtained. COMPARISON: CR XR BONE SURVEY from 09/28/2019 FINDINGS: BONES: No acute fracture is present. No bony destructive lesion is seen. There is a round lucency in the diaphysis of the right femur appreciated on the AP view of the right hip and on the lateral view. JOINTS: No dislocation present. The hips are well maintained. The sacroiliac joints and symphysis pubis are unremarkable. There are degenerative changes seen in the visualized lower lumbar spine. SOFT TISSUE: Normal. IMPRESSION: 1. Solitary lytic lesion in the proximal diaphysis of the right femur. No other lytic lesions are seen. 2. There is no acute fracture or dislocation. DATA REPOSITORY: RADIATION DOSE DELIVERED:
== END 2025-04-10 13:44 ==
LOC: DI 05-24 13:24
PROVIDERS: Visit Provider Internal Medicine Hematology & Oncology
DX: M89.8X8 Other specified disorders of bone, other site (principal)
CPT/HCPCS: 73502

== ENCOUNTER 2025-04-22 04:17 | Outpatient (CLI) | payer MEDICARE, BC, SELFPAY ==
[2025-04-22 09:29] LABS: Abs Immature Grans 0.02 10^3/uL (0.0-0.06); HCT 39.4 % (36.0-46.0); HGB 13.2 g/dL (11.2-15.7); Immature Grans % 0.3 %; MCH 31.2 pg (27.0-33.0); MCHC 33.5 % (32.0-36.0); MCV 93 fL (80-95); MPV 10.7 fL (8.0-11.0); Platelet Count 266 10^3/uL (130-400); RBC 4.23 10^6/uL (3.93-5.22); RDW 13.2 % (11.7-14.6); RDW-SD 45.2 fL; WBC 6.57 10^3/uL (4.4-10.8)
[2025-04-22 09:40] LABS: ALT 29 U/L (14-59); AST 23 U/L (15-37); Albumin 3.6 g/dL (3.4-5.0); Alkaline Phosphatase 66 U/L (46-116); Anion Gap 11.2 mmol/L (3-11); BUN 10 mg/dL (7-18); Bilirubin, Total 0.8 mg/dL (0.2-1.0); CO2 26.8 mmol/L (21.0-32.0); Calcium 9.3 mg/dL (8.5-10.1); Chloride 101 mmol/L (98-107); Estimated GFR 60.61 (mL/min/1.73m2); Glucose 132 mg/dL (74-106); Potassium 3.8 mmol/L (3.5-5.1); Sodium 139 mmol/L (136-145); Total Protein 7.2 g/dL (6.4-8.2)
[2025-04-23 09:07] LABS: Kappa Free Light Chain 1.38 mg/dL (0.33-1.94); Lambda Free Light Chain 1.31 mg/dL (0.57-2.63)
[2025-04-23 13:20] LABS: Albumin 59.7 % (55.8-66.1); Albumin g/dL 3.9 g/dL (3.6-5.2); Alpha 1 g/dL 0.30 g/dL (0.15-0.40); Alpha 2 g/dL 0.70 g/dL (0.50-1.00); Beta g/dL 0.90 g/dL (0.60-1.20); Gamma g/dL 0.70 g/dL (0.60-1.60); Total Protein 6.6 g/dL (6.3-8.2)
== END 2025-04-22 04:18 | disposition home or self-care (01) ==
PROVIDERS: Visit Provider Nurse Practitioner Adult Health
DX: C90.00 Multiple myeloma not having achieved remission (principal)
CPT/HCPCS: 36415; 80053; 82784; 83883; 84165; 85025

== ENCOUNTER 2025-05-30 01:30 | Outpatient (CLI) | payer MEDICARE, BC, SELFPAY ==
[2025-05-30 08:33] LABS: Abs Immature Grans 0.01 10^3/uL (0.0-0.06); HCT 38.7 % (36.0-46.0); HGB 12.8 g/dL (11.2-15.7); Immature Grans % 0.2 %; MCH 30.5 pg (27.0-33.0); MCHC 33.1 % (32.0-36.0); MCV 92 fL (80-95); MPV 10.4 fL (8.0-11.0); Platelet Count 193 10^3/uL (130-400); RBC 4.19 10^6/uL (3.93-5.22); RDW 13.3 % (11.7-14.6); RDW-SD 45.1 fL; WBC 5.37 10^3/uL (4.4-10.8)
[2025-05-30 09:00] LABS: ALT 51 U/L (14-59); AST 31 U/L (15-37); Albumin 3.6 g/dL (3.4-5.0); Alkaline Phosphatase 67 U/L (46-116); Anion Gap 9.1 mmol/L (3-11); BUN 11 mg/dL (7-18); Bilirubin, Total 0.8 mg/dL (0.2-1.0); CO2 29.9 mmol/L (21.0-32.0); Calcium 8.7 mg/dL (8.5-10.1); Chloride 101 mmol/L (98-107); Glucose 91 mg/dL (74-106); Potassium 4.0 mmol/L (3.5-5.1); Sodium 140 mmol/L (136-145); Total Protein 7.1 g/dL (6.4-8.2)
[2025-05-31 09:28] LABS: Kappa Free Light Chain 1.52 mg/dL (0.33-1.94); Lambda Free Light Chain 1.45 mg/dL (0.57-2.63)
[2025-05-31 10:04] LABS: Albumin 61.5 % (55.8-66.1); Albumin g/dL 4.3 g/dL (3.6-5.2); Alpha 1 g/dL 0.20 g/dL (0.15-0.40); Alpha 2 g/dL 0.70 g/dL (0.50-1.00); Beta g/dL 1.00 g/dL (0.60-1.20); Gamma g/dL 0.80 g/dL (0.60-1.60); Total Protein 7.0 g/dL (6.3-8.2)
== END 2025-05-30 01:31 | disposition home or self-care (01) ==
PROVIDERS: Visit Provider Nurse Practitioner Adult Health
DX: C90.00 Multiple myeloma not having achieved remission (principal)
CPT/HCPCS: 36415; 80053; 82784; 83883; 84165; 85025

== ENCOUNTER → 2025-06-14 02:42 | Outpatient (CLI) | payer MEDICARE, BC, SELFPAY ==
--- NOTE | 2025-06-14 10:23 | DI.MAMMO_ITS ---
Exam(s) MAMMO SCREENING EXAM: MAMMO SCREENING CLINICAL HISTORY: SCREENING,Z12.31 TECHNIQUE: Mammograms were interpreted according to the usual protocol including computer analysis with CAD system, tomosynthesis and C-view imaging. COMPARISON: 2015 through 2022 FINDINGS: The breasts are composed of scattered fibroglandular densities, Breast Density category B. No suspicious masses or suspicious microcalcifications are seen. No skin thickening or abnormal axillary lymph nodes are seen. There has been no significant change from prior exams. IMPRESSION: BI-RADS Category 1, Negative mammogram Yearly screening mammography is recommended. Breast Density - Category B - There are scattered areas of fibroglandular density. Breast density Category C or D implies that the patient has dense breast tissue. Dense breast tissue can make it harder to find cancer on a mammogram. Dense breast tissue is also associated with an increased risk of breast cancer. This information about the result of the mammogram report was provided to the patient to raise their awareness. Use this report when you speak with the patient about their risks for breast cancer, which includes their family history. At that time, you may recommend additional screening tests (Ultrasound or MRI) as these tests may add significant information. A negative radiographic report should not delay biopsy if a dominant or clinically suspicious mass is present. Up to ten percent of cancers are not identified on mammography. A negative report may reinforce clinical impression. Adenosis and dense breasts may obscure an underlying neoplasm. False positive reports average 6 to 10%. Patient will receive a letter notifying them of these results.
== END ==
LOC: DI 02:42
PROVIDERS: PCP Physician Assistant Medical; Visit Provider Nurse Practitioner
DX: Z12.31 Encounter for screening mammogram for malignant neoplasm of breast (principal); R92.323 Mammographic fibroglandular density, bilateral breasts
CPT/HCPCS: 77063; 77067

== ENCOUNTER 2025-07-23 00:18 | Outpatient (CLI) | payer MEDICARE, BC, SELFPAY ==
[2025-07-23 08:08] LABS: Abs Immature Grans 0.00 10^3/uL (0.0-0.06); HCT 37.8 % (36.0-46.0); HGB 12.4 g/dL (11.2-15.7); Immature Grans % 0.0 %; MCH 30.7 pg (27.0-33.0); MCHC 32.8 % (32.0-36.0); MCV 94 fL (80-95); MPV 10.8 fL (8.0-11.0); Platelet Count 175 10^3/uL (130-400); RBC 4.04 10^6/uL (3.93-5.22); RDW 13.3 % (11.7-14.6); RDW-SD 46.0 fL; WBC 4.12 10^3/uL (4.4-10.8)
[2025-07-23 09:26] LABS: ALT 19 U/L (10-49); AST 21 U/L (<34); Albumin 4.2 g/dL (3.2-5.0); Alkaline Phosphatase 52 U/L (46-116); Anion Gap 9.7 mmol/L (3-11); BUN 14 mg/dL (9-23); Bilirubin, Total 0.5 mg/dL (0.2-1.2); CO2 26.3 mmol/L (20.0-31.0); Calcium 8.6 mg/dL (8.3-10.6); Chloride 108 mmol/L (98-107); Glucose 90 mg/dL (74-106); Potassium 3.6 mmol/L (3.5-5.1); Sodium 144 mmol/L (136-145); Total Protein 6.8 g/dL (5.7-8.2)
[2025-07-24 12:22] LABS: Albumin 61.8 % (55.8-66.1); Albumin g/dL 4.1 g/dL (3.6-5.2); Alpha 1 g/dL 0.30 g/dL (0.15-0.40); Alpha 2 g/dL 0.60 g/dL (0.50-1.00); Beta g/dL 0.90 g/dL (0.60-1.20); Gamma g/dL 0.80 g/dL (0.60-1.60); Total Protein 6.6 g/dL (6.3-8.2)
[2025-07-24 15:16] LABS: Kappa Free Light Chain 1.71 mg/dL (0.33-1.94); Lambda Free Light Chain 1.93 mg/dL (0.57-2.63)
== END 2025-07-23 00:19 | disposition home or self-care (01) ==
PROVIDERS: PCP Physician Assistant Medical; Visit Provider Nurse Practitioner Adult Health
DX: C90.00 Multiple myeloma not having achieved remission (principal)
CPT/HCPCS: 36415; 80053; 82784; 83883; 84165; 85025